=== PATIENT | male | born 1935 | race Caucasian/White ===

== ENCOUNTER 2016-11-25 16:41 | Inpatient (IN) ==
[2016-11-25] MEDS ORDERED: Furosemide 20 MG/2 ML VIAL IVP ONE (17:11)
[2016-11-25] MEDS ORDERED: Nitroglycerin 1 INCH/GM PACKET TP ONE (17:11)
[2016-11-25 17:22] LABS: Basophils # 0.1 K/mcL (0.0-0.2); Basophils % 0.6 %; Eosinophils # 0.5 K/mcL (0.0-0.6); Eosinophils % 6.3 %; Hematocrit 36.1 % (37.5-50.1); Immature Granulocytes % 0.2 % (0-4); Immature Platelets 3.3 % (1.1-6.1); Lymphocytes # 1.9 K/mcL (0.6-4.6); Lymphocytes % 23.6 %; Mean Corpuscular HGB Conc 30.5 g/dL (31.6-35.5); Mean Corpuscular Hemoglobin 28.5 pg (28.0-33.3); Mean Corpuscular Volume 93.5 fL (83.0-100.0); Mean Platelet Volume 9.9 fL (9.4-12.4); Monocytes # 0.6 K/mcL (0.0-1.3); Monocytes % 7.6 %; Platelet Count 176 K/mcL (140-400); Red Blood Count 3.86 M/mcL (4.19-5.50); Segmented Neutrophils % 61.7 %
--- NOTE | 2016-11-25 17:28 | Emergency Department Note ---
Disposition Clinical Impression: CHF (congestive heart failure) Qualifiers: Congestive heart failure type: unspecified congestive heart failure type Congestive heart failure chronicity: acute on chronic Qualified Code(s): I50.9 - Heart failure, unspecified Disposition: Admitted As Inpatient Condition: Fair Time of Disposition: 18:12 General Adult HPI - General Chief complaint: ED Shortness of Breath/Dyspnea Stated complaint: CHF Time Seen by Provider: 11/25/16 16:50 Source: EMS Mode of arrival: EMS Limitations: no limitations Nursing Notes Reviewed: Yes Vital Signs Reviewed: Yes - History of Present Illness HPI Narrative: Patient is a 81-year-old male with past medical history of CHF, CAD, COPD, triple CABG presenting from the [place] urgent care. According to EMS the patient has increasing swelling of his lower extremities and a right-sided pleural effusion that is increasing. The patient does not have any complaints at this time however he does appear to have mild dementia. He states the swelling has been going on for months and is beginning 1 pound per day he does have mild shortness of breath. His denies any fevers or chills no chest pain, nausea, diaphoresis. He states he does have a dry cough which is new. Pain Scale: 0 - Related Data Home Medications Medication Instructions Recorded Confirmed Albuterol Sulfate [Albuterol 2 puff IH BID PRN 01/18/16 01/18/16 Inhaler] Allopurinol [Zyloprim 300 MG] 300 mg PO DAILY 01/18/16 01/18/16 Aspirin 81 mg PO DAILY 01/18/16 01/18/16 Calcium Carbonate/Vitamin D3 1 each PO BID 01/18/16 01/18/16 [Calcium 500 + Vit D 200 Caplet] Carvedilol [Coreg] 6.25 mg PO BIDWM 01/18/16 01/18/16 Cholecalciferol (D-3) [Vitamin D] 1,000 unit PO TID 01/18/16 01/18/16 Clopidogrel [Plavix] 75 mg PO DAILY 01/18/16 01/18/16 Digoxin [Lanoxin] 0.125 mg PO MOWEFR 01/18/16 01/18/16 Docusate Sodium [Dok] 100 mg PO BID 01/18/16 01/18/16 Eplerenone [Inspra] 25 mg PO Q48H 01/18/16 01/18/16 Ergocalciferol (VITAMIN D2) 50,000 unit PO QWEEK 01/18/16 01/18/16 [Vitamin D2 (50,000 UNIT)] Ferrous Sulfate 325 mg PO DAILY 01/18/16 01/18/16 Fluorouracil [Fluoroplex] 1 appl TP BID 01/18/16 01/18/16 Furosemide [Lasix] 40 mg PO BID 01/18/16 01/18/16 Gabapentin [Neurontin] 200 mg PO QAM 01/18/16 01/18/16 Gabapentin [Neurontin] 300 mg PO HS 01/18/16 01/18/16 Meclizine HCl [Verticalm] 25 mg PO BID 01/18/16 01/18/16 Nitroglycerin [Nitrostat] 0.4 mg SL AD PRN 01/18/16 01/18/16 Pantoprazole Sodium [Protonix] 40 mg PO DAILY 01/18/16 01/18/16 Sennosides [Senna] 8.6 mg PO TID 01/18/16 01/18/16 glipiZIDE [Glipizide] 20 mg PO BID 01/18/16 01/18/16 Previous Rx's Medication Instructions Recorded levoFLOXacin [Levaquin] 500 mg PO DAILY #7 tablet 07/24/15 Allergies Allergy/AdvReac Type Severity Reaction Status Date / Time atorvastatin Allergy Anaphylaxis Verified 11/25/16 16:47 rosuvastatin Allergy Anaphylaxis Verified 11/25/16 16:47 spironolactone Allergy Anaphylaxis Verified 11/25/16 16:47 Past Medical History - Past Medical History Medical history: Reports: diabetes, renal disease, atrial fibrillation, hyperlipidemia, CHF, COPD Psychiatric history: Reports: other - Social History Smoking Status: Never smoker Smokeless Tobacco Status: No Alcohol use: Reports: none Drug use: Reports: none Physical Exam - General General appearance: alert, in no apparent distress - Head Head exam: atraumatic, normocephalic, normal inspection - Eye Eye exam: Present: normal appearance, PERRL, EOMI - ENT ENT exam: normal exam, normal oropharynx, mucous membranes moist - Neck Neck exam: Present: normal inspection, full ROM, trachea midline. Absent: tenderness - Chest Chest inspection: Present: normal inspection, symmetric chest wall rise. Absent : tenderness - Respiratory Respiratory exam: Absent: respiratory distress, wheezes, stridor - Expanded Respiratory Exam Location: rales: Right - Cardiovascular Cardiovascular exam: Present: regular rate, normal rhythm, normal heart sounds Course Course Narrative: This patient is a transfer from the [place] urgent care. According to the [place] medical record that came with the patient today. The patient is complaining of weight gain from August 2016 until today 179 pounds to 204 pounds. He also had a blood pressure remained 121/70 and now it is 94/59. The patient states she is also had weakness that makes it difficult for him to walk he was discharged from his group home today. He is also discharged from [facility] on October 29 and [facility] day he was originally admitted there for altered level of consciousness where he underwent an EEG and there is no sign of seizure activity and they attributed it to keep duration of pain medications in his system. His stressors here with a diagnosis of hypotension, CHF chronic, CAD, and CKD stage III. At the group home the patient had lab work and imaging performed. Chem panel showed a creatinine of 1.99 and a potassium of 5.4. CBC showed a hemoglobin of 11.3. The patient had a BNP of 2111. Coags were normal. CK was 142 which is normal. Liver enzymes and bilirubin were unremarkable. Magnesium was 2.8. Glucose is 114. The patient had a chest x-ray done at the [place] which showed cardiomegaly with interval increase in size of the right pleural effusion. 6 was considered to be small to medium underlying atelectasis/pneumonia at the right base likely. - Reevaluation(s) Reevaluation #1: Plan is to repeat the labs from the [place] here today including basic labs, BNP, troponin will perform a 2 view x-ray of the patient's chest. We will treat him with 20 mg of Lasix and nitroglycerin paste. The plan is to admit the patient for further evaluation and treatment of his symptoms. Time: 17:56 Reevaluation #2: Spoke with the hospitalists Dr. Gayla Culver, she agrees to accept the patient and requested we order DVT studies in the ED. She states that she will follow up with the results of the study inpatient. Time: 18:22 Vital Signs Temperature 97.8 F 11/25/16 16:44 Pulse Rate 74 11/25/16 16:44 Respiratory Rate 16 11/25/16 16:44 Blood Pressure 114/65 11/25/16 16:44 O2 Sat by Pulse Oximetry 97 11/25/16 16:44 Temperature 97.8 F 11/25/16 16:44 Pulse Rate 74 11/25/16 16:44 Respiratory Rate 16 11/25/16 16:44 Blood Pressure 114/65 11/25/16 16:44 O2 Sat by Pulse Oximetry 97 11/25/16 16:44 Oxygen Delivery Oxygen Delivery Room Air Medical Decision Making - Medical Records Medical records reviewed: Yes I reviewed the patient's medical records. - Lab Data Lab results reviewed: Yes I reviewed the patient's lab results. Result diagrams: 11/25/16 17:16 11/25/16 17:16 Lab Results 11/25/16 11/25/16 11/25/16 Range/Units 17:16 17:16 17:16 WBC 8.1 (4.3-11.1) K/mcL RBC 3.86 L (4.19-5.50) M/mcL Hgb 11.0 L (12.9-16.9) g/dL Hct 36.1 L (37.5-50.1) % MCV 93.5 (83.0-100.0) fL MCH 28.5 (28.0-33.3) pg MCHC 30.5 L (31.6-35.5) g/dL RDW 16.0 H (11.5-14.5) % Plt Count 176 (140-400) K/mcL MPV 9.9 (9.4-12.4) fL Immature Gran % 0.2 (0-4) % Seg Neutrophils % 61.7 % Lymphocytes % 23.6 % Monocytes % 7.6 % Eosinophils % 6.3 % Basophils % 0.6 % Neutrophils # 5.0 (1.6-8.9) K/mcL Lymphocytes # 1.9 (0.6-4.6) K/mcL Monocytes # 0.6 (0.0-1.3) K/mcL Eosinophils # 0.5 (0.0-0.6) K/mcL Basophils # 0.1 (0.0-0.2) K/mcL Immature Plt Fraction 3.3 (1.1-6.1) % Sodium 139 (136-145) mEq/L Potassium 4.3 (3.5-4.5) mEq/L Chloride 102 (98-109) mEq/L Carbon Dioxide 31 H (19-29) mEq/L BUN 40 H (8-26) mg/dL Creatinine 2.04 H (0.72-1.25) mg/dL Est GFR ( Amer) 38 L (> 60) Est GFR (Non-Af Amer) 32 L (> 60) BUN/Creatinine Ratio 20 (6-26) Glucose 104 H (70-99) mg/dL Calculated Osmolality 298 (280-300) Calcium 9.3 (8.6-10.8) mg/dL Troponin I 0.02 (0-0.03) ng/mL B-Natriuretic Peptide (0-100) pg/mL Digoxin 0.4 L (0.8-2.0) ng/mL // Range/Units 17:16 WBC (4.3-11.1) K/mcL RBC (4.19-5.50) M/mcL Hgb (12.9-16.9) g/dL Hct (37.5-50.1) % MCV (83.0-100.0) fL MCH (28.0-33.3) pg MCHC (31.6-35.5) g/dL RDW (11.5-14.5) % Plt Count (140-400) K/mcL MPV (9.4-12.4) fL Immature Gran % (0-4) % Seg Neutrophils % % Lymphocytes % % Monocytes % % Eosinophils % % Basophils % % Neutrophils # (1.6-8.9) K/mcL Lymphocytes # (0.6-4.6) K/mcL Monocytes # (0.0-1.3) K/mcL Eosinophils # (0.0-0.6) K/mcL Basophils # (0.0-0.2) K/mcL Immature Plt Fraction (1.1-6.1) % Sodium (136-145) mEq/L Potassium (3.5-4.5) mEq/L Chloride (98-109) mEq/L Carbon Dioxide (19-29) mEq/L BUN (8-26) mg/dL Creatinine (0.72-1.25) mg/dL Est GFR ( Amer) (> 60) Est GFR (Non-Af Amer) (> 60) BUN/Creatinine Ratio (6-26) Glucose (70-99) mg/dL Calculated Osmolality (280-300) Calcium (8.6-10.8) mg/dL Troponin I (0-0.03) ng/mL B-Natriuretic Peptide 559 H (0-100) pg/mL Digoxin (0.8-2.0) ng/mL - Radiology Data Radiology results reviewed: Yes I reviewed the patient's radiology results. Chest X-Ray 11/25/16 17:02 IMPRESSION: Focal airspace disease at the right lung base which is indeterminate and may represent atelectasis or pneumonia. A small right pleural effusion not excluded Prominent markings bilaterally raise the question of a background of edema D/ / Zion Hicks / Zion Hicks Interpreting Provider: Zion Hicks - EKG Data EKG #1 EKG attestation: Yes I reviewed and interpreted this EKG. EKG results narrative: Intravenous EKG. Performed at 16:50. EKG is a ventricular paced rhythm at 72 bpm. AL interval 62, QRS is 124, QTC is 431 QTc is 455 intervals within normal ranges. This is unchanged EKG when compared to the EKG done on 01/18/2016. Attestation Statement - Attestation Attestation: I personally interviewed and examined this patient and my medical decision- making was reviewed with the Resident Physician, Dr. Urbina. I agree with the documented findings, disposition and treatment plan as described except to the extent set forth below. Patient is a 81-year-old white male with a history of CHF, COPD, CAD who is sent [place] us from [place] urgent care with complaints of shortness of breath, any increasing bilateral lower extremity edema. Patient was just discharged from an extended care facility earlier today and upon arriving home was having difficulty ambulating due to the extent of his lower extremity edema and was having significant shortness of breath with ambulation. Family took him for evaluation at the urgent care and he was referred here for further evaluation. They had done labs and a portal chest x-ray at the [place] urgent care which showed some worsening of a pleural effusion that they had prior imaging of. Patient on arrival is in no acute distress, no respiratory distress is resting comfortably at bedside and has no complaints at this time. He appears mildly confused but is alert and oriented 2. I agree with patient's physical exam findings as documented. Patient's EKG is unchanged from prior with no acute ischemic change. Patient was placed on a home energy auditor continuous pulse ox and administered aspirin and 20 of Lasix at the [place] prior to arrival here. Patient will receive an additional 20 mg of Lasix and Nitropaste. Labs show an elevated BNP, acute on chronic renal insufficiency, and trace right pleural effusion with mild CHF on chest x-ray. Patient has remained stable with stable vital signs throughout his ED course. We will admit him for further evaluation and management of CHF and likely patient will need psych social worker consult for placement upon discharge.
[2016-11-25 17:34] LABS: Calcium 9.3 mg/dL (8.6-10.8); Potassium 4.3 mEq/L (3.5-4.5)
[2016-11-25 17:52] LABS: Digoxin 0.4 ng/mL (0.8-2.0)
[2016-11-25] MEDS ORDERED: Naloxone 0.4 MG/ML INJ IVP PRN (20:11)
[2016-11-25] MEDS ORDERED: Ondansetron 4 MG/2 ML VIAL IVP PRN (20:11)
[2016-11-25] MEDS ORDERED: *HR* Dextrose 50 % in Water (Syg) 50 ML SYRINGE IVP PRN (20:11)
[2016-11-25] MEDS ORDERED: Dextrose Gel 15 GM PO PRN ×2 (20:11)
[2016-11-25] MEDS ORDERED: *HR* Morphine 2 MG/ML SYRINGE IVP PRN (20:11)
[2016-11-25] MEDS ORDERED: D5% in Water 1,000 ML IVC PRN (20:11)
[2016-11-25] MEDS ORDERED: Acetaminophen 325 MG TABLET PO PRN (20:11)
[2016-11-25] MEDS ORDERED: Nitroglycerin 0.4 MG TAB.SUBL SL PRN (20:14)
--- NOTE | 2016-11-25 20:54 | Internal Med History&Physical ---
Date of Encounter: 11/25/16 Time of Encounter: 20:10 Assessment and Plan (1) CHF (congestive heart failure) Current visit: Yes Status: Acute 1. Will start patient on IV Lasix drip and monitor I/O closely. 2. Will order ECHO for the morning as I am unable to find any recent ECHO report through our and [place] records available to me. 3. Continue home meds as appropriate. 4. Will provide oxygen as necessary for symptom relief. Qualifiers: Congestive heart failure type: systolic Congestive heart failure chronicity : acute on chronic Qualified Code(s): I50.23 - Acute on chronic systolic ( congestive) heart failure (2) CKD (chronic kidney disease) stage 3, GFR 30-59 ml/min Current visit: Yes Status: Chronic 1. Monitor renal function and I/O closely. 2. No MARLO for now due to CHF exacerbation and CKD. 3. Patient does not see a tar boiler at [place] per our discussion. 4. He would benefit from outpatient nephrology follow up. 5. Consider inpatient consult if renal function declines. (3) IDDM (insulin dependent diabetes mellitus) Current visit: Yes Status: Chronic 1. Will continue home Lantus dosing and SSI. 2. No oral agents (Glipizide) while in the hospital. 3. Given his CKD, I recommend stopping his Glipizide upon discharge as it could lead to hypoglycemia. (4) DVT prophylaxis Current visit: Yes Status: Acute 1. Heparin SQ. Internal Medicine - H&P: HPI Chief complaint: SOB; LE edema Admitted From: Emergency Dept Plans for Post Hospital Care: Home History of present illness: Mr. Krishna is a 81 year old male who was sent to the ER from the [facility] today. He presented there with complaints of shortness of breath, increasing lower extremity edema, and increasing abdominal girth. Because of the symptoms and history of CHF, he was referred to our ER. In the ER, patient had workup consistent with CHF and he was treated initially with IV dose of Lasix. He started to urinate and is starting to feel better. Upon my assessment of the patient, he states he has been hospitalized 5 times now in the last 2 months for CHF. He has chronic kidney disease and chronic systolic heart failure. He states his ejection fraction is around 25%. He states he has been doing well until a few months ago when he started developing increasing lower extremity edema and abdominal girth. He states his waist has increased about 3 inches in size over the last few months. He also states he has gained about 30 pounds. He denies any change in medications and/or diet or fluid intake. He denies any fevers, productive cough, chills, body aches, nausea, or vomiting. He denies any anginal type chest pain as well. He does admit to having orthopnea and paroxysmal nocturnal dyspnea, however. Past Med Surg Social Fam HX - Past Medical History Attestation: Yes The following information was validated with the patient. Source: patient, old records reviewed Medical history: diabetes, renal disease, atrial fibrillation, hyperlipidemia, CHF, COPD Psychiatric history: no psych history - Past Surgical History Surgical History: pacemaker/AICD - Social History Smoking Status: Never smoker Smokeless Tobacco Status: No Alcohol use: none Drug use: none Occupational status: retired Current living situation: Home, With Family Activity Level: Independent ambulation - Family History Mother Living Status: Hx Family Cardiac Disorders: Yes Hx Family Respiratory Disorders: No Father History Unknown: Yes Living Status: Internal Medicine - H&P: Meds Albuterol Sulfate [Albuterol Inhaler] 2 puff IH BID PRN 01/18/16 [History] Allopurinol [Zyloprim 300 MG] 300 mg PO DAILY 01/18/16 [History] Aspirin 162 mg PO DAILY 01/18/16 [History] Calcium Carbonate/Vitamin D3 [Calcium 500 + Vit D 200 Caplet] 1 each PO BID 10/26 [History] Cholecalciferol (D-3) [Vitamin D] 4,000 unit PO DAILY 01/18/16 [History] Clopidogrel [Plavix] 75 mg PO DAILY 01/18/16 [History] Digoxin [Lanoxin] 0.125 mg PO MOWEFR 01/18/16 [History] Docusate Sodium [Dok] 100 mg PO BID 01/18/16 [History] Ferrous Sulfate 325 mg PO BID 01/18/16 [History] Furosemide [Lasix] 40 mg PO BID 01/18/16 [History] Meclizine HCl [Verticalm] 25 mg PO BID 01/18/16 [History] Nitroglycerin [Nitrostat] 0.4 mg SL Q5M PRN 01/18/16 [History] Pantoprazole Sodium [Protonix] 40 mg PO DAILY 01/18/16 [History] Sennosides [Senna] 8.6 mg PO TID 01/18/16 [History] Betamethasone Dipropionate 1 appl TP TID 11/25/16 [History] Insulin Glargine,Hum.rec.anlog [Lantus Solostar] 38 unit SQ QAM 11/25/16 [ History] Ketoconazole 2% CRM [Nizoral Cream] 1 appl TP BID 11/25/16 [History] Lidocaine Patch [Lidoderm 5% patch] 2 each TP DAILY 11/25/16 [History] Metoprolol Succinate 100 mg PO DAILY 11/25/16 [History] Spironolactone [Aldactone] 25 mg PO DAILY 11/25/16 [History] glipiZIDE [Glucotrol] 5 mg PO BIDWM 11/25/16 [History] Allergies atorvastatin Allergy (Verified 11/25/16 16:47) Anaphylaxis rosuvastatin Allergy (Verified 11/25/16 16:47) Anaphylaxis - Constitutional Constitutional: weight gain, no chills, no fever(s), no night sweats - EENT Eyes: no blurry vision, no change in vision Ears: no ear pain, no tinnitus Nose, mouth and throat: no nasal congestion, no nasal discharge, no sore throat - Cardiovascular Cardiovascular ROS IM: dyspnea, dyspnea on exertion, edema, orthopnea, paroxysmal nocturnal dyspnea, no chest pain, no irregular heart rhythm - Respiratory Respiratory: no cough, no hemoptysis, no wheezing, no chest congestion, no excessive phlegm production, no change in phlegm color - Gastrointestinal Gastrointestinal: bloating, no abdominal pain, no diarrhea, no hematemesis, no hematochezia, no melena, no nausea, no vomiting Additional comments: + increased girth - Genitourinary Genitourinary ROS male: no dysuria, no flank pain, no hematuria - Musculoskeletal Musculoskeletal ROS IM: no back pain, no joint swelling - Integumentary Integumentary IM: no rash, no jaundice - Neurological Neurological ROS: no dizziness, no focal weakness, no frequent falls - Psychiatric Psychiatric: no anxiety, no depression - Endocrine Endocrine IM: no cold intolerance, no heat intolerance, no polydipsia, no polyuria - Hematologic/Lymphatic Hematologic/Lymphatic: no lymphadenopathy - Allergic/Immunologic Allergic/Immunologic: no wheezing, no GI upset with certain foods - Constitutional Vitals: Temp Pulse Resp BP Pulse Ox 97.5 F L 70 15 120/66 99 11/25/16 20:18 11/25/16 20:18 11/25/16 20:18 11/25/16 20:18 11/25/16 20:18 General appearance: Present: cooperative, A&O X 3, pleasant, no acute distress, answers questions appropriately - Head Head exam: Present: atraumatic, normal inspection - Expanded Head Exam Head exam expanded: Absent: abrasion, contusion, general tenderness - Eye Eye exam: Present: EOMI, normal appearance, PERRL. Absent: scleral icterus Pupils: Present: normal accommodation - ENT ENT exam: Present: mucous membranes moist, normal exam - Neck Neck exam general surgery: Present: full ROM, supple. Absent: tenderness, thyromegaly - Expanded Neck Exam Neck exam: Absent: carotid bruit - Respiratory Respiratory exam: Present: rales (both bases). Absent: accessory muscle use, chest wall tenderness, respiratory distress, wheezes - Cardiovascular Cardiovascular exam: Present: distant heart sounds, +S1, +S2. Absent: diastolic murmur, JVD, systolic murmur Additional comments: palpable AICD/pacer in left upper chest wall - GI/Abdominal GI/Abdominal exam: Present: normal bowel sounds, soft. Absent: guarding, hepatomegaly, rebound, splenomegaly, tenderness Additional comments: palpable edema (anasarca) to lower abdominal wall - Extremities Exam Extremities exam: Present: pedal edema (4+), warm, radial pulses palpable and symmetrical. Absent: calf tenderness, joint swelling, tenderness - Back Exam Back exam: Present: normal inspection. Absent: CVA tenderness (L), CVA tenderness (R) - Neurological Exam Neurological exam: Present: alert, CN II-XII intact, oriented X3, no focal deficits - Psychiatric Psychiatric exam: Present: normal affect, normal mood - Skin Skin exam: Present: dry, warm. Absent: rash Internal Med - H&P Results - Labs CBC & Chem 7: 11/25/16 17:16 11/25/16 17:16 - EKG Data -: EKG Interpreted by Myself - EKG Data Prior EKG available for review: yes When compared to previous EKG: there is no significant change EKG comments: 11/25/16 21:01 Ventricular paced rhythm - Diagnostic Studies Chest x-ray Status: image reviewed by me (cardiomegaly; right sided plueral effusion; increased lung markings)
[2016-11-25 21:05] LABS: Hemoglobin A1C 7.3 %
[2016-11-25] MEDS: Sennosides 8.6 MG TABLET PO SCH (22:17)
[2016-11-25] MEDS: *HR* Heparin 5,000 UNIT/ML VIAL SQ SCH (22:17)
[2016-11-25] MEDS: Furosemide 240 MG in D5% in Water 96 ML IVC SCH (22:18)
[2016-11-25] MEDS: *HR* HYDROcodone/Acet 5/325 mg TABLET PO PRN (22:57)
[2016-11-26] MEDS: *HR* HYDROcodone/Acet 5/325 mg TABLET PO PRN ×2 (06:11→16:09)
[2016-11-26] MEDS: *HR* Heparin 5,000 UNIT/ML VIAL SQ SCH ×2 (06:11→18:14)
[2016-11-26 06:30] LABS: Basophils # 0.1 K/mcL (0.0-0.2); Basophils % 0.8 %; Eosinophils # 0.5 K/mcL (0.0-0.6); Eosinophils % 7.6 %; Hematocrit 32.1 % (37.5-50.1); Immature Granulocytes % 0.3 % (0-4); Lymphocytes # 1.6 K/mcL (0.6-4.6); Lymphocytes % 24.1 %; Mean Corpuscular HGB Conc 31.2 g/dL (31.6-35.5); Mean Corpuscular Hemoglobin 28.7 pg (28.0-33.3); Mean Platelet Volume 10.2 fL (9.4-12.4); Monocytes # 0.5 K/mcL (0.0-1.3); Monocytes % 7.7 %; Neutrophils # 3.9 K/mcL (1.6-8.9); Platelet Count 155 K/mcL (140-400); Red Blood Count 3.49 M/mcL (4.19-5.50); Red Cell Distribution Width 15.9 % (11.5-14.5); Segmented Neutrophils % 59.5 %
[2016-11-26 06:45] LABS: Albumin 2.8 g/dL (3.5-5.0); Bilirubin,Total 0.8 mg/dL (0.2-1.2); Calcium 9.3 mg/dL (8.6-10.8); Chol/HDL Ratio 4.7 (0-4.9); Globulin 2.9 g/dL (2.4-3.5); Potassium 4.4 mEq/L (3.5-4.5); Total Protein 5.7 g/dL (6.0-8.3)
[2016-11-26] MEDS: Insulin LISPRO 300 UNITS/3 ML VIAL SQ SCH ×4 (08:06→20:17)
[2016-11-26] MEDS: Insulin DETEMIR 100 UNIT/ML X5UNITS SQ SCH (08:52)
[2016-11-26] MEDS: Aspirin 81 MG TAB.CHEW PO SCH (08:53)
[2016-11-26] MEDS: Metoprolol XL (24 HR) Succ 50 MG TAB.ER.24H PO SCH (08:53)
[2016-11-26] MEDS: Cholecalciferol (D-3) 1,000 UNIT TABLET PO SCH (08:54)
[2016-11-26] MEDS: Sennosides 8.6 MG TABLET PO SCH ×3 (08:54→20:12)
[2016-11-26] MEDS: Spironolactone 25 MG TABLET PO SCH (08:54)
[2016-11-26] MEDS: *HR* Digoxin 0.125 MG TABLET PO SCH (08:56)
--- NOTE | 2016-11-26 11:28 | Venous Imaging Report ---
LE Venous Duplex Patient Name:Haider Krishna Order Number:[id number] Procedure Date:11/25/2016 Date:1935ge:81 yrs Gender:Male Location:[facility] Room #: 3B11 Nutrition Assistant:Pily Gaitan RVT Referring MD:Watson Sheppard MD senior environmental consultant:[facility] Reading MD:Zion Kimble MD Secondary Indications: Risk Factors Yes/No None Impressions: Normal bilateral lower extremity deep and superficial venous exam. Findings Venous Duplex Results: Right: Venous imaging of the lower extremity reveals full patency and normal vessel compressibility of the right distal iliac, right common femoral, right superficial femoral, right popliteal, right posterior tibial, right peroneal, right great saphenous and right lesser saphenous. Doppler signals in the evaluated veins were normal. Left: Venous imaging of the lower extremity reveals full patency and normal vessel compressibility of the left distal iliac, left common femoral, left superficial femoral, left popliteal, left posterior tibial, left peroneal, left great saphenous and left lesser saphenous. Doppler signals in the evaluated veins were normal. Prior Study: No prior study available for comparison. Updated by Zion Kimble MD on 11/26/2016 11:21:15 AM electronically signed on 11/26/2016 11:21:26 AM with status of Final
--- NOTE | 2016-11-26 15:09 | Electrocardiograph Report ---
[place] [id number] Test Date: 2016-11-25 Pat Name: Haider Krishna Department: 105 Room: 3B11 Gender: M Rn Private Duty: TANNER : 1935 Requested By: Anabel Dunlap Order Number: [id number] Reading MD: Juan Manuel Rebollar MD Measurements Intervals [place] Rate: 72 P: 173 NV: 62 QRS: -68 QRSD: 124 T: 129 QT: 431 QTc: 455 Interpretive Statements ELECTRONIC VENTRICULAR PACEMAKER BASELINE ARTIFACT, REPEAT EKG Electronically Signed On 11-26-2016 15:07:39 EDT by Juan Manuel Rebollar MD
--- NOTE | 2016-11-26 17:57 | Internal Med Progress Note ---
Date of Encounter: 11/26/16 Time of Encounter: 09:20 - Assessment and plan (1) CHF (congestive heart failure) Current Visit: Yes Status: Acute Assessment and plan: Acute exacerbation of all chronic CHF systolic dysfunction LVEF 30% - improving slowly Continue IV Lasix, strict I's and O's, daily weight, O2 via nasal cannula as needed Continue aspirin, Plavix, digoxin, metoprolol, Aldactone EKG - paced rhythm Troponin - 0.02 BN peptide - 559 Chest x-ray - focal airspace disease at right lung base, prominent bilateral markings likely edema Echocardiogram - LVEF 30%, severe global and regional LV systolic dysfunction, mild to moderately dilated LV, RV normal size with moderate reduction in function, moderate TR and MR Cardiac telemetry, labs in a.m. Qualifiers: Congestive heart failure type: systolic Congestive heart failure chronicity : acute on chronic Qualified Code(s): I50.23 - Acute on chronic systolic ( congestive) heart failure (2) CKD (chronic kidney disease) stage 3, GFR 30-59 ml/min Current Visit: Yes Status: Chronic Assessment and plan: Mild acute kidney injury on CT be stage III - due to CHF exacerbation - improving slowly Labs in a.m., avoid nephrotoxic agents Follow-up with nephrology as outpatient (3) IDDM (insulin dependent diabetes mellitus) Current Visit: Yes Status: Chronic Assessment and plan: Diabetes mellitus type 2, insulin-dependent, hyperglycemia Continue insulin sliding scale, Levemir, glucose checks (4) COPD (chronic obstructive pulmonary disease) Current Visit: Yes Status: Chronic Assessment and plan: COPD - stable, not in exacerbation Qualifiers: COPD type: emphysema Emphysema type: unspecified Qualified Code(s): J43.9 - Emphysema, unspecified (5) DVT prophylaxis Current Visit: Yes Status: Acute Assessment and plan: Continue heparin subcutaneous - Time Spent With Patient 25 - 35 minutes - Subjective Interval history: Examined this morning. Patient is awake and alert. Not in any distress. Denies chest pain or shortness of breath. No fever. Hemodynamically stable. States he feels better this morning. Tolerating oral diet well. Ambulating well. No other acute events or complaints. - Constitutional Vitals: Temp Pulse Resp BP Pulse Ox 97.9 F 70 16 108/63 98 11/26/16 15:35 11/26/16 15:35 11/26/16 15:35 11/26/16 15:35 11/26/16 15:35 General appearance: Present: cooperative, A&O X 3, pleasant, no acute distress, answers questions appropriately - Head Head exam: Present: atraumatic - Eye Eye exam: Present: EOMI - ENT ENT exam: Present: mucous membranes moist - Neck Neck exam general surgery: Present: supple - Respiratory Respiratory exam: Present: rales (Mild scattered bilateral). Absent: rhonchi, wheezes, tachypnea - Cardiovascular Cardiovascular exam: Present: RRR, +S1, +S2, systolic murmur - GI/Abdominal GI/Abdominal exam: Present: soft. Absent: distended, firm, guarding, tenderness Additional comments: ansarca to lower abdominal wall+ - Extremities Exam Extremities exam: Present: pedal edema (b/l lower leg 3+ pitting edema), radial pulses palpable and symmetrical. Absent: cyanotic - Neurological Exam Neurological exam: Present: alert, oriented X3, no focal deficits. Absent: facial droop, speech deficit Internal Medicine: Result - Labs CBC & Chem 7: 11/26/16 06:00 11/26/16 06:00 Labs: Short CBC 11/26/16 Range/Units 06:00 WBC 6.6 (4.3-11.1) K/mcL Hgb 10.0 L (12.9-16.9) g/dL Hct 32.1 L (37.5-50.1) % Plt Count 155 (140-400) K/mcL Neutrophils # 3.9 (1.6-8.9) K/mcL BMP 11/26/16 06:00 Sodium 140 Potassium 4.4 Chloride 103 Carbon Dioxide 30 H BUN 40 H Creatinine 1.99 H Glucose 144 H Calcium 9.3 Liver Function 11/26/16 Range/Units 06:00 Total Bilirubin 0.8 (0.2-1.2) mg/dL AST 24 (5-34) Units/L ALT 20 (0-55) Units/L Alkaline Phosphatase 101 (38-126) Units/L Albumin 2.8 L (3.5-5.0) g/dL Consult Discharge Plan - Plan [facility]: [facility] [Primary Care Provider] -
[2016-11-26] MEDS: Furosemide 240 MG in D5% in Water 96 ML IVC SCH (22:00)
[2016-11-27] MEDS: *HR* HYDROcodone/Acet 5/325 mg TABLET PO PRN ×4 (01:14→21:26)
[2016-11-27 05:37] LABS: Calcium 9.4 mg/dL (8.6-10.8); Potassium 4.1 mEq/L (3.5-4.5)
[2016-11-27] MEDS: *HR* Heparin 5,000 UNIT/ML VIAL SQ SCH ×2 (06:22→17:29)
[2016-11-27] MEDS: Insulin LISPRO 300 UNITS/3 ML VIAL SQ SCH ×4 (07:48→21:22)
[2016-11-27] MEDS: Insulin DETEMIR 100 UNIT/ML X5UNITS SQ SCH (09:31)
[2016-11-27] MEDS: Sennosides 8.6 MG TABLET PO SCH ×3 (09:32→21:25)
[2016-11-27] MEDS: Cholecalciferol (D-3) 1,000 UNIT TABLET PO SCH (09:32)
[2016-11-27] MEDS: Spironolactone 25 MG TABLET PO SCH (09:32)
[2016-11-27] MEDS: Aspirin 81 MG TAB.CHEW PO SCH (09:32)
[2016-11-27] MEDS: Metoprolol XL (24 HR) Succ 50 MG TAB.ER.24H PO SCH (09:32)
--- NOTE | 2016-11-27 11:21 | Discharge Summary ---
Date of Encounter: 11/27/16 Time of Encounter: 09:35 - Discharge Diagnosis (1) CHF (congestive heart failure) Priority: Primary Status: Acute Comments: Acute exacerbation of all chronic CHF systolic dysfunction LVEF 30% - improved Continue Lasix, strict I's and O's, daily weight Continue aspirin, Plavix, digoxin, metoprolol, Aldactone EKG - paced rhythm Troponin - 0.02 BN peptide - 559 Chest x-ray - focal airspace disease at right lung base, prominent bilateral markings likely edema Echocardiogram - LVEF 30%, severe global and regional LV systolic dysfunction, mild to moderately dilated LV, RV normal size with moderate reduction in function, moderate TR and MR Advised to continue her home medication, Lasix dose increased to 40 mg twice daily Follow-up regularly with PCP and spindle carver at the [facility] Qualifiers: Congestive heart failure type: systolic Congestive heart failure chronicity : acute on chronic Qualified Code(s): I50.23 - Acute on chronic systolic ( congestive) heart failure (2) CKD (chronic kidney disease) stage 3, GFR 30-59 ml/min Priority: Primary Status: Chronic Comments: Mild acute kidney injury on CKD stage III - secondary to CHF exacerbation avoid nephrotoxic agents Follow-up with nephrology as outpatient (3) IDDM (insulin dependent diabetes mellitus) Priority: Secondary Status: Chronic Comments: Diabetes mellitus type 2, insulin-dependent, hyperglycemia Continue insulin sliding scale, Levemir, glucose checks (4) COPD (chronic obstructive pulmonary disease) Priority: Secondary Status: Chronic Comments: COPD - stable, not in exacerbation Qualifiers: COPD type: emphysema Emphysema type: unspecified Qualified Code(s): J43.9 - Emphysema, unspecified - Discharge Medications Prescriptions: Furosemide [Lasix] 40 mg PO BID 30 Days Lisinopril [Zestril] 10 mg PO DAILY #30 tablet Home Medications: Albuterol Sulfate [Albuterol Inhaler] 2 puff IH BID PRN 01/18/16 [History] Allopurinol [Zyloprim 300 MG] 300 mg PO DAILY 01/18/16 [History] Aspirin 162 mg PO DAILY 01/18/16 [History] Calcium Carbonate/Vitamin D3 [Calcium 500-Vit D3 200 Caplet] 1 each PO BID 01/17 [History] Cholecalciferol (D-3) [Vitamin D] 4,000 unit PO DAILY 01/18/16 [History] Clopidogrel [Plavix] 75 mg PO DAILY 01/18/16 [History] Digoxin [Lanoxin] 0.125 mg PO MOWEFR 01/18/16 [History] Docusate Sodium [Dok] 100 mg PO BID 01/18/16 [History] Ferrous Sulfate 325 mg PO BID 01/18/16 [History] Meclizine HCl [Verticalm] 25 mg PO BID 01/18/16 [History] Nitroglycerin [Nitrostat] 0.4 mg SL Q5M PRN 01/18/16 [History] Pantoprazole Sodium [Protonix] 40 mg PO DAILY 01/18/16 [History] Sennosides [Senna] 8.6 mg PO TID 01/18/16 [History] Betamethasone Dipropionate 1 appl TP TID 11/25/16 [History] Insulin Glargine,Hum.rec.anlog [Lantus Solostar] 38 unit SQ QAM 11/25/16 [ History] Ketoconazole 2% CRM [Nizoral Cream] 1 appl TP BID 11/25/16 [History] Lidocaine Patch [Lidoderm 5% patch] 2 each TP DAILY 11/25/16 [History] Metoprolol Succinate 100 mg PO DAILY 11/25/16 [History] Spironolactone [Aldactone] 25 mg PO DAILY 11/25/16 [History] glipiZIDE [Glucotrol] 5 mg PO BIDWM 11/25/16 [History] Furosemide [Lasix] 40 mg PO BID 30 Days 11/27/16 [Rx] Lisinopril [Zestril] 10 mg PO DAILY #30 tablet 11/27/16 [Rx] Allergies/Adverse Reactions: 3 Allergy/AdvReac Type Severity Reaction Status Date / Time atorvastatin Allergy Anaphylaxis Verified 11/25/16 16:47 rosuvastatin Allergy Anaphylaxis Verified 11/25/16 16:47 Procedures/tests Complete & Pending: Procedures Performed prior 72 hours Category Date Time Status EV echocardiogram Routine Y 11/26/16 20:11 Completed Date of admission: 11/25/16 18:33 Primary care physician: PCP AVI Anticipated date of discharge: 11/28/16 - Patient Status Disposition: Home, Self-Care Condition: Good Functional capacity at discharge: independent ambulation Overall status at discharge: patient is progressing back to baseline - Discharge Instructions [facility]: [facility] Provider[facility] - Additional Instructions: - Advised 1500 mL fluid restriction daily - Advised to take Lasix 40 mg twice daily - We will need to establish care with nephrology - Advised to follow-up with PCP and cardiology at the [facility] regularly - Returns if symptoms worsen - Diet and Activity Activity: increase activity as tolerated Diet: low fat, low cholesterol, low salt diet Hospital course: Mr. Krishna is a 81 year old male with past medical history of diabetes, renal disease, atrial fibrillation, CHF, COPD, status post AICD and hyperlipidemia. Patient presented to the ED with complaints of shortness of breath and lower extremity edema. Patient stated the symptoms started a few days prior to admission and had been gradually worsening. Patient does have a history of CHF with a low ejection fraction of around 25%. Patient states that he has gained almost 30 pounds and his abdominal girth has also increased. Patient was admitted for acute CHF exacerbation. He was started on IV Lasix drip. Strict I 's and O's were maintained and daily weights were recorded. Patient had good diuresis during his stay in the hospital. Patient was continued on insulin sliding scale and glucose checks for his diabetes. He was on heparin subcutaneous for DVT prophylaxis. Patient does have chronic kidney disease stage III and his creatinine and GFR seems to be at baseline at this time. Patient was continued on all his home medications. He will need to continue Lasix 40 mg twice daily when he is discharged. Patient states he follows up regularly with his spindle carver at the [facility]. Echocardiogram revealed LVEF 30% with severe global and regional LV systolic dysfunction with mild to moderately dilated LV. Patient will be continued on aspirin and Plavix and digoxin, Aldactone and metoprolol. Patient is tolerating oral diet well and ambulating well. He had no other acute events or complications during his stay in the hospital. Patient and his family members including daughter and have been explained about his condition and plan of care in detail. They all understood and agreed. No unanswered questions. Patient is being discharged in a stable condition. - Time Spent with Patient Total time spent providing and/or coordinating discharge services: Greater than 30 minutes - Constitutional Vitals: Temp Pulse Resp BP Pulse Ox 97.6 F 70 16 118/61 100 11/27/16 11:08 11/27/16 11:08 11/27/16 11:08 11/27/16 11:08 11/27/16 11:08 General appearance: Present: cooperative, A&O X 3, pleasant, no acute distress, answers questions appropriately - Head Head exam: Present: atraumatic - Eye Eye exam: Present: EOMI - ENT ENT exam: Present: mucous membranes moist - Neck Neck exam general surgery: Present: supple - Respiratory Respiratory exam: Present: CTAB. Absent: rales, rhonchi, wheezes, tachypnea - Cardiovascular Cardiovascular exam: Present: RRR, +S1, +S2, systolic murmur - GI/Abdominal GI/Abdominal exam: Present: soft. Absent: distended, firm, guarding, tenderness Additional comments: ansarca to lower abdominal wall - improving - Extremities Exam Extremities exam: Present: pedal edema (Bilateral leg 2+ pitting edema now improving), radial pulses palpable and symmetrical. Absent: cyanotic - Neurological Exam Neurological exam: Present: alert, oriented X3, no focal deficits. Absent: facial droop, speech deficit
[2016-11-27] MEDS: Furosemide 40 MG/4 ML VIAL IVP SCH (21:26)
[2016-11-28] MEDS: *HR* Heparin 5,000 UNIT/ML VIAL SQ SCH (06:17)
[2016-11-28] MEDS: *HR* HYDROcodone/Acet 5/325 mg TABLET PO PRN (06:19)
[2016-11-28 07:22] VITALS: BP 119/71
[2016-11-28] MEDS: Insulin LISPRO 300 UNITS/3 ML VIAL SQ SCH (07:47)
[2016-11-28] MEDS: Sennosides 8.6 MG TABLET PO SCH (08:53)
[2016-11-28] MEDS: Spironolactone 25 MG TABLET PO SCH (08:53)
[2016-11-28] MEDS: Metoprolol XL (24 HR) Succ 50 MG TAB.ER.24H PO SCH (08:53)
[2016-11-28] MEDS: Cholecalciferol (D-3) 1,000 UNIT TABLET PO SCH (08:53)
[2016-11-28] MEDS: Aspirin 81 MG TAB.CHEW PO SCH (08:53)
[2016-11-28] MEDS: Insulin DETEMIR 100 UNIT/ML X5UNITS SQ SCH (08:54)
[2016-11-28] MEDS: Furosemide 40 MG/4 ML VIAL IVP SCH (08:54)
[2016-11-28] MEDS: *HR* Digoxin 0.125 MG TABLET PO SCH (08:56)
--- NOTE | 2016-11-28 11:06 | Internal Med Progress Note ---
Date of Encounter: 11/28/16 Time of Encounter: 09:00 - Assessment and plan (1) CHF (congestive heart failure) Current Visit: Yes Status: Acute Assessment and plan: Acute exacerbation of chronic CHF systolic dysfunction LVEF 30% - improved Continue Lasix, fluid restriction 1.5 L daily Continue aspirin, Plavix, digoxin, metoprolol, Aldactone EKG - paced rhythm Troponin - 0.02 BN peptide - 559 Chest x-ray - focal airspace disease at right lung base, prominent bilateral markings likely edema Echocardiogram - LVEF 30%, severe global and regional LV systolic dysfunction, mild to moderately dilated LV, RV normal size with moderate reduction in function, moderate TR and MR Stable for discharge today, advised follow-up with cloth printer helper at the [facility] next week Qualifiers: Congestive heart failure type: systolic Congestive heart failure chronicity : acute on chronic Qualified Code(s): I50.23 - Acute on chronic systolic ( congestive) heart failure (2) CKD (chronic kidney disease) stage 3, GFR 30-59 ml/min Current Visit: Yes Status: Chronic Assessment and plan: Mild acute kidney injury on CKD stage III - due to CHF exacerbation - stable avoid nephrotoxic agents Follow-up with nephrology as outpatient (3) IDDM (insulin dependent diabetes mellitus) Current Visit: Yes Status: Chronic Assessment and plan: Diabetes mellitus type 2, insulin-dependent, hyperglycemia Continue Lantus home dose Advised to stop glipizide if PCP agrees, chronic kidney disease (4) COPD (chronic obstructive pulmonary disease) Current Visit: Yes Status: Chronic Assessment and plan: COPD - stable, not in exacerbation Qualifiers: COPD type: emphysema Emphysema type: unspecified Qualified Code(s): J43.9 - Emphysema, unspecified - Time Spent With Patient 25 - 35 minutes - Subjective Interval history: Examined this morning. Patient is awake and alert. Not in any distress. Denies chest pain or shortness of breath. States he feels better. No fever. Hemodynamically stable. Tolerating oral diet well. Ambulating well. No other acute events or complaints. Stable for discharge today. Advised to continue Lasix 40 mg three times daily. Patient and family members explained about condition and plan care in detail. They understood and agreed. No unanswered questions. - Constitutional Vitals: Temp Pulse Resp BP Pulse Ox 97.5 F L 69 16 119/71 94 11/28/16 07:20 11/28/16 07:20 11/28/16 07:20 11/28/16 07:20 11/28/16 09:27 General appearance: Present: cooperative, A&O X 3, pleasant, no acute distress, answers questions appropriately - Head Head exam: Present: atraumatic - Eye Eye exam: Present: EOMI - ENT ENT exam: Present: mucous membranes moist - Respiratory Respiratory exam: Present: CTAB. Absent: rales, rhonchi, wheezes, tachypnea - Cardiovascular Cardiovascular exam: Present: RRR, +S1, +S2, systolic murmur - GI/Abdominal GI/Abdominal exam: Present: soft. Absent: distended, firm, guarding, tenderness - Extremities Exam Extremities exam: Present: pedal edema (Bilateral lower leg 3+ edema, slowly improving), radial pulses palpable and symmetrical. Absent: cyanotic - Neurological Exam Neurological exam: Present: alert, oriented X3, no focal deficits. Absent: facial droop, speech deficit Internal Medicine: Result - Labs CBC & Chem 7: 11/26/16 06:00 11/27/16 03:32 Consult Discharge Plan - Plan Instructions: Heart Failure (DC), Fluid Restriction (DC) Additional Instructions: - Advised 1500 mL fluid restriction daily - Advised to take Lasix 40 mg twice daily - We will need to establish care with nephrology - Advised to follow-up with PCP and cardiology at the [facility] regularly - Returns if symptoms worsen [facility]errals: [facility] [Primary Care Provider[facility] - Prescriptions: Furosemide [Lasix] 40 mg PO TID #30 tablet Lisinopril [Zestril] 10 mg PO DAILY #30 tablet
--- NOTE | 2016-11-28 17:12 | Electrocardiograph Report ---
[place] [id number] Test Date: 2016-11-28 Pat Name: Haider Krishna Department: 113 Room: 3B11 Gender: M Facilities Operations Technician: STAN : 1935 Requested By: Caitlyn Ng Order Number: [id number] Reading MD: Briana Smith Measurements Intervals [place] Rate: 72 P: PA: 0 QRS: -64 QRSD: 172 T: 117 QT: 494 QTc: 517 Interpretive Statements ELECTRONIC VENTRICULAR PACEMAKER ABNORMAL RHYTHM ECG Electronically Signed On 11-28-2016 17:10:31 EDT by Briana Smith
== END 2016-11-28 12:12 | disposition home or self-care (01) | DRG 292 ==
LOC: EMEROO 16:41 → 3BNU 18:33
PROVIDERS: ADMIT Registered Nurse; ATTEND Registered Nurse

== ENCOUNTER 2016-11-29 19:47 | Inpatient (IN) ==
[2016-11-29 20:36] LABS: Basophils % 0.5 %; Eosinophils # 0.4 K/mcL (0.0-0.6); Eosinophils % 5.3 %; Hematocrit 33.8 % (37.5-50.1); Hemoglobin 10.7 g/dL (12.9-16.9); Immature Granulocytes % 0.3 % (0-4); Lymphocytes # 1.7 K/mcL (0.6-4.6); Lymphocytes % 21.8 %; Mean Corpuscular HGB Conc 31.7 g/dL (31.6-35.5); Mean Corpuscular Hemoglobin 29.2 pg (28.0-33.3); Mean Corpuscular Volume 92.1 fL (83.0-100.0); Mean Platelet Volume 9.9 fL (9.4-12.4); Monocytes # 0.6 K/mcL (0.0-1.3); Monocytes % 8.4 %; Neutrophils # 4.9 K/mcL (1.6-8.9); Platelet Count 174 K/mcL (140-400); Red Blood Count 3.67 M/mcL (4.19-5.50); Red Cell Distribution Width 16.4 % (11.5-14.5); Segmented Neutrophils % 63.7 %
[2016-11-29 20:50] LABS: Calcium 9.4 mg/dL (8.6-10.8); Potassium 3.9 mEq/L (3.5-4.5)
[2016-11-29] MEDS ORDERED: Furosemide 80 MG in 0.9 % Sodium Chloride 50 ML IVPB ONE (21:07)
--- NOTE | 2016-11-29 21:23 | Emergency Department Note ---
Disposition Clinical Impression: Pleural effusion CHF (congestive heart failure) Qualifiers: Congestive heart failure type: unspecified congestive heart failure type Congestive heart failure chronicity: unspecified congestive heart failure chronicity Qualified Code(s): I50.9 - Heart failure, unspecified Disposition: Admitted As Inpatient Condition: Good [facility]errals: [facility]Primary Care Provider[facility] - Forms: ED Satisfaction Letter Time of Disposition: 21:47 SOB HPI - General Chief Complaint: ED Shortness of Breath/Dyspnea Stated Complaint: states fluid retention, sob Time Seen by Provider: 11/29/16 19:56 Source: patient Mode of arrival: ambulatory Limitations: no limitations Nursing Notes Reviewed: Yes Vital Signs Reviewed: Yes - History of Present Illness Patient presents emergency room from home with complaints of feeling fluid overload and inability to get out urine. He was just discharged from the hospital for congestive heart failure exacerbation. He continues on Lasix as advised without any relief of symptoms. Denies chest pain fevers chills nausea vomiting or diarrhea. Denies abdominal pain or discomfort at this point. No other acute issues noted at this time. Pt Subjective Complaint: shortness of breath Onset (ago): Just [employer] IN[employer] Context: recent illness Severity: mild Consistency/Duration: constant Improves with: rest, upright position Worsens with: lying flat Known history of: congestive heart failure Associated symptoms: Reports: orthopnea Treatment prior to arrival: none Cough present: No Sputum production: No - Related Data Home Medications Medication Instructions Recorded Confirmed Albuterol Sulfate [Albuterol 2 puff IH BID PRN 01/18/16 11/29/16 Inhaler] Allopurinol [Zyloprim 300 MG] 300 mg PO DAILY 01/18/16 11/29/16 Aspirin 162 mg PO DAILY 01/18/16 11/29/16 Calcium Carbonate/Vitamin D3 1 each PO BID 01/18/16 11/25/16 [Calcium 500-Vit D3 200 Caplet] Cholecalciferol (D-3) [Vitamin D] 4,000 unit PO DAILY 01/18/16 11/25/16 Clopidogrel [Plavix] 75 mg PO DAILY 01/18/16 11/25/16 Digoxin [Lanoxin] 0.125 mg PO MOWEFR 01/18/16 11/29/16 Docusate Sodium [Dok] 100 mg PO BID 01/18/16 11/29/16 Ferrous Sulfate 325 mg PO BID 01/18/16 11/29/16 Meclizine HCl [Verticalm] 25 mg PO BID 01/18/16 11/25/16 Nitroglycerin [Nitrostat] 0.4 mg SL Q5M PRN 01/18/16 11/29/16 Pantoprazole Sodium [Protonix] 40 mg PO DAILY 01/18/16 11/29/16 Sennosides [Senna] 8.6 mg PO BID 01/18/16 11/29/16 Betamethasone Dipropionate 1 appl TP TID 11/25/16 11/25/16 Insulin Glargine,Hum.rec.anlog 38 unit SQ QAM 11/25/16 11/29/16 [Lantus Solostar] Ketoconazole 2% CRM [Nizoral Cream] 1 appl TP BID 11/25/16 11/25/16 Lidocaine Patch [Lidoderm 5% patch] 2 each TP DAILY 11/25/16 11/29/16 Metoprolol Succinate 100 mg PO DAILY 11/25/16 11/29/16 Spironolactone [Aldactone] 25 mg PO DAILY 11/25/16 11/29/16 glipiZIDE [Glucotrol] 5 mg PO DAILY 11/25/16 11/29/16 Finasteride [Proscar] 5 mg PO DAILY 11/29/16 11/29/16 Furosemide [Lasix] 60 mg PO BID 11/29/16 11/29/16 HYDROcodone/Acet 5/325 mg [[place] 1 tab PO BID PRN 11/29/16 11/29/16 5-325 mg] Pregabalin [Lyrica] 25 mg PO BID 11/29/16 11/29/16 Spironolactone [Aldactone] 25 mg PO DAILY 11/29/16 11/29/16 Tamsulosin HCl [Flomax] 0.4 mg PO HS 11/29/16 11/29/16 Previous Rx's Medication Instructions Recorded Lisinopril [Zestril] 10 mg PO DAILY #30 tablet 11/27/16 Allergies Allergy/AdvReac Type Severity Reaction Status Date / Time atorvastatin Allergy Anaphylaxis Verified 11/25/16 16:47 rosuvastatin Allergy Anaphylaxis Verified 11/25/16 16:47 All systems ED: reviewed and negative except as stated. Review of Systems: As Per HPI Constitutional: Denies: fever, chills, weakness Cardiovascular: Reports: orthopnea, edema. Denies: chest pain, palpitations, dyspnea on exertion Respiratory: Denies: cough, dyspnea, wheezes, hemoptysis Gastrointestinal: Denies: abdominal pain, nausea, vomiting, diarrhea Genitourinary: Denies: urgency, dysuria, frequency Musculoskeletal: Denies: back pain, neck pain Neurological: Denies: headache Endocrine: Denies: fatigue Past Medical History - Past Medical History Attestation: Yes The following information was validated with the patient. Source: patient Medical history: Reports: diabetes, renal disease, atrial fibrillation, hyperlipidemia, CHF, COPD Surgical history: Reports: pacemaker/AICD Psychiatric history: Reports: other - Social History Smoking Status: Former smoker Smokeless Tobacco Status: No Alcohol use: Reports: none Drug use: Reports: none Physical Exam - General Limitations: no limitations General appearance: alert, in no apparent distress - Head Head exam: atraumatic, normocephalic, normal inspection - Neck Neck exam: Present: normal inspection, full ROM, trachea midline - Chest Chest inspection: Present: normal inspection, symmetric chest wall rise - Respiratory Respiratory exam: Present: normal lung sounds bilaterally - Cardiovascular Cardiovascular exam: Present: regular rate, normal rhythm, normal heart sounds - Abdominal Exam Abdominal exam: Present: soft, Non-Tender, normal bowel sounds. Absent: tenderness, distention, guarding, rebound, rigidity, Fox's sign, Rovsing's sign, tenderness at McBurney's Point - Extremities Exam Extremities exam: Present: normal inspection, full ROM, normal capillary refill , pedal edema. Absent: tenderness - Back Exam Back exam: Present: normal inspection - Neurological Exam Neurological exam: Present: alert, oriented X3, CN II-XII intact, normal gait - Skin Skin exam: Present: warm, dry, intact, normal color Course Course Narrative: Patient seen and examined the time of arrival. See history of present illness. 81-year-old male with known history of congestive heart failure presents today with fluid overload again. Vital signs in presentation are stable patient is afebrile. Patient was just discharged from the hospital the and has been taking his home doses of Lasix without any relief of the symptoms. He has not had any significant urinary output over the last 24 hours. He feels like he is holding onto fluid in his abdomen and in his lower extremities. Patient denies any chest pain fevers chills nausea vomiting or diarrhea. He does have intermittent orthopnea and exertional dyspnea secondary to fluid. Denies any other symptoms at this time. Physical exam is relatively benign at this point. Lungs are clear but there is diminished breath sounds in bilateral lower lung hayes. Heart is regular. Abdomen is soft nontender nondistended he does have normal bowel sounds no guarding no rigidity no peritoneal symptoms. Patient has no reproducible pain or symptoms of the CVA region of the flanks. Patient was brought from his purpose is no acute neurologic deficits. He does have pitting edema in the bilateral lower extremity up to the midcalf. Patient is concerning for fluid overload again at this time is refractory to his outpatient oral medications. Patient will have CT of the abdomen and chest x-ray EKG troponins and BNP kidney function testing and urinalysis ordered this time. Disposition pending treatment course. Obtain a moderator into evaluation of his kidney function is completed prior to giving Lasix or for catheter placement. Bedside ultrasound. Adjust bladder volume at this point he had approximately 170 mL retained urine in his bladder this point. Gaffney catheter to be placed for ease of treatment at this time. Disposition pending treatment course - Reevaluation(s) Reevaluation #1: Patient has elevated BNP at 844. Patient has no elevation in troponin chest x- ray is concerning for right pleural effusion and new left-sided pleural effusion. CT of the abdomen shows liver related issues with possible cirrhosis. No acute pathology noted. Patient otherwise is stable pleural effusions with new pleural effusion left side. Kidney function was evaluated and his kidney function is 2.04 which is baseline. Will dose of IV Lasix to be given down here as well as Gaffney catheter placement. Patient will be admitted for what appears to be refractory congestive heart failure and fluid overload. Hospitalist was paged at this time Time: 21:45 Reevaluation #2: Patient discussed with the hospitalist Dr. munoz. Reviewed the presentation symptoms medical history as well as intervention here in the emergency room. No other concerns or issues noted at this time. Patient is otherwise stable. We will continue to monitor his admission processes is completed. Time: 22:22 Vital Signs Temperature 97.6 F 11/29/16 19:55 Pulse Rate 69 11/29/16 19:55 Respiratory Rate 20 11/29/16 19:55 Blood Pressure 99/63 08/19/17 19:55 O2 Sat by Pulse Oximetry 97 11/29/16 19:55 Temperature 97.6 F 11/29/16 19:55 Pulse Rate 70 11/29/16 21:03 Respiratory Rate 16 11/29/16 21:03 Blood Pressure 102/52 11/29/16 21:03 O2 Sat by Pulse Oximetry 98 11/29/16 21:03 Oxygen Delivery Oxygen Delivery Room Air Shortness of Breath/Dyspnea - MDM Narrative Medical decision making narrative: Congestive heart failure, fluid overload, bilateral pleural effusions - Medical Records Medical records reviewed: Yes I reviewed the patient's medical records. - Lab Data Lab results reviewed: Yes I reviewed the patient's lab results. Result diagrams: 11/29/16 20:27 11/29/16 20:27 Lab Results 11/29/16 11/29/16 11/29/16 Range/Units 20:27 20:27 20:27 WBC 7.6 (4.3-11.1) K/mcL RBC 3.67 L (4.19-5.50) M/mcL Hgb 10.7 L (12.9-16.9) g/dL Hct 33.8 L (37.5-50.1) % MCV 92.1 (83.0-100.0) fL MCH 29.2 (28.0-33.3) pg MCHC 31.7 (31.6-35.5) g/dL RDW 16.4 H (11.5-14.5) % Plt Count 174 (140-400) K/mcL MPV 9.9 (9.4-12.4) fL Immature Gran % 0.3 (0-4) % Seg Neutrophils % 63.7 % Lymphocytes % 21.8 % Monocytes % 8.4 % Eosinophils % 5.3 % Basophils % 0.5 % Neutrophils # 4.9 (1.6-8.9) K/mcL Lymphocytes # 1.7 (0.6-4.6) K/mcL Monocytes # 0.6 (0.0-1.3) K/mcL Eosinophils # 0.4 (0.0-0.6) K/mcL Basophils # 0.0 (0.0-0.2) K/mcL Sodium 141 (136-145) mEq/L Potassium 3.9 (3.5-4.5) mEq/L Chloride 104 (98-109) mEq/L Carbon Dioxide 28 (19-29) mEq/L BUN 38 H (8-26) mg/dL Creatinine 2.04 H (0.72-1.25) mg/dL Est GFR ( Amer) 38 L (> 60) Est GFR (Non-Af Amer) 32 L (> 60) BUN/Creatinine Ratio 19 (6-26) Glucose 173 H (70-99) mg/dL Calculated Osmolality 305 H (280-300) Calcium 9.4 (8.6-10.8) mg/dL Troponin I 0.02 (0-0.03) ng/mL B-Natriuretic Peptide (0-100) pg/mL 11/29/16 Range/Units 20:27 WBC (4.3-11.1) K/mcL RBC (4.19-5.50) M/mcL Hgb (12.9-16.9) g/dL Hct (37.5-50.1) % MCV (83.0-100.0) fL MCH (28.0-33.3) pg MCHC (31.6-35.5) g/dL RDW (11.5-14.5) % Plt Count (140-400) K/mcL MPV (9.4-12.4) fL Immature Gran % (0-4) % Seg Neutrophils % % Lymphocytes % % Monocytes % % Eosinophils % % Basophils % % Neutrophils # (1.6-8.9) K/mcL Lymphocytes # (0.6-4.6) K/mcL Monocytes # (0.0-1.3) K/mcL Eosinophils # (0.0-0.6) K/mcL Basophils # (0.0-0.2) K/mcL Sodium (136-145) mEq/L Potassium (3.5-4.5) mEq/L Chloride (98-109) mEq/L Carbon Dioxide (19-29) mEq/L BUN (8-26) mg/dL Creatinine (0.72-1.25) mg/dL Est GFR ( Amer) (> 60) Est GFR (Non-Af Amer) (> 60) BUN/Creatinine Ratio (6-26) Glucose (70-99) mg/dL Calculated Osmolality (280-300) Calcium (8.6-10.8) mg/dL Troponin I (0-0.03) ng/mL B-Natriuretic Peptide 844 H (0-100) pg/mL - Radiology Data Radiology results reviewed: Yes I reviewed the patient's radiology results. CT of the abdomen does not show any acute pathology C documented radiology report. Chest x-ray shows resolving right-sided pleural effusion with new left- sided pleural effusion - EKG Data EKG attestation: Yes I reviewed and interpreted this EKG. EKG shows normal: Reports: sinus rhythm (Ventricularly paced rhythm and no acute changes in comparison to EKG performed on 11/28/16)
[2016-11-30 02:51] LABS: Bilirubin,Urine Negative (Negative); Blood,Urine Large (Negative); Clarity,Urine Cloudy (Clear); Color,Urine Red (Yellow); Glucose,Urine (UA) Normal (Normal); Ketones,Urine Trace mg/dL (Negative); Leukocyte Esterase,Urine Small (Negative); Nitrite,Urine Negative (Negative); PH,Urine 6.5 pH Units (5.0-8.0); Protein,Urine 30 mg/dL (Neg-Trace); Specific Gravity,Urine 1.014 (1.010-1.025); Urobilinogen,Urine Normal (Normal)
[2016-11-30 02:53] LABS: Bacteria,Urine None Seen per hpf (None-Few); RBC,Urine TNTC per hpf (0-3); Squamous Epithelial Cell,Urine Many per lpf (None-Few)
[2016-11-30 03:02] LABS: Hyaline Casts,Urine None Seen per lpf (None-Few)
[2016-11-30] MEDS ORDERED: Acetaminophen 325 MG TABLET PO PRN (03:09)
[2016-11-30] MEDS ORDERED: Ondansetron 4 MG/2 ML VIAL IVP PRN (03:09)
[2016-11-30] MEDS ORDERED: Naloxone 0.4 MG/ML INJ IVP PRN (03:09)
[2016-11-30] MEDS ORDERED: Nitroglycerin 0.4 MG TAB.SUBL SL PRN (03:13)
--- NOTE | 2016-11-30 03:28 | Internal Med History&Physical ---
Date of Encounter: 11/30/16 Time of Encounter: 02:45 Assessment and Plan (1) CHF (congestive heart failure) Current visit: Yes Status: Acute 1. Will start on Lasix drip and monitor I/O closely. 2. Fluid restriction. 3. ECHO last admission confirmed LVEF 30%. 4. Continue home meds as appropriate. Qualifiers: Congestive heart failure type: systolic Congestive heart failure chronicity : acute on chronic Qualified Code(s): I50.23 - Acute on chronic systolic ( congestive) heart failure (2) Obstructive uropathy Current visit: Yes Status: Acute 1. Likely due to BPH. 2. Obstruction relieved by Gaffney. 3. Consult urology and monitor I/O. 4. Monitor renal function. May need IVF and cessation of Lasix drip if he develops aggressive post-obstructive diuresis. However, he did not have massive urine output with Gaffney placement. (3) CKD (chronic kidney disease) stage 3, GFR 30-59 ml/min Current visit: No Status: Chronic 1. Creatinine appears to be at baseline. 2. Monitor renal function and consult nephrology is any significant change. 3. Avoid nephrotoxins and MARLO at this time. (4) IDDM (insulin dependent diabetes mellitus) Current visit: No Status: Chronic 1. Continue home Lantus and SSI. 2. Monitor and adjust dosing as needed. (5) DVT prophylaxis Current visit: No Status: Acute 1. Heparin SQ. Internal Medicine - H&P: HPI Chief complaint: SOB, CHF, unable to urinate Admitted From: Emergency Dept Plans for Post Hospital Care: Home History of present illness: Mr. Krishna is a 81 year old male who was just hospitalized several days ago for congestive heart failure. He was treated with diuretic therapy and fluid restriction and improved significantly. He was discharged 3 days ago and was doing well at home. However, over the last 24 hours, he had difficulty urinating and then stopped urinating yesterday. Subsequently, he developed increasing low extremity edema, increasing shortness of breath, and an inability to void. He therefore came to the ER and was treated for and diagnosed with CHF. He did undergo CT of the abdomen and pelvis which showed some cirrhotic findings of his liver. A Gaffney catheter was placed due to inability to void. Bladder scan was performed prior to that and showed he had about 170 mL of urine in the bladder with inability to void. Upon my assessment of the patient, he denies any chest pain, but he is a little short of breath. He has been much more edematous than the other day when I admitted him several days ago. He denies any history of prostate problems. However, he is on 2 different medications for BPH. I suspect his inability to void is likely due to obstructive uropathy from prostate issues. As such, we will keep the Gaffney catheter in place and consult urology in the morning. He denies any dysuria, fever, chills, or night sweats. Past Med Surg Social Fam HX - Past Medical History Attestation: Yes The following information was validated with the patient. Source: patient, old records reviewed Medical history: atrial fibrillation, CHF (LVEF 30% on ECHO 11/26/16), COPD, diabetes, hyperlipidemia, renal disease Psychiatric history: no psych history - Past Surgical History Surgical History: pacemaker/AICD - Social History Smoking Status: Former smoker Smokeless Tobacco Status: No Alcohol use: none Drug use: none - Family History Mother Living Status: Hx Family Cardiac Disorders: Yes (CVA) Hx Family Respiratory Disorders: No Hx Family Cancer: No Hx Family GI Disorders: No Hx Family Endocrine Disorder: No Hx Family Neuromuscular Disorders: No Hx Family Neurologic Disorders: No Hx Family HEENT Disorders: No Hx Family Autoimmune Disorders: No Father Living Status: Hx Family Cardiac Disorders: Yes Brother Hx Family Cardiac Disorders: No Hx Family Respiratory Disorders: No Hx Family Cancer: Yes (Pancreatic) Hx Family GI Disorders: No Hx Family Endocrine Disorder: No Hx Family Neuromuscular Disorders: No Hx Family Neurologic Disorders: No Hx Family HEENT Disorders: No Hx Family Autoimmune Disorders: No Internal Medicine - H&P: Meds Albuterol Sulfate [Albuterol Inhaler] 2 puff IH BID PRN 01/18/16 [History] Allopurinol [Zyloprim 300 MG] 300 mg PO DAILY 01/18/16 [History] Aspirin 162 mg PO DAILY 01/18/16 [History] Calcium Carbonate/Vitamin D3 [Calcium 500-Vit D3 200 Caplet] 1 each PO BID 01/17 [History] Cholecalciferol (D-3) [Vitamin D] 4,000 unit PO DAILY 01/18/16 [History] Clopidogrel [Plavix] 75 mg PO DAILY 01/18/16 [History] Digoxin [Lanoxin] 0.125 mg PO MOWEFR 01/18/16 [History] Docusate Sodium [Dok] 100 mg PO BID 01/18/16 [History] Ferrous Sulfate 325 mg PO BID 01/18/16 [History] Meclizine HCl [Verticalm] 25 mg PO BID 01/18/16 [History] Nitroglycerin [Nitrostat] 0.4 mg SL Q5M PRN 01/18/16 [History] Pantoprazole Sodium [Protonix] 40 mg PO DAILY 01/18/16 [History] Sennosides [Senna] 8.6 mg PO BID 01/18/16 [History] Betamethasone Dipropionate 1 appl TP TID 11/25/16 [History] Insulin Glargine,Hum.rec.anlog [Lantus Solostar] 38 unit SQ QAM 11/25/16 [ History] Ketoconazole 2% CRM [Nizoral Cream] 1 appl TP BID 11/25/16 [History] Lidocaine Patch [Lidoderm 5% patch] 2 each TP DAILY 11/25/16 [History] Metoprolol Succinate 100 mg PO DAILY 11/25/16 [History] Spironolactone [Aldactone] 25 mg PO DAILY 11/25/16 [History] glipiZIDE [Glucotrol] 5 mg PO DAILY 11/25/16 [History] Lisinopril [Zestril] 10 mg PO DAILY #30 tablet 11/27/16 [Rx] Finasteride [Proscar] 5 mg PO DAILY 11/29/16 [History] Furosemide [Lasix] 60 mg PO BID 11/29/16 [History] HYDROcodone/Acet 5/325 mg [[place] 5-325 mg] 1 tab PO BID PRN 11/29/16 [History] Pregabalin [Lyrica] 25 mg PO BID 11/29/16 [History] Spironolactone [Aldactone] 25 mg PO DAILY 11/29/16 [History] Tamsulosin HCl [Flomax] 0.4 mg PO HS 11/29/16 [History] 3 Allergy/AdvReac Type Severity Reaction Status Date / Time atorvastatin Allergy Anaphylaxis Verified 11/25/16 16:47 rosuvastatin Allergy Anaphylaxis Verified 11/25/16 16:47 - Constitutional Constitutional: weight gain, no chills, no fever(s), no night sweats - EENT Eyes: no blurry vision, no change in vision Ears: no ear pain, no tinnitus Nose, mouth and throat: no nasal congestion, no nasal discharge, no sore throat - Cardiovascular Cardiovascular ROS IM: dyspnea, dyspnea on exertion, edema, paroxysmal nocturnal dyspnea, no chest pain - Respiratory Respiratory: dyspnea, dyspnea on exertion, no cough, no hemoptysis, no wheezing , no chest congestion, no change in phlegm color - Gastrointestinal Gastrointestinal: no abdominal pain, no diarrhea, no hematemesis, no hematochezia, no melena, no nausea, no vomiting - Genitourinary Genitourinary ROS male: difficulty urinating, no dysuria, no flank pain, no hematuria - Musculoskeletal Musculoskeletal ROS IM: no arthralgias, no back pain - Integumentary Integumentary IM: no erythema, no rash - Neurological Neurological ROS: no dizziness, no focal weakness, no frequent falls, no headache(s) - Psychiatric Psychiatric: no anxiety, no depression - Endocrine Endocrine IM: no polydipsia, no polyuria - Allergic/Immunologic Allergic/Immunologic: no GI upset with certain foods - Constitutional Vitals: Temp Pulse Resp BP Pulse Ox 97.8 F 69 16 95/51 99 11/30/16 00:01 11/30/16 00:01 11/30/16 00:01 11/30/16 00:01 11/30/16 00:01 General appearance: Present: cooperative, mild distress, A&O X 3, pleasant, answers questions appropriately - Head Head exam: Present: atraumatic, normal inspection - Eye Eye exam: Present: EOMI, normal appearance, PERRL. Absent: scleral icterus Pupils: Present: normal accommodation - ENT ENT exam: Present: mucous membranes dry, normal exam - Neck Neck exam general surgery: Present: full ROM, supple. Absent: lymphadenopathy, tenderness - Expanded Neck Exam Neck exam: Absent: carotid bruit - Respiratory Respiratory exam: Present: rales (bibasilar ), respiratory distress, rhonchi. Absent: wheezes - Cardiovascular Cardiovascular exam: Present: distant heart sounds, RRR, +S1, +S2. Absent: diastolic murmur, systolic murmur Additional comments: palpable pacer left upper chest - GI/Abdominal GI/Abdominal exam: Present: distended, normal bowel sounds, soft. Absent: hepatomegaly, mass, splenomegaly, tenderness Additional comments: fluid wave on palpation and percussion of abdomen - Extremities Exam Extremities exam: Present: full ROM, normal capillary refill, pedal edema (3-4+) , radial pulses palpable and symmetrical. Absent: calf tenderness, joint swelling - Back Exam Back exam: Present: normal inspection. Absent: CVA tenderness (L), CVA tenderness (R) - Neurological Exam Neurological exam: Present: alert, CN II-XII intact, oriented X3, no focal deficits - Psychiatric Psychiatric exam: Present: normal affect, normal mood - Skin Skin exam: Present: dry, warm. Absent: rash Internal Med - H&P Results - Labs CBC & Chem 7: 11/29/16 20:27 11/29/16 20:27 Labs: Urine 11/30/16 Range/Units 02:40 Urine Color Red A (Yellow) Urine Clarity Cloudy A (Clear) Urine pH 6.5 (5.0-8.0) pH Units Ur Specific [place] 1.014 (1.010-1.025) Urine Protein 30 H (Neg-Trace) mg/dL Urine Glucose (UA) Normal (Normal) mg/dL - EKG Data -: EKG Interpreted by Myself - EKG Data Prior EKG available for review: yes When compared to previous EKG: there is no significant change EKG comments: 11/30/16 03:37 Ventricular paced rhythm - Diagnostic Studies Chest x-ray Status: image reviewed by me (CHF findings and right pleural effusion)
[2016-11-30 04:07] LABS: Basophils % 0.5 %; Eosinophils # 0.5 K/mcL (0.0-0.6); Eosinophils % 5.5 %; Hematocrit 33.5 % (37.5-50.1); Hemoglobin 10.6 g/dL (12.9-16.9); Immature Granulocytes % 0.1 % (0-4); Lymphocytes # 2.6 K/mcL (0.6-4.6); Lymphocytes % 31.2 %; Mean Corpuscular HGB Conc 31.6 g/dL (31.6-35.5); Mean Corpuscular Hemoglobin 29.1 pg (28.0-33.3); Mean Platelet Volume 10.1 fL (9.4-12.4); Monocytes # 0.8 K/mcL (0.0-1.3); Monocytes % 9.6 %; Neutrophils # 4.5 K/mcL (1.6-8.9); Platelet Count 169 K/mcL (140-400); Red Blood Count 3.64 M/mcL (4.19-5.50); Red Cell Distribution Width 16.6 % (11.5-14.5); Segmented Neutrophils % 53.1 %
[2016-11-30] MEDS: Furosemide 240 MG in D5% in Water 96 ML IVC SCH (04:09)
[2016-11-30 04:14] LABS: INR 1.1; Prothrombin Time 12.2 Seconds (9.4-12.1)
[2016-11-30 04:16] LABS: Activated Partial Thrombo Time 29.3 Seconds (26.0-36.0)
[2016-11-30 04:25] LABS: Albumin 2.8 g/dL (3.5-5.0); Albumin/Globulin Ratio 0.9 (1.1-2.2); Bilirubin,Total 0.5 mg/dL (0.2-1.2); Calcium 9.1 mg/dL (8.6-10.8); Chol/HDL Ratio 4.9 (0-4.9); Globulin 3.1 g/dL (2.4-3.5); Magnesium 2.3 mg/dL (1.6-2.6); Potassium 3.5 mEq/L (3.5-4.5); Total Protein 5.9 g/dL (6.0-8.3)
[2016-11-30] MEDS: *HR* Heparin 5,000 UNIT/ML VIAL SQ SCH ×2 (05:39→16:59)
[2016-11-30] MEDS: Spironolactone 25 MG TABLET PO SCH (09:40)
[2016-11-30] MEDS: Aspirin 81 MG TAB.CHEW PO SCH (09:40)
[2016-11-30] MEDS: Sennosides 8.6 MG TABLET PO SCH ×2 (09:41→19:44)
[2016-11-30] MEDS: Pregabalin 25 MG CAPSULE PO SCH ×2 (09:41→19:44)
[2016-11-30] MEDS: Metoprolol XL (24 HR) Succ 50 MG TAB.ER.24H PO SCH (09:41)
[2016-11-30] MEDS: Finasteride 5 MG TABLET PO SCH (09:41)
[2016-11-30] MEDS: Insulin DETEMIR 100 UNIT/ML X5UNITS SQ SCH (09:44)
--- NOTE | 2016-11-30 09:46 | Urology - Consult Note ---
Date of Encounter: 11/30/16 Time of Encounter: 09:44 - Assessment and Plan (1) BPH NOS w ur obs/LUTS Current Visit: Yes Status: Acute Assessment and plan: 81-year-old gentleman with a history of BPH. He had some difficulty urinating before admission. A catheter has been placed. Urine is somewhat bloody. There is no bladder distention on his CT there is no hydronephrosis. I think it is more likely that he wasn't producing a lot of urine rather than being in complete retention. Nevertheless, I would continue the catheter as he has some hematuria to allow the bleeding to resolve. we'll continue to follow along. He is currently taking tamsulosin 0.4 mg daily for his BPH. If his urine clears , we can consider catheter removal and see if he can void. Alternatively, he can follow up in urology clinic in 1 week for voiding trial (2) Hematuria Current Visit: Yes Status: Acute Assessment and plan: The nurses can hand irrigate as needed. The hematuria should resolve. If it doesn't improve, we can consider changing his catheter for a three-way catheter and starting him on bladder irrigation. Qualifiers: Qualified Code(s): R31.0 - Gross hematuria Urology CN:HPI Consult date: 11/30/16 Reason for consult Urology: Difficult Gaffney Requesting physician: Watson Sheppard History of present illness: A 81-year-old gentleman with a history of congestive heart failure returns with a repeat congestive heart failure exacerbation. He reported some difficulty urinating. A CT scan was performed which showed bilateral pleural effusions. He had no evidence of hydronephrosis. The bladder was not particularly distended. Prostate is enlarged. A catheter was placed. Urine has been somewhat bloody. He says he has trouble getting his stream started and emptying his bladder. Past Med Surg Social Fam HX - Past Medical History Medical history: atrial fibrillation, CHF (LVEF 30% on ECHO 11/26/16), COPD, diabetes, hyperlipidemia, renal disease Psychiatric history: no psych history - Past Surgical History Surgical History: pacemaker/AICD - Social History Smoking Status: Former smoker Smokeless Tobacco Status: No Alcohol use: none Drug use: none - Family History Mother Living Status: Hx Family Cardiac Disorders: Yes (CVA) Hx Family Respiratory Disorders: No Hx Family Cancer: No Hx Family GI Disorders: No Hx Family Endocrine Disorder: No Hx Family Neuromuscular Disorders: No Hx Family Neurologic Disorders: No Hx Family HEENT Disorders: No Hx Family Autoimmune Disorders: No Father Living Status: Hx Family Cardiac Disorders: Yes Brother Hx Family Cardiac Disorders: No Hx Family Respiratory Disorders: No Hx Family Cancer: Yes (Pancreatic) Hx Family GI Disorders: No Hx Family Endocrine Disorder: No Hx Family Neuromuscular Disorders: No Hx Family Neurologic Disorders: No Hx Family HEENT Disorders: No Hx Family Autoimmune Disorders: No Medications and Allergies Albuterol Sulfate [Albuterol Inhaler] 2 puff IH BID PRN 01/18/16 [History] Allopurinol [Zyloprim 300 MG] 300 mg PO DAILY 01/18/16 [History] Aspirin 162 mg PO DAILY 01/18/16 [History] Calcium Carbonate/Vitamin D3 [Calcium 500-Vit D3 200 Caplet] 1 each PO BID 01/17 [History] Cholecalciferol (D-3) [Vitamin D] 4,000 unit PO DAILY 01/18/16 [History] Clopidogrel [Plavix] 75 mg PO DAILY 01/18/16 [History] Digoxin [Lanoxin] 0.125 mg PO MOWEFR 01/18/16 [History] Docusate Sodium [Dok] 100 mg PO BID 01/18/16 [History] Ferrous Sulfate 325 mg PO BID 01/18/16 [History] Meclizine HCl [Verticalm] 25 mg PO BID 01/18/16 [History] Nitroglycerin [Nitrostat] 0.4 mg SL Q5M PRN 01/18/16 [History] Pantoprazole Sodium [Protonix] 40 mg PO DAILY 01/18/16 [History] Sennosides [Senna] 8.6 mg PO BID 01/18/16 [History] Betamethasone Dipropionate 1 appl TP TID 11/25/16 [History] Insulin Glargine,Hum.rec.anlog [Lantus Solostar] 38 unit SQ QAM 11/25/16 [ History] Ketoconazole 2% CRM [Nizoral Cream] 1 appl TP BID 11/25/16 [History] Lidocaine Patch [Lidoderm 5% patch] 2 each TP DAILY 11/25/16 [History] Metoprolol Succinate 100 mg PO DAILY 11/25/16 [History] Spironolactone [Aldactone] 25 mg PO DAILY 11/25/16 [History] glipiZIDE [Glucotrol] 5 mg PO DAILY 11/25/16 [History] Lisinopril [Zestril] 10 mg PO DAILY #30 tablet 11/27/16 [Rx] Finasteride [Proscar] 5 mg PO DAILY 11/29/16 [History] Furosemide [Lasix] 60 mg PO BID 11/29/16 [History] HYDROcodone/Acet 5/325 mg [[place] 5-325 mg] 1 tab PO BID PRN 11/29/16 [History] Pregabalin [Lyrica] 25 mg PO BID 11/29/16 [History] Spironolactone [Aldactone] 25 mg PO DAILY 11/29/16 [History] Tamsulosin HCl [Flomax] 0.4 mg PO HS 11/29/16 [History] 3 Allergy/AdvReac Type Severity Reaction Status Date / Time atorvastatin Allergy Anaphylaxis Verified 11/25/16 16:47 rosuvastatin Allergy Anaphylaxis Verified 11/25/16 16:47 Review of Systems - Constitutional no chills, no fever(s) - EENT Nose, mouth and throat: no dizziness - Cardiovascular no chest pain - Respiratory no dyspnea - Gastrointestinal no nausea, no vomiting - Genitourinary difficulty urinating, hematuria, no flank pain - Musculoskeletal no back pain - Integumentary no erythema, no rash - Neurological no weakness - Psychiatric no suicidal ideation - Hematologic/Lymphatic no easy bleeding - Allergic/Immunologic no wheezing Exam Initial Vital Signs Temp Pulse Resp BP Pulse Ox 97.6 F 69 20 99/63 97 11/29/16 19:55 11/29/16 19:55 11/29/16 19:55 11/29/16 19:55 11/29/16 19:55 - General physical appearance Present: well developed, well nourished, no distress - Eyes Absent: icteric - ENT Present: normal nares - Neck Present: trachea midline - Respiratory Present: normal respiratory effort - Cardiovascular Cardiovascular exam IM: RRR - Abdomen Abdomen: Present: soft - Integumentary Present: no rash Urology Results - Labs 11/30/16 03:52 11/30/16 03:52 Abnormal lab results RBC 3.64 M/mcL (4.19-5.50) L 11/30/16 03:52 Hgb 10.6 g/dL (12.9-16.9) L 11/30/16 03:52 Hct 33.5 % (37.5-50.1) L 11/30/16 03:52 RDW 16.6 % (11.5-14.5) H 11/30/16 03:52 PT 12.2 Seconds (9.4-12.1) H 11/30/16 03:52 BUN 38 mg/dL (8-26) H 11/30/16 03:52 Creatinine 1.95 mg/dL (0.72-1.25) H 11/30/16 03:52 Est GFR ( Amer) 40 (> 60) L 11/30/16 03:52 Est GFR (Non-Af Amer) 33 (> 60) L 11/30/16 03:52 Glucose 51 mg/dL (70-99) L 11/30/16 03:52 Calculated Osmolality 302 (280-300) H 11/30/16 03:52 B-Natriuretic Peptide 844 pg/mL (0-100) H 11/29/16 20:27 Serum Total Protein 5.9 g/dL (6.0-8.3) L 11/30/16 03:52 Albumin 2.8 g/dL (3.5-5.0) L 11/30/16 03:52 Albumin/Globulin Ratio 0.9 (1.1-2.2) L 11/30/16 03:52 LDL Cholesterol, Calc 112 mg/dL (0-99) H 11/30/16 03:52 HDL Cholesterol 32 mg/dL (40-59) L 11/30/16 03:52 Urine Color Red (Yellow) A 11/30/16 02:40 Urine Clarity Cloudy (Clear) A 11/30/16 02:40 Urine Protein 30 mg/dL (Neg-Trace) H 11/30/16 02:40 Urine Ketones Trace mg/dL (Negative) H 11/30/16 02:40 Urine Blood Large (Negative) H 11/30/16 02:40 Ur Leukocyte Esterase Small (Negative) H 11/30/16 02:40 Urine Microscopic RBC TNTC per hpf (0-3) H 11/30/16 02:40 Urine Microscopic WBC 5-15 per hpf (0-3) H 11/30/16 02:40 Ur Squamous Epith Cells Many per lpf (None-Few) H 11/30/16 02:40 Ur Culture Indicated? YES (NO) A 11/30/16 02:40 Diabetes panel 11/30/16 Range/Units 03:52 Sodium 143 (136-145) mEq/L Potassium 3.5 (3.5-4.5) mEq/L Chloride 106 (98-109) mEq/L Carbon Dioxide 29 (19-29) mEq/L BUN 38 H (8-26) mg/dL Creatinine 1.95 H (0.72-1.25) mg/dL Glucose 51 L (70-99) mg/dL Calcium 9.1 (8.6-10.8) mg/dL AST 27 (5-34) Units/L ALT 18 (0-55) Units/L Alkaline Phosphatase 91 (38-126) Units/L Albumin 2.8 L (3.5-5.0) g/dL Triglycerides 67 (< 150) mg/dL HDL Cholesterol 32 L (40-59) mg/dL Calcium panel 11/30/16 Range/Units 03:52 Calcium 9.1 (8.6-10.8) mg/dL Albumin 2.8 L (3.5-5.0) g/dL Pituitary panel 11/30/16 Range/Units 03:52 Sodium 143 (136-145) mEq/L Potassium 3.5 (3.5-4.5) mEq/L Chloride 106 (98-109) mEq/L Carbon Dioxide 29 (19-29) mEq/L BUN 38 H (8-26) mg/dL Creatinine 1.95 H (0.72-1.25) mg/dL Glucose 51 L (70-99) mg/dL Calcium 9.1 (8.6-10.8) mg/dL Adrenal panel 11/30/16 Range/Units 03:52 Sodium 143 (136-145) mEq/L Potassium 3.5 (3.5-4.5) mEq/L Chloride 106 (98-109) mEq/L Carbon Dioxide 29 (19-29) mEq/L BUN 38 H (8-26) mg/dL Creatinine 1.95 H (0.72-1.25) mg/dL Glucose 51 L (70-99) mg/dL Calcium 9.1 (8.6-10.8) mg/dL Total Bilirubin 0.5 (0.2-1.2) mg/dL AST 27 (5-34) Units/L ALT 18 (0-55) Units/L Alkaline Phosphatase 91 (38-126) Units/L Albumin 2.8 L (3.5-5.0) g/dL All other labs normal. - Imaging CT scan - abdomen: report reviewed, image reviewed CT scan - pelvis: report reviewed, image reviewed Consult Discharge Plan - Plan [facility]errals: [facility] [Primary Care Provider] -
--- NOTE | 2016-11-30 13:09 | Internal Med Progress Note ---
Date of Encounter: 11/30/16 Time of Encounter: 09:10 - Assessment and plan (1) CHF (congestive heart failure) Current Visit: Yes Status: Acute Assessment and plan: Acute exacerbation of chronic CHF systolic dysfunction LVEF 30% Continue Lasix drip, fluid restriction, strict I's and O's, daily weight, cardiac telemetry Continue aspirin, digoxin, metoprolol, Aldactone EKG - paced rhythm Troponin - 0.02 BN peptide - 844 Chest x-ray - persistent findings suggestive of edema with small right-sided effusion and mild bibasilar airspace disease CT abdomen and pelvis - moderate right and small left pleural effusion, cirrhotic-appearing liver, small amount of ascites, enlarged prostate, gallbladder wall appears thickened Echocardiogram - LVEF 30%, severe global and regional LV systolic dysfunction, mild to moderately dilated LV, RV normal size with moderate reduction in function, moderate TR and MR Continue to monitor closely, labs in a.m., patient will need follow-up with his presentation manager as outpatient Qualifiers: Congestive heart failure type: systolic Congestive heart failure chronicity : acute on chronic Qualified Code(s): I50.23 - Acute on chronic systolic ( congestive) heart failure (2) Obstructive uropathy Current Visit: Yes Status: Acute Assessment and plan: BPH - causing obstructive uropathy and urinary retention - symptoms improving Gaffney catheter in place, with mild hematuria CT abdomen and pelvis - reviewed Urology consult - recommendations reviewed, patient improved Continue Flomax 0.4 mg (3) CKD (chronic kidney disease) stage 3, GFR 30-59 ml/min Current Visit: No Status: Chronic Assessment and plan: Chronic kidney disease stage III - GFR and creatinine appear to be at baseline Monitor renal function closely, consult nephrology if patient develops acute kidney injury Avoid nephrotoxins (4) IDDM (insulin dependent diabetes mellitus) Current Visit: No Status: Chronic Assessment and plan: Diabetes mellitus type 2, insulin-dependent, hyperglycemia Continue Levemir, sliding scale insulin and glucose checks (5) COPD (chronic obstructive pulmonary disease) Current Visit: No Status: Chronic Assessment and plan: Stable, not in exacerbation Qualifiers: COPD type: emphysema Emphysema type: unspecified Qualified Code(s): J43.9 - Emphysema, unspecified (6) DVT prophylaxis Current Visit: No Status: Acute Assessment and plan: Continue heparin subcutaneous - Time Spent With Patient 25 - 35 minutes - Subjective Interval history: Examined this morning. Patient is awake and alert. Not in any distress. Denies chest pain or shortness of breath. Feels better now. No fever. Hemodynamically stable. No other acute events or complaints. Admitted for CHF exacerbation and obstructive uropathy likely due to BPH. IV Lasix drip continued. Gaffney catheter in place. Urology has evaluated the patient. - Constitutional Vitals: Temp Pulse Resp BP Pulse Ox 98.0 F 94 16 105/61 99 11/30/16 12:16 11/30/16 12:16 11/30/16 12:16 11/30/16 12:16 11/30/16 12:16 General appearance: Present: cooperative, mild distress, A&O X 3, pleasant, answers questions appropriately - Head Head exam: Present: atraumatic - Eye Eye exam: Present: EOMI - ENT ENT exam: Present: mucous membranes moist - Respiratory Respiratory exam: Present: decreased breath sounds (Slightly decreased in both bases), rales (Mild bilateral). Absent: accessory muscle use, rhonchi, wheezes , tachypnea - Cardiovascular Cardiovascular exam: Present: RRR, +S1, +S2, systolic murmur - GI/Abdominal GI/Abdominal exam: Present: distended, soft, no peritoneal signs. Absent: firm , guarding, tenderness Additional comments: Probable mild ascites present - Extremities Exam Extremities exam: Present: pedal edema (Bilateral lower leg 3+ pitting edema), radial pulses palpable and symmetrical. Absent: cyanotic - Neurological Exam Neurological exam: Present: alert, oriented X3, no focal deficits. Absent: facial droop, speech deficit Internal Medicine: Result - Labs CBC & Chem 7: 11/30/16 03:52 11/30/16 03:52 Labs: Short CBC 11/30/16 Range/Units 03:52 WBC 8.4 (4.3-11.1) K/mcL Hgb 10.6 L (12.9-16.9) g/dL Hct 33.5 L (37.5-50.1) % Plt Count 169 (140-400) K/mcL Neutrophils # 4.5 (1.6-8.9) K/mcL BMP 11/30/16 03:52 Sodium 143 Potassium 3.5 Chloride 106 Carbon Dioxide 29 BUN 38 H Creatinine 1.95 H Glucose 51 L Calcium 9.1 Liver Function 11/30/16 Range/Units 03:52 Total Bilirubin 0.5 (0.2-1.2) mg/dL AST 27 (5-34) Units/L ALT 18 (0-55) Units/L Alkaline Phosphatase 91 (38-126) Units/L Albumin 2.8 L (3.5-5.0) g/dL Urine 11/30/16 Range/Units 02:40 Urine Color Red A (Yellow) Urine Clarity Cloudy A (Clear) Urine pH 6.5 (5.0-8.0) pH Units Ur Specific [place] 1.014 (1.010-1.025) Urine Protein 30 H (Neg-Trace) mg/dL Urine Glucose (UA) Normal (Normal) mg/dL - ABG Interpretation ABG results: PT/INR, D-dimer PT 12.2 Seconds (9.4-12.1) H 11/30/16 03:52 Consult Discharge Plan - Plan Referrals: [facility] [Primary Care Provider] -
[2016-11-30] MEDS: *HR* HYDROcodone/Acet 5/325 mg TABLET PO PRN ×2 (14:16→22:17)
--- NOTE | 2016-11-30 18:10 | Electrocardiograph Report ---
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
--- NOTE | 2016-11-30 18:21 | Electrocardiograph Report ---
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
[2016-12-01] MEDS: Furosemide 240 MG in D5% in Water 96 ML IVC SCH (02:50)
[2016-12-01] MEDS ORDERED: Lidocaine Jelly 11 ml Syringe MM ONE (04:24)
[2016-12-01] MEDS: *HR* Morphine 2 MG/ML SYRINGE IVP PRN ×2 (04:35→14:14)
[2016-12-01 04:52] LABS: Basophils % 0.5 %; Calcium 9.3 mg/dL (8.6-10.8); Eosinophils # 0.5 K/mcL (0.0-0.6); Eosinophils % 5.3 %; Hematocrit 33.7 % (37.5-50.1); Hemoglobin 10.6 g/dL (12.9-16.9); Immature Granulocytes % 0.4 % (0-4); Lymphocytes # 1.9 K/mcL (0.6-4.6); Lymphocytes % 22.7 %; Mean Corpuscular HGB Conc 31.5 g/dL (31.6-35.5); Mean Corpuscular Hemoglobin 29.3 pg (28.0-33.3); Mean Corpuscular Volume 93.1 fL (83.0-100.0); Mean Platelet Volume 10.5 fL (9.4-12.4); Monocytes # 0.8 K/mcL (0.0-1.3); Monocytes % 8.9 %; Neutrophils # 5.3 K/mcL (1.6-8.9); Platelet Count 168 K/mcL (140-400); Potassium 3.9 mEq/L (3.5-4.5); Red Blood Count 3.62 M/mcL (4.19-5.50); Red Cell Distribution Width 16.8 % (11.5-14.5); Segmented Neutrophils % 62.2 %
[2016-12-01] MEDS: *HR* Heparin 5,000 UNIT/ML VIAL SQ SCH ×2 (05:32→18:26)
--- NOTE | 2016-12-01 07:52 | Urology Progress Note ---
Date of Encounter: 12/01/16 Time of Encounter: 07:50 - Assessment and Plan (1) BPH NOS w ur obs/LUTS Current Visit: Yes Status: Acute Assessment and plan: 81-year-old man with a history of BPH. He has an indwelling 18 [place] catheter. I would recommend continue this for another few days in order to allow the bleeding to completely resolved. She will continue to follow along. (2) Hematuria Current Visit: Yes Status: Acute Assessment and plan: Hematuria is improving with replacement of his catheter. We will monitor for now. Qualifiers: Qualified Code(s): R31.0 - Gross hematuria Progress Note Narrative: 81-year-old man with a history of CHF. Overnight his catheter came out and he had some bleeding. The nurses were eventually able to place an 18 [place] coude tipped catheter. He says he is doing well. His urine is clear today. Objective Initial Vital Signs Temp Pulse Resp BP Pulse Ox 97.6 F 69 20 99/63 97 11/29/16 19:55 11/29/16 19:55 11/29/16 19:55 11/29/16 19:55 11/29/16 19:55 - General physical appearance Present: well developed, well nourished, no distress - Respiratory Present: normal respiratory effort - Abdomen Present: soft - Genitourinary Present: other (Some blood around catheter at penis.) Urine Appearance: Present: Clear - Labs 12/01/16 04:16 12/01/16 04:16 Diabetes panel 12/01/16 Range/Units 04:16 Sodium 141 (136-145) mEq/L Potassium 3.9 (3.5-4.5) mEq/L Chloride 104 (98-109) mEq/L Carbon Dioxide 28 (19-29) mEq/L BUN 39 H (8-26) mg/dL Creatinine 2.03 H (0.72-1.25) mg/dL Glucose 204 H (70-99) mg/dL Calcium 9.3 (8.6-10.8) mg/dL Calcium panel 12/01/16 Range/Units 04:16 Calcium 9.3 (8.6-10.8) mg/dL Pituitary panel 12/01/16 Range/Units 04:16 Sodium 141 (136-145) mEq/L Potassium 3.9 (3.5-4.5) mEq/L Chloride 104 (98-109) mEq/L Carbon Dioxide 28 (19-29) mEq/L BUN 39 H (8-26) mg/dL Creatinine 2.03 H (0.72-1.25) mg/dL Glucose 204 H (70-99) mg/dL Calcium 9.3 (8.6-10.8) mg/dL Adrenal panel 12/01/16 Range/Units 04:16 Sodium 141 (136-145) mEq/L Potassium 3.9 (3.5-4.5) mEq/L Chloride 104 (98-109) mEq/L Carbon Dioxide 28 (19-29) mEq/L BUN 39 H (8-26) mg/dL Creatinine 2.03 H (0.72-1.25) mg/dL Glucose 204 H (70-99) mg/dL Calcium 9.3 (8.6-10.8) mg/dL Consult Discharge Plan - Plan [facility]errals: [facility] [Primary Care Provider] -
[2016-12-01] MEDS: Aspirin 81 MG TAB.CHEW PO SCH (10:12)
[2016-12-01] MEDS: Pregabalin 25 MG CAPSULE PO SCH ×2 (10:12→20:22)
[2016-12-01] MEDS: Spironolactone 25 MG TABLET PO SCH (10:12)
[2016-12-01] MEDS: Insulin DETEMIR 100 UNIT/ML X5UNITS SQ SCH (10:12)
[2016-12-01] MEDS: Metoprolol XL (24 HR) Succ 50 MG TAB.ER.24H PO SCH (10:12)
[2016-12-01] MEDS: Finasteride 5 MG TABLET PO SCH (10:12)
[2016-12-01] MEDS: Sennosides 8.6 MG TABLET PO SCH ×2 (10:12→20:22)
[2016-12-01] MEDS: *HR* HYDROcodone/Acet 5/325 mg TABLET PO PRN (10:40)
[2016-12-01] MEDS: *HR* Digoxin 0.125 MG TABLET PO SCH (14:11)
--- NOTE | 2016-12-01 17:38 | Internal Med Progress Note ---
Date of Encounter: 12/01/16 Time of Encounter: 07:50 - Assessment and plan (1) CHF (congestive heart failure) Current Visit: Yes Status: Acute Assessment and plan: Acute exacerbation of chronic CHF systolic dysfunction LVEF 30% - slowly improving Continue Lasix drip, fluid restriction, strict I's and O's, daily weight, cardiac telemetry Continue aspirin, digoxin, metoprolol, Aldactone EKG - paced rhythm Troponin - 0.02 BN peptide - 844 Chest x-ray - persistent findings suggestive of edema with small right-sided effusion and mild bibasilar airspace disease CT abdomen and pelvis - moderate right and small left pleural effusion, cirrhotic-appearing liver, small amount of ascites, enlarged prostate, gallbladder wall appears thickened Echocardiogram - LVEF 30%, severe global and regional LV systolic dysfunction, mild to moderately dilated LV, RV normal size with moderate reduction in function, moderate TR and MR Continue to monitor closely, labs in a.m., patient will need 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-up 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 as outpatient Qualifiers: Congestive heart failure type: systolic Congestive heart failure chronicity : acute on chronic Qualified Code(s): I50.23 - Acute on chronic systolic ( congestive) heart failure (2) Obstructive uropathy Current Visit: Yes Status: Acute Assessment and plan: BPH - causing obstructive uropathy and urinary retention - resolved Gaffney catheter in place - immature resolved CT abdomen and pelvis - reviewed Urology consult - recommendations reviewed, appreciate input Continue Flomax 0.4 mg (3) CKD (chronic kidney disease) stage 3, GFR 30-59 ml/min Current Visit: No Status: Chronic Assessment and plan: Chronic kidney disease stage III - GFR and creatinine slightly worse, probably at baseline Monitor renal function closely, consult nephrology if patient develops acute kidney injury Avoid nephrotoxins (4) IDDM (insulin dependent diabetes mellitus) Current Visit: No Status: Chronic Assessment and plan: Diabetes mellitus type 2, insulin-dependent, hyperglycemia Continue Levemir, sliding scale insulin and glucose checks (5) COPD (chronic obstructive pulmonary disease) Current Visit: No Status: Chronic Assessment and plan: Stable, not in exacerbation Qualifiers: COPD type: emphysema Emphysema type: unspecified Qualified Code(s): J43.9 - Emphysema, unspecified (6) DVT prophylaxis Current Visit: No Status: Acute Assessment and plan: Continue heparin subcutaneous - Time Spent With Patient 25 - 35 minutes - Subjective Interval history: Examined this morning. Patient is awake and alert. Not in any distress. Denies chest pain or shortness of breath. Feels better now. No fever. Hemodynamically stable. Good urine output. No other acute events or complaints. Admitted for CHF exacerbation and obstructive uropathy likely due to BPH. IV Lasix drip continued. Slowly improving. Gaffney catheter in place. Urology has evaluated the patient. - Constitutional Vitals: Temp Pulse Resp BP Pulse Ox 98.0 F 70 15 93/58 98 12/01/16 15:48 12/01/16 15:48 12/01/16 15:48 12/01/16 15:48 12/01/16 15:48 General appearance: Present: cooperative, mild distress, A&O X 3, pleasant, answers questions appropriately - Head Head exam: Present: atraumatic - Eye Eye exam: Present: EOMI - ENT ENT exam: Present: mucous membranes moist - Respiratory Respiratory exam: Present: decreased breath sounds (Slightly decreased in both bases), rales (Mild scattered, improved). Absent: rhonchi, wheezes, tachypnea - Cardiovascular Cardiovascular exam: Present: RRR, +S1, +S2, systolic murmur - GI/Abdominal GI/Abdominal exam: Present: soft. Absent: distended, firm, guarding, tenderness - Extremities Exam Extremities exam: Present: pedal edema (Bilateral lower leg 3+ pitting edema), radial pulses palpable and symmetrical. Absent: cyanotic - Neurological Exam Neurological exam: Present: alert, oriented X3, no focal deficits. Absent: facial droop, speech deficit Internal Medicine: Result - Labs CBC & Chem 7: 12/01/16 04:16 12/01/16 04:16 Labs: Short CBC 12/01/16 Range/Units 04:16 WBC 8.5 (4.3-11.1) K/mcL Hgb 10.6 L (12.9-16.9) g/dL Hct 33.7 L (37.5-50.1) % Plt Count 168 (140-400) K/mcL Neutrophils # 5.3 (1.6-8.9) K/mcL BMP 12/01/16 04:16 Sodium 141 Potassium 3.9 Chloride 104 Carbon Dioxide 28 BUN 39 H Creatinine 2.03 H Glucose 204 H Calcium 9.3 - ABG Interpretation ABG results: PT/INR, D-dimer PT 12.2 Seconds (9.4-12.1) H 11/30/16 03:52 Consult Discharge Plan - Plan [facility]errals: [facility] [Primary Care Provider] -
[2016-12-01] MEDS ORDERED: *HR* Dextrose 50 % in Water (Syg) 50 ML SYRINGE IVP PRN (17:39)
[2016-12-01] MEDS ORDERED: Dextrose Gel 15 GM PO PRN ×2 (17:39)
[2016-12-01] MEDS ORDERED: D5% in Water 1,000 ML IVC PRN (17:39)
[2016-12-01] MEDS: Insulin LISPRO 300 UNITS/3 ML VIAL SQ SCH (21:00)
[2016-12-02] MEDS: Furosemide 240 MG in D5% in Water 96 ML IVC SCH (03:24)
[2016-12-02 08:46] LABS: Calcium 9.3 mg/dL (8.6-10.8)
[2016-12-02] MEDS: Insulin LISPRO 300 UNITS/3 ML VIAL SQ SCH ×4 (09:00→21:12)
[2016-12-02] MEDS: *HR* Heparin 5,000 UNIT/ML VIAL SQ SCH ×2 (09:00→18:28)
[2016-12-02] MEDS: *HR* HYDROcodone/Acet 5/325 mg TABLET PO PRN ×2 (09:02→18:49)
[2016-12-02] MEDS: Pregabalin 25 MG CAPSULE PO SCH ×2 (09:02→21:11)
[2016-12-02] MEDS: Finasteride 5 MG TABLET PO SCH (09:02)
[2016-12-02] MEDS: Sennosides 8.6 MG TABLET PO SCH ×2 (09:02→21:11)
[2016-12-02] MEDS: Spironolactone 25 MG TABLET PO SCH (09:02)
[2016-12-02] MEDS: Aspirin 81 MG TAB.CHEW PO SCH (09:02)
[2016-12-02] MEDS: Metoprolol XL (24 HR) Succ 50 MG TAB.ER.24H PO SCH (09:02)
[2016-12-02] MEDS: Insulin DETEMIR 100 UNIT/ML X5UNITS SQ SCH (09:12)
--- NOTE | 2016-12-02 15:31 | Internal Med Progress Note ---
Date of Encounter: 12/02/16 Time of Encounter: 15:30 - Assessment and plan (1) Obstructive uropathy Status: Acute Assessment and plan: Urology consult and follow-up appreciated. Recommend to discharge with indwelling Gaffney catheter and monitor for hematuria, currently resolved. Outpatient urology follow-up for voiding trial. (2) Hematuria Status: Resolved Qualifiers: Hematuria type: unspecified type Qualified Code(s): R31.9 - Hematuria, unspecified (3) CHF (congestive heart failure) Status: Acute Assessment and plan: Patient was recently discharged from hospital after being treated for acute systolic CHF. Plan of care discussed with patient's daughter at bedside. He does have a chronic history of systolic CHF but only takes Lasix as needed. He was discharged on twice daily Lasix after his previous hospitalization, however noted to have oliguria and urinary retention. Patient is currently on IV Lasix drip with very good urine output and net negative fluid balance. We will add metolazone and continue to monitor. Anticipate discharge in a.m. Qualifiers: Congestive heart failure type: systolic Congestive heart failure chronicity : acute on chronic Qualified Code(s): I50.23 - Acute on chronic systolic ( congestive) heart failure (4) CKD (chronic kidney disease) stage 3, GFR 30-59 ml/min Status: Chronic (5) IDDM (insulin dependent diabetes mellitus) Status: Chronic Assessment and plan: Continue Accu-Chek blood glucose monitoring with basal bolus insulin regimen. Diabetic diet. (6) COPD (chronic obstructive pulmonary disease) Status: Chronic Qualifiers: COPD type: emphysema Emphysema type: unspecified Qualified Code(s): J43.9 - Emphysema, unspecified - Subjective Interval history: Feels better; improving leg swelling; urine output improved with Gaffney catheter , hematuria resolved; - Constitutional Vitals: Temp Pulse Resp BP Pulse Ox 97.4 F L 73 17 103/57 97 12/02/16 15:10 12/02/16 15:10 12/02/16 15:10 12/02/16 15:10 12/02/16 15:10 General appearance: Present: A&O X 3, answers questions appropriately - Respiratory Respiratory exam: Present: CTAB. Absent: accessory muscle use, rales, rhonchi, wheezes - Cardiovascular Cardiovascular exam: Present: irregular rhythm, +S1, +S2. Absent: diastolic murmur, gallop, rubs, systolic murmur - GI/Abdominal GI/Abdominal exam: Present: normal bowel sounds, soft, no peritoneal signs. Absent: distended, tenderness - Extremities Exam Extremities exam: Present: full ROM, pedal edema, warm, radial pulses palpable and symmetrical. Absent: calf tenderness, cyanotic Internal Medicine: Result - Labs CBC & Chem 7: 12/01/16 04:16 12/02/16 07:29 Labs: BMP 12/02/16 07:29 Sodium 139 Potassium 4.0 Chloride 103 Carbon Dioxide 29 BUN 41 H Creatinine 1.89 H Glucose 132 H Calcium 9.3 - ABG Interpretation ABG results: PT/INR, D-dimer PT 12.2 Seconds (9.4-12.1) H 11/30/16 03:52 Consult Discharge Plan - Plan Instructions: Metolazone (By mouth), Gaffney Catheter Placement and Care (DC), Low Sodium Diet (DC), Urinary Leg Bag (GEN) Additional Instructions: F/up with PCP at [facility] in 1-2 weeks F/up with [facility] in 1-2 weeks for voiding trial; F/up with Cardiology- in [place], [place] today as scheduled Referrals: Adal Pleitez MD [Partnered Physician] - 12/16/16 10:15 am [place],PCP [Primary Care Provider] - Prescriptions: metOLazone [Zaroxolyn] 5 mg PO DAILY #30 tab
[2016-12-02] MEDS: metOLazone 5 MG TABLET PO SCH (18:49)
[2016-12-03] MEDS: *HR* Heparin 5,000 UNIT/ML VIAL SQ SCH (05:48)
[2016-12-03] MEDS: Furosemide 240 MG in D5% in Water 96 ML IVC SCH (05:48)
[2016-12-03] MEDS: Insulin LISPRO 300 UNITS/3 ML VIAL SQ SCH ×2 (07:23→12:07)
[2016-12-03] MEDS: Finasteride 5 MG TABLET PO SCH (09:53)
[2016-12-03] MEDS: metOLazone 5 MG TABLET PO SCH (09:53)
[2016-12-03] MEDS: Pregabalin 25 MG CAPSULE PO SCH (09:54)
[2016-12-03] MEDS: Aspirin 81 MG TAB.CHEW PO SCH (09:54)
[2016-12-03] MEDS: Metoprolol XL (24 HR) Succ 50 MG TAB.ER.24H PO SCH (09:54)
[2016-12-03] MEDS: Sennosides 8.6 MG TABLET PO SCH (09:55)
[2016-12-03] MEDS: Insulin DETEMIR 100 UNIT/ML X5UNITS SQ SCH (10:01)
[2016-12-03 10:47] VITALS: BP 120/57
--- NOTE | 2016-12-03 12:33 | Discharge Summary ---
Date of Encounter: 12/03/16 Time of Encounter: 12:29 - Discharge Diagnosis (1) CHF (congestive heart failure) Priority: Primary Status: Acute Qualifiers: Congestive heart failure type: systolic Congestive heart failure chronicity : acute on chronic Qualified Code(s): I50.23 - Acute on chronic systolic ( congestive) heart failure (2) CKD (chronic kidney disease) stage 3, GFR 30-59 ml/min Priority: Secondary Status: Chronic (3) IDDM (insulin dependent diabetes mellitus) Priority: Secondary Status: Chronic (4) COPD (chronic obstructive pulmonary disease) Priority: Secondary Status: Chronic Qualifiers: COPD type: emphysema Emphysema type: unspecified Qualified Code(s): J43.9 - Emphysema, unspecified (5) Obstructive uropathy Priority: Primary Status: Acute (6) Hematuria Priority: Primary Status: Resolved Qualifiers: Hematuria type: unspecified type Qualified Code(s): R31.9 - Hematuria, unspecified - Discharge Medications Prescriptions: metOLazone [Zaroxolyn] 5 mg PO DAILY #30 tab Home Medications: Albuterol Sulfate [Albuterol Inhaler] 2 puff IH BID PRN 01/18/16 [History] Allopurinol [Zyloprim 300 MG] 300 mg PO DAILY 01/18/16 [History] Aspirin 162 mg PO DAILY 01/18/16 [History] Calcium Carbonate/Vitamin D3 [Calcium 500-Vit D3 200 Caplet] 1 each PO BID 01/17 [History] Cholecalciferol (D-3) [Vitamin D] 4,000 unit PO DAILY 01/18/16 [History] Clopidogrel [Plavix] 75 mg PO DAILY 01/18/16 [History] Digoxin [Lanoxin] 0.125 mg PO MOWEFR 01/18/16 [History] Docusate Sodium [Dok] 100 mg PO BID 01/18/16 [History] Ferrous Sulfate 325 mg PO BID 01/18/16 [History] Meclizine HCl [Verticalm] 25 mg PO BID 01/18/16 [History] Nitroglycerin [Nitrostat] 0.4 mg SL Q5M PRN 01/18/16 [History] Pantoprazole Sodium [Protonix] 40 mg PO DAILY 01/18/16 [History] Sennosides [Senna] 8.6 mg PO BID 01/18/16 [History] Betamethasone Dipropionate 1 appl TP TID 11/25/16 [History] Insulin Glargine,Hum.rec.anlog [Lantus Solostar] 38 unit SQ QAM 11/25/16 [ History] Ketoconazole 2% CRM [Nizoral Cream] 1 appl TP BID 11/25/16 [History] Lidocaine Patch [Lidoderm 5% patch] 2 each TP DAILY 11/25/16 [History] Metoprolol Succinate 100 mg PO DAILY 11/25/16 [History] glipiZIDE [Glucotrol] 5 mg PO DAILY 11/25/16 [History] Lisinopril [Zestril] 10 mg PO DAILY #30 tablet 11/27/16 [Rx] Finasteride [Proscar] 5 mg PO DAILY 11/29/16 [History] Furosemide [Lasix] 40 mg PO BID 11/29/16 [History] Pregabalin [Lyrica] 25 mg PO BID 11/29/16 [History] Tamsulosin HCl [Flomax] 0.4 mg PO HS 11/29/16 [History] metOLazone [Zaroxolyn] 5 mg PO DAILY #30 tab 12/03/16 [Rx] Allergies/Adverse Reactions: 3 Allergy/AdvReac Type Severity Reaction Status Date / Time atorvastatin Allergy See Verified 11/30/16 10:50 Comments rosuvastatin Allergy See Verified 11/30/16 10:50 Comments Date of admission: 12/01/16 17:40 Primary care physician: PCP [place] Consults: 12/02/16 11:34 Consult to Stiff Leg Derrick Operator [CONS] Routine Reason for Consult: D/C planning. [place] home health Discharging clinician: Savanah Wooten Anticipated date of discharge: 12/03/16 - Patient Status Disposition: Home Health Service Condition: Good Functional capacity at discharge: independent ambulation Overall status at discharge: patient is progressing back to baseline - Discharge Instructions Instructions: Metolazone (By mouth), Gaffney Catheter Placement and Care (DC), Low Sodium Diet (DC), Urinary Leg Bag (GEN) Follow Up With: Adal Pleitez MD [Partnered Physician] - 12/16/16 10:15 am [place],PCP [Primary Care Provider] - Additional Instructions: F/up with PCP at [facility] in 1-2 weeks F/up with [facility] in 1-2 weeks for voiding trial; F/up with Cardiology- in [place], [place] today as scheduled - Diet and Activity Activity: as per physical therapy Diet: diabetic diet, low fat, low cholesterol, low salt diet (fluid restriction to 1.2L/day) Hospital course: Mr. Krishna is a 81 year old male with the above medical problems was recently discharged from our hospital after being treated for acute CHF, was initially admitted with difficulty urination. He was also noted to have symptoms of acute CHF due to impaired urine output despite taking oral Lasix at home. Patient received Gaffney catheter at admission and his urine output gradually improved during this hospitalization. He also had mild hematuria after catheterization. Urology was consulted and agreed with Gaffney catheter, recommended to be discharged on Gaffney catheter with outpatient urology follow- up for voiding trial. He was started on IV Lasix drip due to underlying chronic kidney disease, metolazone was added later. He was noted to have significant urine output with that negative fluid balance and symptomatic improvement. He is no longer requiring supplemental oxygen, remains hemodynamically stable. He has an outpatient cardiology appointment today and is medically stable for discharge, recommended to keep this appointment. Plan of care discussed with patient's daughter and at bedside, they are in agreement. - Time Spent with Patient Total time spent providing and/or coordinating discharge services: Greater than 30 minutes (40 min) - Constitutional Vitals: Temp Pulse Resp BP Pulse Ox 97.5 F L 68 17 120/57 98 12/03/16 10:46 12/03/16 10:46 12/03/16 10:46 12/03/16 10:46 12/03/16 10:46 General appearance: Present: A&O X 3, answers questions appropriately - Respiratory Respiratory exam: Present: CTAB. Absent: accessory muscle use, rales, rhonchi, wheezes - Cardiovascular Cardiovascular exam: Present: RRR, +S1, +S2. Absent: diastolic murmur, gallop, rubs, systolic murmur
--- NOTE | 2016-12-03 12:35 | Physician Discharge Referral ---
Home Health/Hosp Referral Info Transfer to: Home Health Attending Provider: Savanah Wooten Provider in Charge Post Discharge: PCP - Diagnosis (1) CHF (congestive heart failure) Priority: Primary Status: Acute (2) CKD (chronic kidney disease) stage 3, GFR 30-59 ml/min Priority: Secondary Status: Chronic (3) IDDM (insulin dependent diabetes mellitus) Priority: Secondary Status: Chronic (4) COPD (chronic obstructive pulmonary disease) Priority: Secondary Status: Chronic (5) Obstructive uropathy Priority: Primary Status: Acute (6) Hematuria Priority: Primary Status: Resolved - Respiratory Orders Smoking Cessation: Smoking cessation has been advised. For more information, call the [place] Tobacco Quit Line at 4-497-YNAS-NOW. - Diet/Nutrition Diet/Nutrition Orders: No Added Salt (NAVEED), Renal, Cardiac, No Concentrated Sweets (diabetic) - Activity Activity Orders: Ambulate - Services Needed Following services are medically necessary services: Nursing, Physical Therapy, Occupational Therapy Home Care Orders: Patient is being discharged on indwelling Gaffney catheter for now due to urinary retention and some hematuria; needs to f/up with Urology; - Transfer Medications Prescriptions: metOLazone [Zaroxolyn] 5 mg PO DAILY #30 tab Home Medications: Albuterol Sulfate [Albuterol Inhaler] 2 puff IH BID PRN 01/18/16 [History] Allopurinol [Zyloprim 300 MG] 300 mg PO DAILY 01/18/16 [History] Aspirin 162 mg PO DAILY 01/18/16 [History] Calcium Carbonate/Vitamin D3 [Calcium 500-Vit D3 200 Caplet] 1 each PO BID 01/17 [History] Cholecalciferol (D-3) [Vitamin D] 4,000 unit PO DAILY 01/18/16 [History] Clopidogrel [Plavix] 75 mg PO DAILY 01/18/16 [History] Digoxin [Lanoxin] 0.125 mg PO MOWEFR 01/18/16 [History] Docusate Sodium [Dok] 100 mg PO BID 01/18/16 [History] Ferrous Sulfate 325 mg PO BID 01/18/16 [History] Meclizine HCl [Verticalm] 25 mg PO BID 01/18/16 [History] Nitroglycerin [Nitrostat] 0.4 mg SL Q5M PRN 01/18/16 [History] Pantoprazole Sodium [Protonix] 40 mg PO DAILY 01/18/16 [History] Sennosides [Senna] 8.6 mg PO BID 01/18/16 [History] Betamethasone Dipropionate 1 appl TP TID 11/25/16 [History] Insulin Glargine,Hum.rec.anlog [Lantus Solostar] 38 unit SQ QAM 11/25/16 [ History] Ketoconazole 2% CRM [Nizoral Cream] 1 appl TP BID 11/25/16 [History] Lidocaine Patch [Lidoderm 5% patch] 2 each TP DAILY 11/25/16 [History] Metoprolol Succinate 100 mg PO DAILY 11/25/16 [History] glipiZIDE [Glucotrol] 5 mg PO DAILY 11/25/16 [History] Lisinopril [Zestril] 10 mg PO DAILY #30 tablet 11/27/16 [Rx] Finasteride [Proscar] 5 mg PO DAILY 11/29/16 [History] Furosemide [Lasix] 40 mg PO BID 11/29/16 [History] Pregabalin [Lyrica] 25 mg PO BID 11/29/16 [History] Tamsulosin HCl [Flomax] 0.4 mg PO HS 11/29/16 [History] metOLazone [Zaroxolyn] 5 mg PO DAILY #30 tab 12/03/16 [Rx] Allergies/Adverse Reactions: 3 Allergy/AdvReac Type Severity Reaction Status Date / Time atorvastatin Allergy See Verified 11/30/16 10:50 Comments rosuvastatin Allergy See Verified 11/30/16 10:50 Comments Certification: Further, I certify that my clinical findings support that this patient is homebound (i.e. absences from home require considerable and taxing effort and are for medical reasons or temple services or infrequently or short duration when for other reasons) because: Homebound Reason: Patient requires assistance of a person or device to safely leave home, Leaving home requires considerable and taxing effort due to condition, Severity of cardiac or pulmonary status limits activity tolerance Attestation: My signature below is to certify that this patient is under my care and that I, or nurse practitioner, or a physician's clinical project assistant working with me, has a face-to -face encounter with this patient.
[2016-12-03] MEDS: *HR* HYDROcodone/Acet 5/325 mg TABLET PO PRN (13:02)
[2016-12-03] MEDS: *HR* Digoxin 0.125 MG TABLET PO SCH (13:41)
== END 2016-12-03 13:30 | disposition home health service (06) | DRG 292 ==
LOC: 3BNU 19:47 → EMEROO 19:47 → 3BNU 23:16 → SUATTDRO 12-01 17:40
PROVIDERS: ADMIT Internal Medicine; ATTEND Internal Medicine

== ENCOUNTER 2017-02-07 15:25 | Inpatient (IN) ==
--- NOTE | 2017-02-07 15:55 | Emergency Department Note ---
Disposition Clinical Impression: CHF exacerbation Qualifiers: Congestive heart failure type: unspecified congestive heart failure type Qualified Code(s): I50.9 - Heart failure, unspecified Disposition: Admitted As Inpatient Condition: Good Time of Disposition: 18:52 General Adult HPI - General Chief complaint: ED Shortness of Breath/Dyspnea Stated complaint: edema, KYLER Time Seen by Provider: 02/07/17 15:32 Source: patient, family Limitations: no limitations Nursing Notes Reviewed: Yes Vital Signs Reviewed: Yes - History of Present Illness HPI Narrative: 81-year-old male with significant past medical history of having a pacemaker defibrillator and CHF presented to the emergency Department chief complaint of urinary retention and shortness of breath and cough. Patient was recently discharged for CHF exacerbation. When he was discharged to increase his Lasix to 40 mg 3 times a day. Patient states he has only urinated one to 2 times per day since his discharge. He states he is overall "not feeling well". Denies fever but does state he has a cough but no sputum production. No burning or pain with urination. Patient does have past medical history of BPH which is currently being treated as an outpatient with urology. Patient also states he is having difficulty in breathing. He denies chest pain at this time. Pain Scale: 6 - Related Data Home Medications Medication Instructions Recorded Confirmed Albuterol Sulfate [Albuterol 2 puff IH BID PRN 01/18/16 01/31/17 Inhaler] Allopurinol [Zyloprim 300 MG] 300 mg PO DAILY 01/18/16 01/31/17 Aspirin 162 mg PO DAILY 01/18/16 01/31/17 Calcium Carbonate/Vitamin D3 1 tab PO BID 01/18/16 01/31/17 [Calcium 500-Vit D3 200 Caplet] Cholecalciferol (D-3) [Vitamin D] 4,000 unit PO DAILY 01/18/16 01/31/17 Clopidogrel [Plavix] 75 mg PO DAILY 01/18/16 01/31/17 Digoxin [Lanoxin] 0.125 mg PO MOWEFR 01/18/16 01/31/17 Docusate Sodium [Dok] 100 mg PO BID 01/18/16 01/31/17 Ferrous Sulfate 325 mg PO BID 01/18/16 01/31/17 Nitroglycerin [Nitrostat] 0.4 mg SL Q5M PRN 01/18/16 01/31/17 Sennosides [Senna] 8.6 mg PO BID 01/18/16 01/31/17 Betamethasone Dipropionate 1 appl TP TID 11/25/16 01/31/17 Insulin Glargine,Hum.rec.anlog 30 unit SQ QAM 11/25/16 01/31/17 [Lantus Solostar] Ketoconazole 2% CRM [Nizoral Cream] 1 appl TP BID 11/25/16 01/31/17 Lidocaine Patch [Lidoderm 5% patch] 2 patch TP DAILY 11/25/16 01/31/17 Finasteride [Proscar] 5 mg PO DAILY 11/29/16 01/31/17 Furosemide [Lasix] 40 mg PO BID 11/29/16 01/31/17 Pregabalin [Lyrica] 25 mg PO BID 11/29/16 01/31/17 Tamsulosin HCl [Flomax] 0.4 mg PO HS 11/29/16 01/31/17 Melatonin/Pyridoxine HCl (B6) 9 mg PO QPM PRN 01/31/17 01/31/17 [Melatonin 3 mg Tablet] Metoprolol Succinate 25 mg PO DAILY 01/31/17 01/31/17 Nut.tx.gluc.intoler,Lac-Fr,Soy 237 ml PO DAILY 01/31/17 01/31/17 [Glucerna] Oxycodone HCl [Oxaydo] 2.5 mg PO TID PRN 01/31/17 01/31/17 Previous Rx's Medication Instructions Recorded metOLazone [Zaroxolyn] 5 mg PO DAILY #30 tab 12/03/16 Allergies Allergy/AdvReac Type Severity Reaction Status Date / Time atorvastatin Allergy See Verified 02/07/17 15:30 Comments rosuvastatin Allergy See Verified 02/07/17 15:30 Comments All systems ED: reviewed and negative except as stated. Constitutional: Denies: fever, chills, weakness Eyes: Reports: as per HPI ENT ED: Reports: as per HPI Cardiovascular: Denies: chest pain, palpitations Respiratory: Reports: cough, dyspnea. Denies: wheezes, hemoptysis Gastrointestinal: Reports: as per HPI Genitourinary: Reports: as per HPI Musculoskeletal: Reports: as per HPI Integumentary: Reports: other (Multiple ecchymosis noted in the lower abdomen) Neurological: Reports: as per HPI Psychiatric: Reports: as per HPI Endocrine: Reports: as per HPI Hematological/Lymphatic: Reports: as per HPI Allergic/Immunologic: Reports: as per HPI Past Medical History - Past Medical History Attestation: Yes The following information was validated with the patient. Medical history: Reports: atrial fibrillation, CHF, COPD, diabetes, hyperlipidemia, renal disease Surgical history: Reports: pacemaker/AICD Psychiatric history: Reports: no psych history - Social History Smoking Status: Former smoker Smokeless Tobacco Status: No Alcohol use: Reports: none Drug use: Reports: none Physical Exam - General Limitations: no limitations General appearance: alert, in no apparent distress - Head Head exam: atraumatic, normocephalic, normal inspection - Chest Chest inspection: Present: normal inspection, symmetric chest wall rise. Absent : tenderness, rash - Respiratory Respiratory exam: Present: other (Decreased breath sounds in the inferior posterior lung hayes) - Cardiovascular Cardiovascular exam: Present: regular rate, normal rhythm, normal heart sounds - Abdominal Exam Abdominal exam: Present: soft, Non-Tender, other (Ecchymosis noted on the lower abdomen). Absent: distention, guarding, rebound - Extremities Exam Extremities exam: Present: normal inspection, full ROM - Neurological Exam Neurological exam: Present: alert, oriented X3 - Psychiatric Psychiatric exam: Present: normal affect, normal mood - Skin Skin exam: Present: warm, intact Course Course Narrative: 81-year-old male presenting to the emergency department with complaint of urinary retention and shortness of breath. Patient has significant history of CHF. Patient is not overtly fluid and loaded on physical exam. Lungs do not sound wet and he has no edema in the lower extremities. Concern for her prerenal origin due to the increase of Lasix and decreased urinary output. Bedside ultrasound was completed which showed approximately 200 mL of fluid in the bladder. We will obtain basic lab work including BNP and EKG. Disposition pending results. - Reevaluation(s) Reevaluation #1: Chest x-ray showed possible pneumonia along with pleural effusion. We ordered a CT of the chest to confirm or deny the possible pneumonia diagnosis. CT of the chest showed pleural effusion but no sign of pneumonia. We will admit the patient at this time to hospitalist service for CHF exacerbation. [facility] accepts the patient at this time. Time: 18:51 Vital Signs Temperature 98.2 F 02/07/17 15:26 Pulse Rate 78 02/07/17 15:26 Respiratory Rate 20 02/07/17 15:26 Blood Pressure 96/56 02/07/17 15:26 O2 Sat by Pulse Oximetry 99 02/07/17 15:26 Temperature 98.2 F 02/07/17 15:26 Pulse Rate 72 02/07/17 18:58 Respiratory Rate 18 02/07/17 18:58 Blood Pressure 101/57 02/07/17 17:46 O2 Sat by Pulse Oximetry 97 02/07/17 18:58 Oxygen Delivery Oxygen Delivery Room Air Medical Decision Making - Lab Data Result diagrams: 02/07/17 16:06 02/07/17 16:06 Lab Results 02/07/17 02/07/17 02/07/17 Range/Units 16:06 16:06 16:06 WBC 9.0 (4.3-11.1) K/mcL RBC 3.33 L (4.19-5.50) M/mcL Hgb 9.8 L (12.9-16.9) g/dL Hct 31.5 L (37.5-50.1) % MCV 94.6 (83.0-100.0) fL MCH 29.4 (28.0-33.3) pg MCHC 31.1 L (31.6-35.5) g/dL RDW 16.8 H (11.5-14.5) % Plt Count 187 (140-400) K/mcL MPV 10.0 (9.4-12.4) fL Immature Gran % 0.3 (0-4) % Seg Neutrophils % 66.1 % Lymphocytes % 20.3 % Monocytes % 7.9 % Eosinophils % 4.8 % Basophils % 0.6 % Neutrophils # 6.0 (1.6-8.9) K/mcL Lymphocytes # 1.8 (0.6-4.6) K/mcL Monocytes # 0.7 (0.0-1.3) K/mcL Eosinophils # 0.4 (0.0-0.6) K/mcL Basophils # 0.1 (0.0-0.2) K/mcL Sodium 139 (136-145) mEq/L Potassium 3.8 (3.5-4.5) mEq/L Chloride 102 (98-109) mEq/L Carbon Dioxide 30 H (19-29) mEq/L BUN 30 H (8-26) mg/dL Creatinine 1.44 H (0.72-1.25) mg/dL Est GFR ( Amer) 57 L (> 60) Est GFR (Non-Af Amer) 47 L (> 60) BUN/Creatinine Ratio 21 (6-26) Glucose 113 H (70-99) mg/dL Calculated Osmolality 295 (280-300) Calcium 9.6 (8.6-10.8) mg/dL Troponin I 0.01 (0-0.03) ng/mL B-Natriuretic Peptide (0-100) pg/mL 02/07/17 Range/Units 16:06 WBC (4.3-11.1) K/mcL RBC (4.19-5.50) M/mcL Hgb (12.9-16.9) g/dL Hct (37.5-50.1) % MCV (83.0-100.0) fL MCH (28.0-33.3) pg MCHC (31.6-35.5) g/dL RDW (11.5-14.5) % Plt Count (140-400) K/mcL MPV (9.4-12.4) fL Immature Gran % (0-4) % Seg Neutrophils % % Lymphocytes % % Monocytes % % Eosinophils % % Basophils % % Neutrophils # (1.6-8.9) K/mcL Lymphocytes # (0.6-4.6) K/mcL Monocytes # (0.0-1.3) K/mcL Eosinophils # (0.0-0.6) K/mcL Basophils # (0.0-0.2) K/mcL Sodium (136-145) mEq/L Potassium (3.5-4.5) mEq/L Chloride (98-109) mEq/L Carbon Dioxide (19-29) mEq/L BUN (8-26) mg/dL Creatinine (0.72-1.25) mg/dL Est GFR ( Amer) (> 60) Est GFR (Non-Af Amer) (> 60) BUN/Creatinine Ratio (6-26) Glucose (70-99) mg/dL Calculated Osmolality (280-300) Calcium (8.6-10.8) mg/dL Troponin I (0-0.03) ng/mL B-Natriuretic Peptide 744 H (0-100) pg/mL - EKG Data EKG #1 EKG attestation: Yes I reviewed and interpreted this EKG. EKG results narrative: Ventricularly paced EKG. 78 bpm. NV interval 222, QRS 172, QTC 540. No signs of acute ST segment elevation. When compared to previous EKG completed on 01/31 no significant changes when compared to another previous EKG completed on 11/30/2016 no significant changes. Attestation Statement - Attestation Attestation: I examined this patient and my medical decision-making was reviewed with the Resident Physician. I agree with the documented findings, disposition and treatment plan as described except to the extent set forth below. 81-year-old male presents with weight gain. He is on aggressive diuresis regimen however now has worsening weight gain. He was concerned about possible urinary retention. No evidence of urinary retention on bedside ultrasound. Plan to obtain admission for diuresis, monitoring of weight, possible worsening of heart failure.
[2017-02-07 16:24] LABS: Basophils # 0.1 K/mcL (0.0-0.2); Basophils % 0.6 %; Eosinophils # 0.4 K/mcL (0.0-0.6); Eosinophils % 4.8 %; Hematocrit 31.5 % (37.5-50.1); Hemoglobin 9.8 g/dL (12.9-16.9); Immature Granulocytes % 0.3 % (0-4); Lymphocytes # 1.8 K/mcL (0.6-4.6); Lymphocytes % 20.3 %; Mean Corpuscular HGB Conc 31.1 g/dL (31.6-35.5); Mean Corpuscular Hemoglobin 29.4 pg (28.0-33.3); Mean Corpuscular Volume 94.6 fL (83.0-100.0); Monocytes # 0.7 K/mcL (0.0-1.3); Monocytes % 7.9 %; Platelet Count 187 K/mcL (140-400); Red Blood Count 3.33 M/mcL (4.19-5.50); Red Cell Distribution Width 16.8 % (11.5-14.5); Segmented Neutrophils % 66.1 %
[2017-02-07 16:42] LABS: Calcium 9.6 mg/dL (8.6-10.8); Potassium 3.8 mEq/L (3.5-4.5)
--- NOTE | 2017-02-07 22:27 | Event Note ---
Date of Encounter: 02/07/17 Time of Encounter: 22:26 Patient seen and examined with medical representative. Acute congestive heart failure due to systolic dysfunction. X-ray showing re-accumulation of pleural effusion. He had one prior thoracentesis recently as our facility with retrieval of 1.8 L. Will start aggressively diuresis 1st. Patient had a CT scan of the chest twice this month however both were not contrasted and there was no evidence of long mass or lymphadenopathy. Patient denies any weight loss. Appetite is fair. Full code
[2017-02-07] MEDS ORDERED: Ondansetron 4 MG/2 ML VIAL IVP PRN (22:54)
[2017-02-07] MEDS ORDERED: Acetaminophen 325 MG TABLET PO PRN (22:54)
[2017-02-07] MEDS ORDERED: Naloxone 0.4 MG/ML INJ IVP PRN (22:54)
[2017-02-07] MEDS ORDERED: *HR* Dextrose 50 % in Water (Syg) 50 ML SYRINGE IVP PRN (23:00)
[2017-02-07] MEDS ORDERED: D5% in Water 1,000 ML IVC PRN (23:00)
[2017-02-07] MEDS ORDERED: Dextrose Gel 15 GM PO PRN ×2 (23:00)
--- NOTE | 2017-02-07 23:22 | Internal Med History&Physical ---
Date of Encounter: 02/07/17 Time of Encounter: 23:12 Assessment and Plan (1) Acute on chronic systolic CHF (congestive heart failure) Current visit: Yes Status: Acute - Acute exacerbation of chronic HFrEF - BNP 744, increased right pleural effusion on CXR/CT in ED - Echo on last visit shows EF 30%, global dyskinesis, severe dilation of multiple chambers. - Recent admission last week for same. - Increase home lasix dose to 40 IV BID. Fluid restrict to 1.5L, continue home metolazone. - Daily weights, strict I/Os. (2) BPH (benign prostatic hyperplasia) Current visit: Yes Status: Chronic Pt states that he is not experiencing difficulty urinating. - BUN/Cr at baseline levels. - Bladder US ordered, pending results. - Continue home meds. Qualifiers: Lower urinary tract symptom presence: symptoms present Lower urinary tract symptom detail: straining on urination Qualified Code(s): N40.1 - Benign prostatic hyperplasia with lower urinary tract symptoms; R39.16 - Straining to void; R39.16 - Straining to void (3) CKD (chronic kidney disease) stage 3, GFR 30-59 ml/min Current visit: Yes Status: Chronic - Stable, at baseline BUN/Cr - Avoid nephrotoxic medications - Monitor for too rapid diuresis (4) IDDM (insulin dependent diabetes mellitus) Current visit: Yes Status: Chronic BS well controlled at 113. - A1c at last visit, last week of 6.1% - Low dose SSI (5) COPD (chronic obstructive pulmonary disease) Current visit: No Status: Chronic Dyspnea more likely CHF exacerbation given BNP, CXR, orthopnea - Continue home albuterol PRN Qualifiers: COPD type: emphysema Emphysema type: unspecified Qualified Code(s): J43.9 - Emphysema, unspecified (6) Coronary artery disease Current visit: No Status: Chronic - No complaints of chest pain - EKG unremarkable. Troponin wnl. - Continue home ASA, plavix. Qualifiers: Coronary Disease-Associated Artery/Lesion type: [place] artery [place] vs. transplanted heart: [place] heart Associated angina: without angina Qualified Code(s): I25.10 - Atherosclerotic heart disease of [place] coronary artery without angina pectoris (7) DVT prophylaxis Current visit: Yes Status: Acute Heparin 5000 units Internal Medicine - H&P: HPI Chief complaint: SOB Admitted From: Emergency Dept Plans for Post Hospital Care: Home History of present illness: Mr. Krishna is a 81 year old male who presents to ED with a complaint of SOB. He was recently discharged from [facility] last week for CHF exacerbation and he was discharged home with lasix and metolazone. He reports that he has had continued SOB which has been consistent since his discharge. He has been complaint with fluid restriction but states that he does not take care of his medications so he is unsure on those. He reports a weight gain of 2 lbs in that time. He states his SOB is worse on exertion but present at rest and admits to orthopnea. He also states that he has not been urinating as much. He states that he does not have hesitancy, but rather does not feel the urge to go. He states he was able to go a small amount while in the ED. He denies any symptoms of CP, fevers, chills, nausea, vomiting, dysuria. In ED, VSS. Labs significant for mild anemia, elevated BNP. CXR showed increased pleural effusion on right which thoracentesis was done last week removing 1.8L. Past Med Surg Social Fam HX - Past Medical History Medical history: atrial fibrillation, CHF, COPD, diabetes, hyperlipidemia, renal disease Psychiatric history: no psych history - Past Surgical History Surgical History: pacemaker/AICD - Social History Smoking Status: Former smoker Smokeless Tobacco Status: No Alcohol use: none Drug use: none - Family History Mother History Unknown: Yes Living Status: Hx Family Cardiac Disorders: Yes (CVA) Hx Family Respiratory Disorders: No Hx Family Cancer: No Hx Family GI Disorders: No Hx Family Endocrine Disorder: No Hx Family Neuromuscular Disorders: No Hx Family Neurologic Disorders: No Hx Family HEENT Disorders: No Hx Family Autoimmune Disorders: No Father History Unknown: Yes Living Status: Hx Family Cardiac Disorders: Yes Brother History Unknown: Yes Hx Family Cardiac Disorders: No Hx Family Respiratory Disorders: No Hx Family Cancer: Yes (Pancreatic) Hx Family GI Disorders: No Hx Family Endocrine Disorder: No Hx Family Neuromuscular Disorders: No Hx Family Neurologic Disorders: No Hx Family HEENT Disorders: No Hx Family Autoimmune Disorders: No Internal Medicine - H&P: Meds Albuterol Sulfate [Albuterol Inhaler] 2 puff IH BID PRN 01/18/16 [History] Allopurinol [Zyloprim 300 MG] 300 mg PO DAILY 01/18/16 [History] Aspirin 162 mg PO DAILY 01/18/16 [History] Calcium Carbonate/Vitamin D3 [Calcium 500-Vit D3 200 Caplet] 1 tab PO BID [History] Cholecalciferol (D-3) [Vitamin D] 4,000 unit PO DAILY 01/18/16 [History] Clopidogrel [Plavix] 75 mg PO DAILY 01/18/16 [History] Digoxin [Lanoxin] 0.125 mg PO MOWEFR 01/18/16 [History] Docusate Sodium [Dok] 100 mg PO BID 01/18/16 [History] Ferrous Sulfate 325 mg PO BID 01/18/16 [History] Nitroglycerin [Nitrostat] 0.4 mg SL Q5M PRN 01/18/16 [History] Sennosides [Senna] 8.6 mg PO BID 01/18/16 [History] Betamethasone Dipropionate 1 appl TP TID 11/25/16 [History] Insulin Glargine,Hum.rec.anlog [Lantus Solostar] 30 unit SQ QAM 11/25/16 [ History] Ketoconazole 2% CRM [Nizoral Cream] 1 appl TP BID 11/25/16 [History] Lidocaine Patch [Lidoderm 5% patch] 2 patch TP DAILY 11/25/16 [History] Finasteride [Proscar] 5 mg PO DAILY 11/29/16 [History] Furosemide [Lasix] 40 mg PO BID 11/29/16 [History] Pregabalin [Lyrica] 25 mg PO BID 11/29/16 [History] Tamsulosin HCl [Flomax] 0.4 mg PO HS 11/29/16 [History] metOLazone [Zaroxolyn] 5 mg PO DAILY #30 tab 12/03/16 [Rx] Melatonin/Pyridoxine HCl (B6) [Melatonin 3 mg Tablet] 9 mg PO QPM PRN 01/31/17 [ History] Metoprolol Succinate 25 mg PO DAILY 01/31/17 [History] Nut.tx.gluc.intoler,Lac-Fr,Soy [Glucerna] 237 ml PO DAILY 01/31/17 [History] Oxycodone HCl [Oxaydo] 2.5 mg PO TID PRN 01/31/17 [History] 3 Allergy/AdvReac Type Severity Reaction Status Date / Time atorvastatin Allergy See Verified 02/07/17 15:30 Comments rosuvastatin Allergy See Verified 02/07/17 15:30 Comments All Systems PM: A 10-system review of systems was performed and is negative for pertinent findings except as documented above in the HPI. - Constitutional Constitutional: no chills, no excessive sweating, no fatigue, no fever(s), no weakness - Cardiovascular Cardiovascular ROS IM: dyspnea, dyspnea on exertion, orthopnea, no chest pain, no diaphoresis, no edema, no lightheadedness - Respiratory Respiratory: cough, dyspnea on exertion, no dyspnea, no excessive phlegm production - Gastrointestinal Gastrointestinal: no abdominal pain, no constipation, no diarrhea, no nausea, no vomiting - Genitourinary Genitourinary ROS male: difficulty urinating, no dysuria, no urinary frequency, no urinary hesitancy, no urinary incontinence, no urinary urgency - Neurological Neurological ROS: no numbness, no tingling - Constitutional Vitals: Temp Pulse Resp BP Pulse Ox 97.6 F 73 16 115/61 95 02/07/17 20:39 02/07/17 20:39 02/07/17 20:39 02/07/17 20:39 02/07/17 20:39 Exam: Gen.: Vitals noted. No acute distress. AAOx3 HEENT: oropharynx clear, Normocephalic, atraumatic, MMM Neck: Mild JVD Cardiac: RRR, holosystolic murmur, +S1/S2 Pulmonary: Decreased breath sounds in right base, rales on right. no wheezes, or rhonchi, equal chest expansion Abdomen: soft, mild tenderness on surpapubic palpation, BS noted, no guarding Extremities: no BLE edema, nontender calf, no cyanosis or clubbing Neuro: A&Ox3, moves all extremities, no focal deficits Psych: Appropriate mood and behavior Internal Med - H&P Results - Labs CBC & Chem 7: 02/07/17 16:06 02/07/17 16:06
[2017-02-08] MEDS: *HR* HYDROcodone/Acet 5/325 mg TABLET PO PRN ×4 (00:42→21:35)
[2017-02-08 04:33] LABS: BUN/Creatinine Ratio 22 (6-26); Blood Urea Nitrogen 30 mg/dL (8-26); Calcium 9.2 mg/dL (8.6-10.8); Carbon Dioxide 27 mEq/L (19-29); Chloride 104 mEq/L (98-109); Glucose 121 mg/dL (70-99); Osmolality,Calculated 295 (280-300); Potassium 3.8 mEq/L (3.5-4.5); Sodium 139 mEq/L (136-145); eGFR For African Americans > 60 (> 60); eGFR For Non-African Americans 51 (> 60)
[2017-02-08 04:36] LABS: Basophils # 0.1 K/mcL (0.0-0.2); Basophils % 0.8 %; Eosinophils # 0.5 K/mcL (0.0-0.6); Eosinophils % 5.5 %; Hemoglobin 9.6 g/dL (12.9-16.9); Immature Granulocytes % 0.4 % (0-4); Lymphocytes # 1.6 K/mcL (0.6-4.6); Lymphocytes % 19.9 %; Mean Corpuscular Hemoglobin 28.7 pg (28.0-33.3); Mean Corpuscular Volume 92.8 fL (83.0-100.0); Mean Platelet Volume 10.5 fL (9.4-12.4); Monocytes # 0.7 K/mcL (0.0-1.3); Neutrophils # 5.4 K/mcL (1.6-8.9); Platelet Count 175 K/mcL (140-400); Red Blood Count 3.34 M/mcL (4.19-5.50); Red Cell Distribution Width 16.9 % (11.5-14.5); Segmented Neutrophils % 65.4 %
[2017-02-08] MEDS: *HR* Heparin 5,000 UNIT/ML VIAL SQ SCH ×2 (06:31→19:26)
[2017-02-08] MEDS: Insulin LISPRO 300 UNITS/3 ML VIAL SQ SCH ×3 (07:58→16:41)
[2017-02-08] MEDS ORDERED: Furosemide 40 MG/4 ML VIAL IVP SCH (09:00)
[2017-02-08] MEDS: Finasteride 5 MG TABLET PO SCH (10:15)
[2017-02-08] MEDS: Aspirin 81 MG TAB.CHEW PO SCH (10:15)
[2017-02-08] MEDS: Metoprolol XL (24 HR) Succ 25 MG TAB.ER.24H PO SCH (10:15)
[2017-02-08] MEDS: metOLazone 5 MG TABLET PO SCH (10:15)
[2017-02-08] MEDS: Pregabalin 25 MG CAPSULE PO SCH ×2 (10:16→21:35)
--- NOTE | 2017-02-08 14:25 | Internal Med Progress Note ---
Date of Encounter: 02/08/17 Time of Encounter: 12:15 - Assessment and plan (1) Acute on chronic systolic CHF (congestive heart failure) Current Visit: Yes Status: Acute Assessment and plan: Pt just recently discharged with same issue. States he has been following his fluid restriction but unsure of his meds. Will try Bumex tonight. Reassess in AM. Had thoracentesis last admission but currently not in respiratory distress. Has CKD - he is unsure of his kidney doctor. Considering need for cardiology and renal involvement. (2) CKD (chronic kidney disease) stage 3, GFR 30-59 ml/min Current Visit: Yes Status: Chronic Assessment and plan: Currently appears at baseline. Will need further renal involvement regarding future plans for fluid management. (3) Coronary artery disease Current Visit: Yes Status: Chronic Assessment and plan: Chronic issue. Continue current management and home meds. Qualifiers: Coronary Disease-Associated Artery/Lesion type: [place] artery [place] vs. transplanted heart: [place] heart Associated angina: without angina Qualified Code(s): I25.10 - Atherosclerotic heart disease of [place] coronary artery without angina pectoris (4) COPD (chronic obstructive pulmonary disease) Current Visit: Yes Status: Chronic Assessment and plan: Chronic issue. Continue home treatment. Qualifiers: COPD type: emphysema Emphysema type: unspecified Qualified Code(s): J43.9 - Emphysema, unspecified (5) Diabetes Current Visit: Yes Status: Chronic Assessment and plan: Continue home meds. Accuchecks and coverage. Qualifiers: Diabetes mellitus type: type 2 Diabetes mellitus complication status: with neurologic complications Diabetes mellitus complication detail: with polyneuropathy Diabetes mellitus chcf insulin use: with chcf use Qualified Code(s): E11.42 - Type 2 diabetes mellitus with diabetic polyneuropathy; Z79.4 - FDC (current) use of insulin; Z79.4 - terminal computer operator ( current) use of insulin; Z79.4 - terminal computer operator (current) use of insulin; Z79.4 - terminal computer operator (current) use of insulin (6) BPH (benign prostatic hyperplasia) Current Visit: Yes Status: Chronic Assessment and plan: Continue home Flomax. Qualifiers: Lower urinary tract symptom presence: symptoms present Lower urinary tract symptom detail: straining on urination Qualified Code(s): N40.1 - Benign prostatic hyperplasia with lower urinary tract symptoms; R39.16 - Straining to void; R39.16 - Straining to void - Subjective Interval history: Mr. Krishna is currently admitted for acute exac chronic systolic CHF. He remains moderate to high risk due to potential for worsening cardiac and respiratory status. Mr Krishna feels OK but thinks his weight has increased. He thinks there is to be a meeting this week with cardiology and renal to discuss his condition. He denies pain other than chronic back pain. No fever or chills. Still edematous. Breathing about the same. Does not feel he has put out much urine. - Constitutional Vitals: Temp Pulse Resp BP Pulse Ox 97.9 F 71 16 121/72 95 02/08/17 10:41 02/08/17 10:41 02/08/17 10:41 02/08/17 10:41 02/08/17 10:41 General appearance: Present: A&O X 3, pleasant, answers questions appropriately - Head Head exam: Present: normocephalic - Eye Eye exam: Present: EOMI, conjuntiva pink - ENT ENT exam: Present: mucous membranes dry - Respiratory Respiratory exam: Absent: rhonchi, wheezes Additional comments: Decreased breath sounds on R. Scattered rales on L. - Cardiovascular Cardiovascular exam: Present: distant heart sounds, RRR - GI/Abdominal GI/Abdominal exam: Present: normal bowel sounds, soft. Absent: tenderness - Extremities Exam Extremities exam: Present: pedal edema, warm. Absent: tenderness - Neurological Exam Neurological exam: Present: alert, oriented X3, no focal deficits - Skin Skin exam: Present: warm. Absent: rash Internal Medicine: Result - Labs CBC & Chem 7: 02/08/17 03:55 02/08/17 03:55 Consult Discharge Plan - Plan [facility]: [facility] [Primary Care Provider[facility] -
[2017-02-08] MEDS: Bumetanide 1 MG/4 ML VIAL IVP SCH (16:40)
[2017-02-09] MEDS: *HR* HYDROcodone/Acet 5/325 mg TABLET PO PRN ×2 (04:02→09:02)
[2017-02-09] MEDS: *HR* Heparin 5,000 UNIT/ML VIAL SQ SCH ×2 (04:03→18:01)
[2017-02-09 04:28] LABS: Hematocrit 31.6 % (37.5-50.1); Hemoglobin 9.5 g/dL (12.9-16.9); Mean Corpuscular HGB Conc 30.1 g/dL (31.6-35.5); Mean Corpuscular Hemoglobin 28.4 pg (28.0-33.3); Mean Corpuscular Volume 94.3 fL (83.0-100.0); Mean Platelet Volume 10.1 fL (9.4-12.4); Platelet Count 167 K/mcL (140-400); Red Blood Count 3.35 M/mcL (4.19-5.50); Red Cell Distribution Width 16.8 % (11.5-14.5)
[2017-02-09 04:47] LABS: Calcium 9.3 mg/dL (8.6-10.8); Magnesium 2.2 mg/dL (1.6-2.6); Potassium 4.2 mEq/L (3.5-4.5)
[2017-02-09] MEDS: Insulin LISPRO 300 UNITS/3 ML VIAL SQ SCH ×3 (08:39→17:59)
[2017-02-09] MEDS: Aspirin 81 MG TAB.CHEW PO SCH (08:41)
[2017-02-09] MEDS: Bumetanide 1 MG/4 ML VIAL IVP SCH ×2 (08:41→16:35)
[2017-02-09] MEDS: Pregabalin 25 MG CAPSULE PO SCH ×2 (08:41→20:34)
[2017-02-09] MEDS: Metoprolol XL (24 HR) Succ 25 MG TAB.ER.24H PO SCH (08:42)
[2017-02-09] MEDS: metOLazone 5 MG TABLET PO SCH (08:42)
[2017-02-09] MEDS: Finasteride 5 MG TABLET PO SCH (08:42)
--- NOTE | 2017-02-09 11:23 | Cardiology Consult Note ---
Date of Encounter: 02/09/17 Time of Encounter: 11:21 Assessment and Plan (1) Acute on chronic systolic CHF (congestive heart failure) Current Visit: Yes Status: Acute acute exacerbation of CHF most likely multifactorial contributing factors include HFrEF, COPD, CKD3, and BPH. Last echo 01/31/17 LVEF 30%. EKG no ischemic changes. trops neg 3x. BNP 744 on admission. self reported 12-14 lb weight gain in the last week, with a decrease in urine frequency. NYHA class 3 to 4. - continue fluid restriction <2 L/day, and NaCl restriction <2g/day. closely follow I/O + weight - Continue Metoprolol 25 mg BID, Lasix 40 TID, Dig 0.125, ASA81 - BPH, COPD and CKD3 managed per medical team (2) BPH (benign prostatic hyperplasia) Current Visit: Yes Status: Chronic per management of medicine team Qualifiers: Lower urinary tract symptom presence: symptoms present Lower urinary tract symptom detail: straining on urination Qualified Code(s): N40.1 - Benign prostatic hyperplasia with lower urinary tract symptoms; R39.16 - Straining to void; R39.16 - Straining to void (3) CKD (chronic kidney disease) stage 3, GFR 30-59 ml/min Current Visit: Yes Status: Chronic per management of medicine team (4) COPD (chronic obstructive pulmonary disease) Current Visit: Yes Status: Chronic per management of medicine team Qualifiers: COPD type: emphysema Emphysema type: unspecified Qualified Code(s): J43.9 - Emphysema, unspecified Discussion w patient/family: The assessment and plan as outlined above was discussed with the patient and/or family members who expressed understanding and agreement. All questions were answered. Thank you for involving us in the care of your patient. Please call with any questions. History of Present Illness Consult date: 02/09/17 Requesting physician: David Ferguson Consult reason: acute exacerbation of CHF Chief complaint: shortness of breath History of present illness: Mr. Krishna is a 81 year old male day 3 of admission here for Shortness of breath, and 12 lb weight gain in the last week w/ hx of HFrEF w/ ventricular pacemaker, BPH, CKD3, COPD, T2DM, CAD, afib, and a recent discharge for similar symptoms in which his lasix was increased to 40 TID and thoracentesis removed 1.8 L. Patient reports these symptoms started about a week ago in which he was hospitalized at [place]. Upon discharge on 02/04/17, patient reports improvement for 1 day, before his symptoms worsened again. He has had 1-2 urinations a day since discharge. On admission patient was Short of breath, increased swelling, and patient was very concerned about 12-14 lb weight gain in the last week. Patient has increased shortness of breath on exertion, and has woken up multiple times in the middle of the night trying to catch his breath. He was put on oxygen on admission, and has stated that it has improved his SOB. He does not use O2 at home. Patient reports being diagnosed with CHF in 1974, Bypass in 1986, and Pacemaker in 1999. PAtient denies trouble laying flat, fluttering in his chest, sweating, light headness. Past Med Surg Social Fam HX - Past Medical History Medical history: atrial fibrillation, CHF, COPD, diabetes, hyperlipidemia, renal disease Psychiatric history: no psych history - Past Surgical History Surgical History: pacemaker/AICD - Social History Smoking Status: Former smoker Smokeless Tobacco Status: No Alcohol use: none Drug use: none - Family History Mother History Unknown: Yes Living Status: Hx Family Cardiac Disorders: Yes (CVA) Hx Family Respiratory Disorders: No Hx Family Cancer: No Hx Family GI Disorders: No Hx Family Endocrine Disorder: No Hx Family Neuromuscular Disorders: No Hx Family Neurologic Disorders: No Hx Family HEENT Disorders: No Hx Family Autoimmune Disorders: No Father History Unknown: Yes Living Status: Hx Family Cardiac Disorders: Yes Brother History Unknown: Yes Hx Family Cardiac Disorders: No Hx Family Respiratory Disorders: No Hx Family Cancer: Yes (Pancreatic) Hx Family GI Disorders: No Hx Family Endocrine Disorder: No Hx Family Neuromuscular Disorders: No Hx Family Neurologic Disorders: No Hx Family HEENT Disorders: No Hx Family Autoimmune Disorders: No Medications and Allergies Albuterol Sulfate [Albuterol Inhaler] 2 puff IH BID PRN 01/18/16 [History] Allopurinol [Zyloprim 300 MG] 300 mg PO DAILY 01/18/16 [History] Aspirin 162 mg PO DAILY 01/18/16 [History] Calcium Carbonate/Vitamin D3 [Calcium 500-Vit D3 200 Caplet] 1 tab PO BID [History] Cholecalciferol (D-3) [Vitamin D] 4,000 unit PO DAILY 01/18/16 [History] Digoxin [Lanoxin] 0.125 mg PO MOWEFR 01/18/16 [History] Docusate Sodium [Dok] 100 mg PO BID 01/18/16 [History] Ferrous Sulfate 325 mg PO BID 01/18/16 [History] Nitroglycerin [Nitrostat] 0.4 mg SL Q5M PRN 01/18/16 [History] Sennosides [Senna] 8.6 mg PO TID 01/18/16 [History] Betamethasone Dipropionate 1 appl TP TID 11/25/16 [History] Insulin Glargine,Hum.rec.anlog [Lantus Solostar] 30 unit SQ QAM 11/25/16 [ History] Ketoconazole 2% CRM [Nizoral Cream] 1 appl TP BID 11/25/16 [History] Lidocaine Patch [Lidoderm 5% patch] 2 patch TP DAILY 11/25/16 [History] Finasteride [Proscar] 5 mg PO DAILY 11/29/16 [History] Furosemide [Lasix] 40 mg PO BID 11/29/16 [History] Pregabalin [Lyrica] 25 mg PO BID 11/29/16 [History] Tamsulosin HCl [Flomax] 0.4 mg PO HS 11/29/16 [History] metOLazone [Zaroxolyn] 5 mg PO DAILY #30 tab 12/03/16 [Rx] Melatonin/Pyridoxine HCl (B6) [Melatonin 3 mg Tablet] 9 mg PO HS PRN 01/31/17 [ History] Metoprolol Succinate 25 mg PO DAILY 01/31/17 [History] Nut.tx.gluc.intoler,Lac-Fr,Soy [Glucerna] 237 ml PO DAILY 01/31/17 [History] Oxycodone HCl [Oxaydo] 2.5 mg PO TID PRN 01/31/17 [History] Pantoprazole Sodium [Protonix] 40 mg PO DAILY 02/08/17 [History] 3 Allergy/AdvReac Type Severity Reaction Status Date / Time atorvastatin Allergy See Verified 02/07/17 15:30 Comments rosuvastatin Allergy See Verified 02/07/17 15:30 Comments All Systems Review: A 10-system review of systems was performed and is negative for pertinent findings except as documented above in the HPI. - Constitutional Constitutional: weight gain, no anorexia, no chills, no daytime sleepiness, no fatigue, no fever(s), no headache(s), no night sweats, no snoring, no stops breathing during sleep, no weight loss - EENT Eyes: no blurred vision, no loss of vision - Cardiovascular Cardiovascular: as per HPI - Respiratory Respiratory: cough, dyspnea, no wheezing - Gastrointestinal Gastrointestinal: no abdominal pain, no diarrhea, no hematemesis, no hematochezia, no melena, no nausea - Integumentary Integumentary: no erythema, no rash, no unusual bruising - Neurological Neurological: no abnormal speech, no dizziness, no focal weakness, no loss of vision, no memory loss - Psychiatric Psychiatric: no anxiety, no depression, no hallucinations, no panic attacks Physical Examination Vital Signs, Last 4 Hours Temp Pulse Resp BP Pulse Ox 02/09/17 10:22 97.3 F L 79 16 110/65 98 General: Conversant, No Apparent Distress HEENT: Atraumatic, Normocephaly, Mucus Membranes Moist Neck: Normal carotid pulses, Other (JVD present.) Cardiac: Reg Rate and Rhythm, Normal S1 and S2, No Murmur Lungs: No Wheeze, Rales, Rhonchi, Other (decreased breath sounds on right lower lung) Neuro: Alert and responsive, No focal deficits noted Abdomen: Soft, Non-Tender, Other (no hepatosplenomegaly) Skin: No rashes noted on visualized skin Musculoskeletal: No Chest Wall Tenderness Extremities: No Clubbing, No Cyanosis, Normal Pulses, Other (Bilateral Lower Extremity 1/4) Results 02/09/17 04:08 02/09/17 04:08 Lab Results 02/09/17 02/09/17 04:08 04:08 WBC 7.4 Hgb 9.5 L Hct 31.6 L Plt Count 167 Sodium 141 Potassium 4.2 Chloride 102 Carbon Dioxide 29 BUN 32 H Creatinine 1.62 H Glucose 133 H Calcium 9.3 Magnesium 2.2 Consult Discharge Plan - Plan [facility]: [facility] [Primary Care Provider] -
[2017-02-09] MEDS: *HR* OxyCODONE Immed Rel 5 MG TABLET PO PRN ×2 (16:36→23:03)
--- NOTE | 2017-02-09 17:04 | Electrocardiograph Report ---
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
--- NOTE | 2017-02-09 17:29 | Internal Med Progress Note ---
Date of Encounter: 02/09/17 Time of Encounter: 16:45 - Assessment and plan (1) Acute on chronic systolic CHF (congestive heart failure) Current Visit: Yes Status: Acute Assessment and plan: Has had some diuresis overnight. Fluid restriction. Will continue current diuresis and diet management. Hopefully will be improved enough for discharge in next 1-2 days. (2) CKD (chronic kidney disease) stage 3, GFR 30-59 ml/min Current Visit: Yes Status: Chronic Assessment and plan: Slight increase in creatinine today. Will recheck tomorrow in light of diuresis. (3) Coronary artery disease Current Visit: Yes Status: Chronic Assessment and plan: Chronic issue. Continue current management and home meds. Qualifiers: Coronary Disease-Associated Artery/Lesion type: [place] artery [place] vs. transplanted heart: [place] heart Associated angina: without angina Qualified Code(s): I25.10 - Atherosclerotic heart disease of [place] coronary artery without angina pectoris (4) COPD (chronic obstructive pulmonary disease) Current Visit: Yes Status: Chronic Assessment and plan: Chronic issue. Continue home treatment. Qualifiers: COPD type: emphysema Emphysema type: unspecified Qualified Code(s): J43.9 - Emphysema, unspecified (5) Diabetes Current Visit: Yes Status: Chronic Assessment and plan: Continue home meds. Accuchecks and coverage. Qualifiers: Diabetes mellitus type: type 2 Diabetes mellitus complication status: with neurologic complications Diabetes mellitus complication detail: with polyneuropathy Diabetes mellitus moth exterminator insulin use: with custodial use Qualified Code(s): E11.42 - Type 2 diabetes mellitus with diabetic polyneuropathy; Z79.4 - snf (current) use of insulin; Z79.4 - terminal operator ( current) use of insulin; Z79.4 - terminal operator (current) use of insulin; Z79.4 - terminal operator (current) use of insulin (6) BPH (benign prostatic hyperplasia) Current Visit: Yes Status: Chronic Assessment and plan: Continue home Flomax. Qualifiers: Lower urinary tract symptom presence: symptoms present Lower urinary tract symptom detail: straining on urination Qualified Code(s): N40.1 - Benign prostatic hyperplasia with lower urinary tract symptoms; R39.16 - Straining to void; R39.16 - Straining to void - Subjective Interval history: Mr. Krishna is currently admitted for acute exac chronic systolic CHF. He remains moderate to high risk due to potential for worsening cardiac and respiratory status. Mr Krishna says he is doing better overall. He has been diuresing some. No CP. No fever or chills. Slept OK last night. No GI issues. Appreciate cardiology input and treatment. - Constitutional Vitals: Temp Pulse Resp BP Pulse Ox 97.5 F L 71 14 101/54 95 02/09/17 15:00 02/09/17 15:00 02/09/17 15:00 02/09/17 15:00 02/09/17 15:00 General appearance: Present: A&O X 3, pleasant, answers questions appropriately - Head Head exam: Present: normocephalic - Eye Eye exam: Present: conjuntiva pink - ENT ENT exam: Present: mucous membranes dry - Respiratory Respiratory exam: Present: rales. Absent: rhonchi, wheezes - Cardiovascular Cardiovascular exam: Present: distant heart sounds, RRR - GI/Abdominal GI/Abdominal exam: Present: soft. Absent: tenderness - Extremities Exam Extremities exam: Present: pedal edema, warm. Absent: tenderness - Neurological Exam Neurological exam: Present: alert, oriented X3, no focal deficits Internal Medicine: Result - Labs CBC & Chem 7: 02/09/17 04:08 02/09/17 04:08 Labs: Short CBC 02/09/17 Range/Units 04:08 WBC 7.4 (4.3-11.1) K/mcL Hgb 9.5 L (12.9-16.9) g/dL Hct 31.6 L (37.5-50.1) % Plt Count 167 (140-400) K/mcL [facility] 02/09/17 04:08 Sodium 141 Potassium 4.2 Chloride 102 Carbon Dioxide 29 BUN 32 H Creatinine 1.62 H Glucose 133 H Calcium 9.3 Consult Discharge Plan - Plan [facility]errals: [facility] [Primary Care Provider] -
[2017-02-09] MEDS ORDERED: *HR* Digoxin 0.125 MG TABLET PO SCH (22:58)
[2017-02-10 04:18] LABS: Hematocrit 30.6 % (37.5-50.1); Hemoglobin 9.4 g/dL (12.9-16.9); Mean Corpuscular HGB Conc 30.7 g/dL (31.6-35.5); Mean Corpuscular Hemoglobin 28.5 pg (28.0-33.3); Mean Corpuscular Volume 92.7 fL (83.0-100.0); Mean Platelet Volume 10.6 fL (9.4-12.4); Platelet Count 169 K/mcL (140-400); Red Cell Distribution Width 16.5 % (11.5-14.5)
[2017-02-10 04:33] LABS: Calcium 9.2 mg/dL (8.6-10.8); Magnesium 2.1 mg/dL (1.6-2.6)
[2017-02-10] MEDS: *HR* OxyCODONE Immed Rel 5 MG TABLET PO PRN (06:16)
[2017-02-10] MEDS: *HR* Heparin 5,000 UNIT/ML VIAL SQ SCH (06:17)
[2017-02-10] MEDS: Insulin LISPRO 300 UNITS/3 ML VIAL SQ SCH ×2 (08:39→12:27)
[2017-02-10] MEDS: Metoprolol XL (24 HR) Succ 25 MG TAB.ER.24H PO SCH (08:49)
[2017-02-10] MEDS: Bumetanide 1 MG/4 ML VIAL IVP SCH (08:49)
[2017-02-10] MEDS: Finasteride 5 MG TABLET PO SCH (08:49)
[2017-02-10] MEDS: metOLazone 5 MG TABLET PO SCH (08:49)
[2017-02-10] MEDS: Pregabalin 25 MG CAPSULE PO SCH (08:50)
[2017-02-10] MEDS: Aspirin 81 MG TAB.CHEW PO SCH (08:50)
--- NOTE | 2017-02-10 09:51 | Cardiology Progress Note ---
Date of Encounter: 02/10/17 Time of Encounter: 09:35 Assessment and Plan (1) Acute on chronic systolic CHF (congestive heart failure) Current Visit: Yes Status: Acute acute exacerbation of systolic CHF (HFrEF) most likely multifactorial contributing factors include COPD, CKD3, and BPH. Last echo 01/31/17 LVEF 30%. EKG no ischemic changes. trops neg 3x. BNP 744 on admission. self reported 12-14 lb weight gain in the last week, with a decrease in urine frequency. NYHA class 3 to 4. - Recommend starting patient on Lisinopril - Cardiology will sign off - continue fluid restriction <2 L/day, and NaCl restriction <2g/day. closely follow I/O + weight. - educated patient on remaining strict on Fluid restriction and NaCl - Continue Metoprolol 25 mg BID, Lasix 40 TID, Dig 0.125, ASA81 - BPH, COPD and CKD3 managed per medical team (2) BPH (benign prostatic hyperplasia) Current Visit: Yes Status: Chronic per management of medicine team Qualifiers: Lower urinary tract symptom presence: symptoms present Lower urinary tract symptom detail: straining on urination Qualified Code(s): N40.1 - Benign prostatic hyperplasia with lower urinary tract symptoms; R39.16 - Straining to void; R39.16 - Straining to void (3) CKD (chronic kidney disease) stage 3, GFR 30-59 ml/min Current Visit: Yes Status: Chronic per management of medicine team (4) COPD (chronic obstructive pulmonary disease) Current Visit: Yes Status: Chronic per management of medicine team Qualifiers: COPD type: emphysema Emphysema type: unspecified Qualified Code(s): J43.9 - Emphysema, unspecified Discussion w patient/family: The assessment and plan as outlined above was discussed with the patient and/or family members who expressed understanding and agreement. All questions were answered. Thank you for involving us in the care of your patient. Please call with any questions. Subjective Principal diagnosis: Acute on chronic systolic CHF (HFrEF) Interval history: Mr Krishna is a 81 yo male who presented with increasing SOB on exertion, Orthopnea, and PND with a Hx of CAD, ischemic cardiomyopathy, biventricular defibrillator. Patient reports feeling much better today, and feeling less swollen. He states that he continues to do well on [place] O2. He was started on IV diuresis yesterday , and he states that he "pee'd quite a bit" but hasn't pee'd today yet. Patient had multiple empty drink containers on his food tray including cranberry juice, milk, 2 cups of coffee. Objective Vital Signs, Last 4 Hours Temp Pulse Resp BP Pulse Ox 02/10/17 08:05 97.6 F 69 18 107/54 99 General: Conversant, No Apparent Distress HEENT: Atraumatic, Normocephaly, Mucus Membranes Moist Neck: Normal carotid pulses, Other (JVD present, decreased from yesterday) Cardiac: Reg Rate and Rhythm, Normal S1 and S2, No Murmur Lungs: No Wheeze, Rales, Rhonchi, Other (decreased breath sounds in right lower lung) Neuro: Alert and responsive, No focal deficits noted Abdomen: Soft, Non-Tender Skin: No rashes noted on visualized skin Musculoskeletal: No Chest Wall Tenderness Extremities: No Clubbing, No Cyanosis, No Edema, Normal Pulses Results 02/10/17 03:23 02/10/17 03:23 Lab Results 02/10/17 02/10/17 03:23 03:23 WBC 7.6 Hgb 9.4 L Hct 30.6 L Plt Count 169 Sodium 141 Potassium 4.0 Chloride 102 Carbon Dioxide 28 BUN 37 H Creatinine 1.43 H Glucose 121 H Calcium 9.2 Magnesium 2.1 Consult Discharge Plan - Plan [facility]errals: [facility] [Primary Care Provider] -
[2017-02-10 11:05] VITALS: BP 105/53
[2017-02-10] MEDS ORDERED: *HR* OxyCODONE Immed Rel 5 MG TABLET PO PRN (12:03)
--- NOTE | 2017-02-10 12:54 | Discharge Summary ---
Date of Encounter: 02/10/17 Time of Encounter: 09:00 - Discharge Diagnosis (1) Acute on chronic systolic CHF (congestive heart failure) Priority: Primary Status: Acute (2) BPH (benign prostatic hyperplasia) Priority: Secondary Status: Chronic Qualifiers: Lower urinary tract symptom presence: symptoms present Lower urinary tract symptom detail: straining on urination Qualified Code(s): N40.1 - Benign prostatic hyperplasia with lower urinary tract symptoms; R39.16 - Straining to void; R39.16 - Straining to void (3) CKD (chronic kidney disease) stage 3, GFR 30-59 ml/min Priority: Secondary Status: Chronic (4) COPD (chronic obstructive pulmonary disease) Priority: Secondary Status: Chronic Qualifiers: COPD type: emphysema Emphysema type: unspecified Qualified Code(s): J43.9 - Emphysema, unspecified (5) Coronary artery disease Priority: Secondary Status: Chronic Qualifiers: Coronary Disease-Associated Artery/Lesion type: [place] artery [place] vs. transplanted heart: [place] heart Associated angina: without angina Qualified Code(s): I25.10 - Atherosclerotic heart disease of [place] coronary artery without angina pectoris (6) Diabetes Priority: Secondary Status: Chronic Qualifiers: Diabetes mellitus type: type 2 Diabetes mellitus complication status: with neurologic complications Diabetes mellitus complication detail: with polyneuropathy Diabetes mellitus intermediate teacher insulin use: with senior care use Qualified Code(s): E11.42 - Type 2 diabetes mellitus with diabetic polyneuropathy; Z79.4 - termite treater helper (current) use of insulin; Z79.4 - skilled nursing ( current) use of insulin; Z79.4 - termite treater helper (current) use of insulin; Z79.4 - skilled nursing (current) use of insulin - Discharge Medications Prescriptions: Furosemide [Lasix] 40 mg PO TID #30 tablet Lisinopril [Zestril] 5 mg PO DAILY #30 tablet Home Medications: Albuterol Sulfate [Albuterol Inhaler] 2 puff IH BID PRN 01/18/16 [History] Allopurinol [Zyloprim 300 MG] 300 mg PO DAILY 01/18/16 [History] Aspirin 162 mg PO DAILY 01/18/16 [History] Calcium Carbonate/Vitamin D3 [Calcium 500-Vit D3 200 Caplet] 1 tab PO BID [History] Cholecalciferol (D-3) [Vitamin D] 4,000 unit PO DAILY 01/18/16 [History] Digoxin [Lanoxin] 0.125 mg PO MOWEFR 01/18/16 [History] Docusate Sodium [Dok] 100 mg PO BID 01/18/16 [History] Ferrous Sulfate 325 mg PO BID 01/18/16 [History] Nitroglycerin [Nitrostat] 0.4 mg SL Q5M PRN 01/18/16 [History] Sennosides [Senna] 8.6 mg PO TID 01/18/16 [History] Betamethasone Dipropionate 1 appl TP TID 11/25/16 [History] Insulin Glargine,Hum.rec.anlog [Lantus Solostar] 30 unit SQ QAM 11/25/16 [ History] Ketoconazole 2% CRM [Nizoral Cream] 1 appl TP BID 11/25/16 [History] Lidocaine Patch [Lidoderm 5% patch] 2 patch TP DAILY 11/25/16 [History] Finasteride [Proscar] 5 mg PO DAILY 11/29/16 [History] Pregabalin [Lyrica] 25 mg PO BID 11/29/16 [History] Tamsulosin HCl [Flomax] 0.4 mg PO HS 11/29/16 [History] metOLazone [Zaroxolyn] 5 mg PO DAILY #30 tab 12/03/16 [Rx] Melatonin/Pyridoxine HCl (B6) [Melatonin 3 mg Tablet] 9 mg PO HS PRN 01/31/17 [ History] Metoprolol Succinate 25 mg PO DAILY 01/31/17 [History] Nut.tx.gluc.intoler,Lac-Fr,Soy [Glucerna] 237 ml PO DAILY 01/31/17 [History] Oxycodone HCl [Oxaydo] 2.5 mg PO TID PRN 01/31/17 [History] Pantoprazole Sodium [Protonix] 40 mg PO DAILY 02/08/17 [History] Furosemide [Lasix] 40 mg PO TID #30 tablet 02/10/17 [Rx] Lisinopril [Zestril] 5 mg PO DAILY #30 tablet 02/10/17 [Rx] Allergies/Adverse Reactions: 3 Allergy/AdvReac Type Severity Reaction Status Date / Time atorvastatin Allergy See Verified 02/07/17 15:30 Comments rosuvastatin Allergy See Verified 02/07/17 15:30 Comments Date of admission: 02/08/17 05:34 [facility] physician[facility] Consults: 02/09/17 09:58 Consult to Cardiology [CONS] Routine Comment: Consulting Provider: Franchesca Mirza Reason for Consult: Readmit CHF Time Notified: 10:00 Call Completed: Yes Discharging clinician: Onur Cuellar Anticipated date of discharge: 02/10/17 - Patient Status Disposition: Home Health Service Condition: Good Functional capacity at discharge: independent ambulation Overall status at discharge: patient is progressing back to baseline - Discharge Instructions Instructions: Heart Failure (DC), Diabetes Mellitus Type 2 in Adults (DC), Chronic Obstructive Pulmonary Disease (DC) [facility] With: [facility] [Primary Care Provider[facility] - (Home based care out of [place]. They will call with the patient appt., and I will direct them to call the patient at home. Thank you) - Diet and Activity Activity: increase activity as tolerated Diet: diabetic diet, low fat, low cholesterol, low salt diet, other (Fluid restriction to 1.5 L per day) Hospital course: Mr. Krishna is a 81 year old male patient with history of congestive heart failure, diabetes mellitus type 2, chronic kidney disease, COPD, coronary artery disease who presented to the ER with complaints He was diagnosed with acute on chronic congestive heart failure and was started on treatment for this with intravenous Lasix. His urine output was also closely monitored along with his renal function. Cardiology was also consulted for their recommendations. Patient has had recurrent hospitalizations within the past 2 weeks likely due to noncompliance with salt and fluid restriction. He was placed on Zaroxolyn along with fluid restriction and Lasix per cardiology recommendations. His symptoms have since improved and now is doing much better. He is no longer requiring O2 supplementation and is stable for discharge back home. He will follow up with cardiology after discharge for further management of his heart failure. He will be discharged on Lasix 40 mg by mouth 3 times a day along with Zaroxolyn. He is also being started on lisinopril per cardiology recommendations. He will also be provided with home health through the [place]. - Time Spent with Patient Total time spent providing and/or coordinating discharge services: Greater than 30 minutes (35 min) - Constitutional Vitals: Temp Pulse Resp BP Pulse Ox 97.4 F L 69 18 105/53 94 10/31/17 10:55 02/10/17 10:55 02/10/17 10:55 02/10/17 10:55 02/10/17 10:55 General appearance: Present: A&O X 3, pleasant, answers questions appropriately - Neck Neck exam general surgery: Present: supple, trachea midline. Absent: lymphadenopathy - Respiratory Respiratory exam: Present: CTAB. Absent: accessory muscle use, rales, rhonchi, wheezes - Cardiovascular Cardiovascular exam: Present: RRR, +S1, +S2. Absent: diastolic murmur, gallop, rubs, systolic murmur - GI/Abdominal GI/Abdominal exam: Present: normal bowel sounds, soft, no peritoneal signs. Absent: distended, tenderness - Extremities Exam Extremities exam: Present: pedal edema, warm, radial pulses palpable and symmetrical. Absent: calf tenderness, cyanotic - Neurological Exam Neurological exam: Present: alert, oriented X3, no focal deficits. Absent: facial droop, speech deficit
--- NOTE | 2017-02-10 12:59 | Physician Discharge Referral ---
Home Health/Hosp Referral Info Transfer to: Home Health Provider in Charge Post Discharge: PCP - Diagnosis (1) Acute on chronic systolic CHF (congestive heart failure) Priority: Primary Status: Acute (2) BPH (benign prostatic hyperplasia) Priority: Secondary Status: Chronic (3) CKD (chronic kidney disease) stage 3, GFR 30-59 ml/min Priority: Secondary Status: Chronic (4) COPD (chronic obstructive pulmonary disease) Priority: Secondary Status: Chronic (5) Coronary artery disease Priority: Secondary Status: Chronic (6) Diabetes Priority: Secondary Status: Chronic - Respiratory Orders Smoking Cessation: Smoking cessation has been advised. For more information, call the [place] Tobacco Quit Line at 9-747-AVTT-NOW. - Diet/Nutrition Diet/Nutrition Orders: No Added Salt (NAVEED), Cardiac, No Concentrated Sweets ( daibetic) Diet/Nutrition: List: Fluid restriction to 1.5 L per day. Sodium restriction to less than 2 g per day - Activity Activity Orders: Up ad adelso - Services Needed Following services are medically necessary services: Nursing, Physical Therapy, Occupational Therapy Home Care Orders: Please check basic panel on 02/13/2017 - Transfer Medications Prescriptions: Furosemide [Lasix] 40 mg PO TID #30 tablet Lisinopril [Zestril] 5 mg PO DAILY #30 tablet Home Medications: Albuterol Sulfate [Albuterol Inhaler] 2 puff IH BID PRN 01/18/16 [History] Allopurinol [Zyloprim 300 MG] 300 mg PO DAILY 01/18/16 [History] Aspirin 162 mg PO DAILY 01/18/16 [History] Calcium Carbonate/Vitamin D3 [Calcium 500-Vit D3 200 Caplet] 1 tab PO BID [History] Cholecalciferol (D-3) [Vitamin D] 4,000 unit PO DAILY 01/18/16 [History] Digoxin [Lanoxin] 0.125 mg PO MOWEFR 01/18/16 [History] Docusate Sodium [Dok] 100 mg PO BID 01/18/16 [History] Ferrous Sulfate 325 mg PO BID 01/18/16 [History] Nitroglycerin [Nitrostat] 0.4 mg SL Q5M PRN 01/18/16 [History] Sennosides [Senna] 8.6 mg PO TID 01/18/16 [History] Betamethasone Dipropionate 1 appl TP TID 11/25/16 [History] Insulin Glargine,Hum.rec.anlog [Lantus Solostar] 30 unit SQ QAM 11/25/16 [ History] Ketoconazole 2% CRM [Nizoral Cream] 1 appl TP BID 11/25/16 [History] Lidocaine Patch [Lidoderm 5% patch] 2 patch TP DAILY 11/25/16 [History] Finasteride [Proscar] 5 mg PO DAILY 11/29/16 [History] Pregabalin [Lyrica] 25 mg PO BID 11/29/16 [History] Tamsulosin HCl [Flomax] 0.4 mg PO HS 11/29/16 [History] metOLazone [Zaroxolyn] 5 mg PO DAILY #30 tab 12/03/16 [Rx] Melatonin/Pyridoxine HCl (B6) [Melatonin 3 mg Tablet] 9 mg PO HS PRN 01/31/17 [ History] Metoprolol Succinate 25 mg PO DAILY 01/31/17 [History] Nut.tx.gluc.intoler,Lac-Fr,Soy [Glucerna] 237 ml PO DAILY 01/31/17 [History] Oxycodone HCl [Oxaydo] 2.5 mg PO TID PRN 01/31/17 [History] Pantoprazole Sodium [Protonix] 40 mg PO DAILY 02/08/17 [History] Furosemide [Lasix] 40 mg PO TID #30 tablet 02/10/17 [Rx] Lisinopril [Zestril] 5 mg PO DAILY #30 tablet 02/10/17 [Rx] Allergies/Adverse Reactions: 3 Allergy/AdvReac Type Severity Reaction Status Date / Time atorvastatin Allergy See Verified 02/07/17 15:30 Comments rosuvastatin Allergy See Verified 02/07/17 15:30 Comments Certification: Further, I certify that my clinical findings support that this patient is homebound (i.e. absences from home require considerable and taxing effort and are for medical reasons or jew services or infrequently or short duration when for other reasons) because: Homebound Reason: Severity of cardiac or pulmonary status limits activity tolerance Attestation: My signature below is to certify that this patient is under my care and that I, or nurse practitioner, or a physician's pastoral assistant working with me, has a face-to -face encounter with this patient.
[2017-02-10] MEDS ORDERED: Insulin LISPRO 300 UNITS/3 ML VIAL SQ SCH (21:00)
== END 2017-02-10 15:58 | disposition home health service (06) | DRG 293 ==
LOC: 3ANU 15:25 → EMEROO 15:25 → 3ANU 19:21 → SUATTDRO 02-08 05:34
PROVIDERS: ADMIT Nurse Practitioner Family; ATTEND Internal Medicine

== ENCOUNTER 2017-02-24 04:15 | Inpatient (IN) ==
[2017-02-24] MEDS ORDERED: Aspirin 81 MG TAB.CHEW PO ONE (04:29)
--- NOTE | 2017-02-24 04:47 | Emergency Department Note ---
START Narrative - START START: I examined this patient and my medical decision-making was reviewed with the Resident Physician. I agree with the documented findings, disposition and treatment plan as described except to the extent set forth below. 81 year old shawn presnte to the eD via POV and family at bedside and state that he woke up this morning and tried to uriante and then started to experience chest pain and shortness of breath. PAtient has a pacemaker and statse that his chest pain has improved. He typically has low blood pressure and was on lisinopril which caused him to be hypotensive. Atinet is currently 102/90s. We will do a cardiopulmonary workup and likely admit to medicine.
[2017-02-24 04:52] LABS: Basophils # 0.1 K/mcL (0.0-0.2); Basophils % 0.6 %; Eosinophils # 0.4 K/mcL (0.0-0.6); Eosinophils % 3.6 %; Hematocrit 33.8 % (37.5-50.1); Hemoglobin 10.5 g/dL (12.9-16.9); Immature Granulocytes % 0.4 % (0-4); Lymphocytes # 2.2 K/mcL (0.6-4.6); Lymphocytes % 22.2 %; Mean Corpuscular HGB Conc 31.1 g/dL (31.6-35.5); Mean Corpuscular Hemoglobin 28.6 pg (28.0-33.3); Mean Corpuscular Volume 92.1 fL (83.0-100.0); Monocytes # 0.7 K/mcL (0.0-1.3); Neutrophils # 6.7 K/mcL (1.6-8.9); Platelet Count 186 K/mcL (140-400); Red Blood Count 3.67 M/mcL (4.19-5.50); Red Cell Distribution Width 16.2 % (11.5-14.5); Segmented Neutrophils % 66.2 %
[2017-02-24 04:58] LABS: INR 1.1; Prothrombin Time 12.3 Seconds (9.4-12.1)
[2017-02-24 05:04] LABS: Calcium 9.1 mg/dL (8.6-10.8); Potassium 4.3 mEq/L (3.5-4.5)
--- NOTE | 2017-02-24 06:01 | Emergency Department Note ---
Disposition Clinical Impression: Chest pain Qualifiers: Chest pain type: unspecified Qualified Code(s): R07.9 - Chest pain, unspecified Disposition: Admitted As Inpatient Condition: Good [facility]errals: [facility] [Primary Care Provider[facility] - Forms: ED Satisfaction Letter Chest Pain HPI - General Chief Complaint: ED Chest Pain Stated Complaint: CP/SOB/Constipation Time Seen by Provider: 02/24/17 04:16 Source: family Limitations: no limitations Vital Signs Reviewed: Yes Nursing Notes Reviewed: Yes - History of Present Illness HPI Narrative: Patient here for evaluation of chest pain that woke him from his sleep. Patient describes his pain as "angina". Similar to previous episodes of chest pain. Radiates to left shoulder. Better upon arrival to the emergency department. EKG does not show any significant ST elevations or depressions. Ventricularly paced. 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 Patient has not had any recent prodrome symptoms. Patient is comfortable resting in the cot at this point. Initial labs and x- ray will be obtained. Patient will likely need admission for further monitoring. Severity scale (1-10): 0 - Related Data Home Medications Medication Instructions Recorded Confirmed Albuterol Sulfate [Albuterol 2 puff IH BID PRN 01/18/16 02/08/17 Inhaler] Allopurinol [Zyloprim 300 MG] 300 mg PO DAILY 01/18/16 02/08/17 Aspirin 162 mg PO DAILY 01/18/16 02/08/17 Calcium Carbonate/Vitamin D3 1 tab PO BID 01/18/16 02/08/17 [Calcium 500-Vit D3 200 Caplet] Cholecalciferol (D-3) [Vitamin D] 4,000 unit PO DAILY 01/18/16 02/08/17 Digoxin [Lanoxin] 0.125 mg PO MOWEFR 01/18/16 02/08/17 Docusate Sodium [Dok] 100 mg PO BID 01/18/16 02/08/17 Ferrous Sulfate 325 mg PO BID 01/18/16 02/08/17 Nitroglycerin [Nitrostat] 0.4 mg SL Q5M PRN 01/18/16 02/08/17 Sennosides [Senna] 8.6 mg PO TID 01/18/16 02/08/17 Betamethasone Dipropionate 1 appl TP TID 11/25/16 02/08/17 Insulin Glargine,Hum.rec.anlog 30 unit SQ QAM 11/25/16 02/08/17 [Lantus Solostar] Ketoconazole 2% CRM [Nizoral Cream] 1 appl TP BID 11/25/16 02/08/17 Lidocaine Patch [Lidoderm 5% patch] 2 patch TP DAILY 11/25/16 02/08/17 Finasteride [Proscar] 5 mg PO DAILY 11/29/16 02/08/17 Pregabalin [Lyrica] 25 mg PO BID 11/29/16 02/08/17 Tamsulosin HCl [Flomax] 0.4 mg PO HS 11/29/16 02/08/17 Melatonin/Pyridoxine HCl (B6) 9 mg PO HS PRN 01/31/17 02/08/17 [Melatonin 3 mg Tablet] Metoprolol Succinate 25 mg PO DAILY 01/31/17 02/08/17 Nut.tx.gluc.intoler,Lac-Fr,Soy 237 ml PO DAILY 01/31/17 02/08/17 [Glucerna] Oxycodone HCl [Oxaydo] 2.5 mg PO TID PRN 01/31/17 02/08/17 Pantoprazole Sodium [Protonix] 40 mg PO DAILY 02/08/17 02/08/17 Previous Rx's Medication Instructions Recorded metOLazone [Zaroxolyn] 5 mg PO DAILY #30 tab 12/03/16 Clopidogrel [Plavix] 75 mg PO DAILY #30 tablet 02/10/17 Furosemide [Lasix] 40 mg PO TID #30 tablet 02/10/17 Lisinopril [Zestril] 5 mg PO DAILY #30 tablet 02/10/17 Allergies Allergy/AdvReac Type Severity Reaction Status Date / Time atorvastatin Allergy See Verified 02/07/17 15:30 Comments rosuvastatin Allergy See Verified 02/07/17 15:30 Comments Review of Systems: CONSTITUTIONAL: No weight loss, fever, chills, weakness or fatigue. HEENT: Eyes: No visual changes. Ears, Nose, Throat: No hearing loss, difficulty talking or unable to swallow. SKIN: No rash or itching. CARDIOVASCULAR: Chest pain RESPIRATORY: No shortness of breath, cough or sputum. GASTROINTESTINAL: No anorexia, nausea, vomiting or diarrhea. No abdominal pain or blood. GENITOURINARY: No burning on urination or hematuria. NEUROLOGICAL: No headache, dizziness, syncope, paralysis, ataxia, numbness or tingling in the extremities. No change in bowel or bladder control. MUSCULOSKELETAL: No muscle pain, back pain, joint pain or stiffness. Chest Pain PMH - Past Medical History Medical history: Reports: atrial fibrillation, CHF, COPD, diabetes, hyperlipidemia, renal disease Surgical history: Reports: pacemaker/AICD Psychiatric history: Reports: no psych history - Social History Smoking Status: Former smoker Alcohol use: Reports: none Drug use: Reports: none Physical Exam General appearance: NAD, conversant Eyes: anicteric sclerae, moist conjunctivae; PERRL HENT: Atraumatic; oropharynx clear with moist mucous membranes and no mucosal ulcerations Neck: Normal inspection; Trachea midline; FROM, supple Lungs: CTA, with normal respiratory effort and no intercostal retractions CV: RRR, no MRGs ; midline scar from previous bypass. Pacemaker to the left chest. Abdomen: Soft, non-tender; no rebound or gaurding Extremities: No peripheral edema or extremity lymphadenopathy Skin: Normal temperature; no rash, ulcers or lesions Psych: Appropriate mood and affect Neuro: alert and oriented to person, place and time - General Limitations: no limitations General appearance: alert, in no apparent distress Course - Reevaluation(s) Reevaluation #1: Patient continues to be chest pain-free. Chest x-ray shows 1. Progressive right-sided pleuroparenchymal disease. 2. Minimal left basilar atelectasis versus pneumonia. Patient received aspirin. Troponin negative. Will bring in for further observation and management. - Consultations Consultation #1: Discussed with Dr. Galloway. Pt accepted for admission. Vital Signs Temperature 97.5 F L 02/24/17 04:18 Pulse Rate 85 02/24/17 04:18 Respiratory Rate 18 02/24/17 04:18 Blood Pressure 102/51 02/24/17 04:18 O2 Sat by Pulse Oximetry 100 02/24/17 04:18 Temperature 97.5 F L 02/24/17 04:18 Pulse Rate 72 02/24/17 05:45 Respiratory Rate 18 02/24/17 04:18 Blood Pressure 102/54 02/24/17 05:45 O2 Sat by Pulse Oximetry 97 02/24/17 05:45 Oxygen Delivery Oxygen Delivery Room Air Chest Pain - Medical Records Medical records reviewed: Yes I reviewed the patient's medical records. - Lab Data Lab results reviewed: Yes I reviewed the patient's lab results. Result diagrams: 02/24/17 04:30 02/24/17 04:30 Lab Results 02/24/17 02/24/17 02/24/17 Range/Units 04:30 04:30 04:30 WBC 10.1 (4.3-11.1) K/mcL RBC 3.67 L (4.19-5.50) M/mcL Hgb 10.5 L (12.9-16.9) g/dL Hct 33.8 L (37.5-50.1) % MCV 92.1 (83.0-100.0) fL MCH 28.6 (28.0-33.3) pg MCHC 31.1 L (31.6-35.5) g/dL RDW 16.2 H (11.5-14.5) % Plt Count 186 (140-400) K/mcL MPV 11.0 (9.4-12.4) fL Immature Gran % 0.4 (0-4) % Seg Neutrophils % 66.2 % Lymphocytes % 22.2 % Monocytes % 7.0 % Eosinophils % 3.6 % Basophils % 0.6 % Neutrophils # 6.7 (1.6-8.9) K/mcL Lymphocytes # 2.2 (0.6-4.6) K/mcL Monocytes # 0.7 (0.0-1.3) K/mcL Eosinophils # 0.4 (0.0-0.6) K/mcL Basophils # 0.1 (0.0-0.2) K/mcL PT 12.3 H (9.4-12.1) Seconds INR 1.1 APTT 32.0 (26.0-36.0) Seconds Sodium (136-145) mEq/L Potassium (3.5-4.5) mEq/L Chloride (98-109) mEq/L Carbon Dioxide (19-29) mEq/L BUN (8-26) mg/dL Creatinine (0.72-1.25) mg/dL Est GFR ( Amer) (> 60) Est GFR (Non-Af Amer) (> 60) BUN/Creatinine Ratio (6-26) Glucose (70-99) mg/dL Calculated Osmolality (280-300) Calcium (8.6-10.8) mg/dL Troponin I (0-0.03) ng/mL B-Natriuretic Peptide 338 H (0-100) pg/mL 02/24/17 02/24/17 Range/Units 04:30 04:30 WBC (4.3-11.1) K/mcL RBC (4.19-5.50) M/mcL Hgb (12.9-16.9) g/dL Hct (37.5-50.1) % MCV (83.0-100.0) fL MCH (28.0-33.3) pg MCHC (31.6-35.5) g/dL RDW (11.5-14.5) % Plt Count (140-400) K/mcL MPV (9.4-12.4) fL Immature Gran % (0-4) % Seg Neutrophils % % Lymphocytes % % Monocytes % % Eosinophils % % Basophils % % Neutrophils # (1.6-8.9) K/mcL Lymphocytes # (0.6-4.6) K/mcL Monocytes # (0.0-1.3) K/mcL Eosinophils # (0.0-0.6) K/mcL Basophils # (0.0-0.2) K/mcL PT (9.4-12.1) Seconds INR APTT (26.0-36.0) Seconds Sodium 137 (136-145) mEq/L Potassium 4.3 (3.5-4.5) mEq/L Chloride 102 (98-109) mEq/L Carbon Dioxide 25 (19-29) mEq/L BUN 53 H (8-26) mg/dL Creatinine 2.07 H (0.72-1.25) mg/dL Est GFR ( Amer) 38 L (> 60) Est GFR (Non-Af Amer) 31 L (> 60) BUN/Creatinine Ratio 26 (6-26) Glucose 93 (70-99) mg/dL Calculated Osmolality 298 (280-300) Calcium 9.1 (8.6-10.8) mg/dL Troponin I 0.01 (0-0.03) ng/mL B-Natriuretic Peptide (0-100) pg/mL - Radiology Data Radiology results reviewed: Yes I reviewed the patient's radiology results. - EKG Data EKG attestation: Yes I reviewed and interpreted this EKG. EKG results narrative: EKG shows ventricularly paced rhythm at a ventricular rate of 70 bpm. QRS 146. QTC 461. No significant ST elevation or depression. No significant change from 02/07/17.
[2017-02-24] MEDS ORDERED: Naloxone 0.4 MG/ML INJ IVP PRN (08:37)
[2017-02-24] MEDS ORDERED: Ondansetron 4 MG/2 ML VIAL IVP PRN (08:37)
[2017-02-24] MEDS ORDERED: Mag Hydrox/Al Hydrox/Simeth 30 ML UDC PO PRN (08:37)
[2017-02-24] MEDS ORDERED: Acetaminophen 325 MG TABLET PO PRN (08:37)
[2017-02-24] MEDS ORDERED: MOM Conc 10 ML UD.LIQ PO PRN (08:37)
[2017-02-24] MEDS ORDERED: (Melatonin/Pyridoxine Hcl (B6) [Melatonin 3 Mg Tablet PO PRN (08:39)
[2017-02-24] MEDS ORDERED: Nitroglycerin 0.4 MG TAB.SUBL SL PRN (08:39)
[2017-02-24] MEDS ORDERED: D5% in Water 1,000 ML IVC PRN (08:43)
[2017-02-24] MEDS ORDERED: *HR* Dextrose 50 % in Water (Syg) 50 ML SYRINGE IVP PRN (08:43)
[2017-02-24] MEDS ORDERED: Dextrose Gel 15 GM PO PRN ×2 (08:43)
[2017-02-24] MEDS ORDERED: FluocinoNIDE 0.05% CRM 15 GM TUBE TP SCH (09:00)
[2017-02-24] MEDS ORDERED: Metoprolol XL (24 HR) Succ 25 MG TAB.ER.24H PO SCH (09:00)
[2017-02-24] MEDS ORDERED: Ketoconazole 2% CRM 15 GM TUBE TP SCH (09:00)
[2017-02-24] MEDS ORDERED: NUT TX GLUC INTOLER LAC FR SOY PO SCH (09:00)
[2017-02-24] MEDS: Finasteride 5 MG TABLET PO SCH (09:52)
[2017-02-24] MEDS: Pregabalin 25 MG CAPSULE PO SCH ×2 (09:52→22:03)
[2017-02-24] MEDS: Aspirin 81 MG TAB.CHEW PO SCH (09:52)
[2017-02-24] MEDS: Sennosides 8.6 MG TABLET PO SCH ×3 (09:53→22:03)
[2017-02-24] MEDS: Cholecalciferol (D-3) 1,000 UNIT TABLET PO SCH (09:53)
[2017-02-24] MEDS: Insulin DETEMIR 100 UNIT/ML X5UNITS SQ SCH (09:54)
--- NOTE | 2017-02-24 11:38 | Internal Med History&Physical ---
Date of Encounter: 02/24/17 Time of Encounter: 08:30 Assessment and Plan (1) Chest pain Current visit: Yes Status: Acute Pt with hx of angina. Most likely this was episode that has resolved. Will get troponins. Pain may have resulted from exertion to have bowel movement. Continue home meds for now. 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 Will check KUB. Added miralax. May need further treatment. (3) CHF (congestive heart failure) Current visit: No Status: Chronic At this point he appears to be euvolemic. Creatinine slightly elevated so will decrease diuresis but continue fluid restriction. Will need resume higher diuresis tomorrow. Qualifiers: Congestive heart failure type: systolic Congestive heart failure chronicity : chronic Qualified Code(s): I50.22 - Chronic systolic (congestive) heart failure (4) CKD (chronic kidney disease) stage 3, GFR 30-59 ml/min Current visit: Yes Status: Chronic Slightly worse than baseline. Recheck labs tomorrow. (5) Pleural effusion Current visit: No Status: Chronic Monitor. (6) Coronary artery disease Current visit: No Status: Chronic Chronic issue. Continue meds. Qualifiers: Coronary Disease-Associated Artery/Lesion type: [place] artery [place] vs. transplanted heart: kiana heart Associated angina: with stable angina Qualified Code(s): I25.118 - Atherosclerotic heart disease of [place] coronary artery with other forms of angina pectoris (7) Diabetes Current visit: No Status: Chronic Accuchecks and coverage ordered. Qualifiers: Diabetes mellitus type: type 2 Diabetes mellitus complication status: with neurologic complications Diabetes mellitus complication detail: with polyneuropathy Diabetes mellitus long term care phlebotomist insulin use: with long term care phlebotomist use Qualified Code(s): E11.42 - Type 2 diabetes mellitus with diabetic polyneuropathy; Z79.4 - terminal system operator (current) use of insulin; Z79.4 - senior care ( current) use of insulin; Z79.4 - senior care (current) use of insulin; Z79.4 - terminal system operator (current) use of insulin (8) BPH (benign prostatic hyperplasia) Current visit: No Status: Chronic Continue home meds. Qualifiers: Lower urinary tract symptom presence: symptoms present Lower urinary tract symptom detail: straining on urination Qualified Code(s): N40.1 - Benign prostatic hyperplasia with lower urinary tract symptoms; R39.16 - Straining to void; R39.16 - Straining to void Internal Medicine - H&P: HPI Admitted From: Emergency Dept Plans for Post Hospital Care: Home History of present illness: Mr. Krishna is a 81 year old male with hx of chronic CHF presented to ED with complaints of "angina." Pt has hx of chronic angina and has nitro tablets at home. He has been significantly constipated in last few days and during the evening he noted some L side chest discomfort. He felt he should come in for evaluation - mostly for the constipation. Denies worsening dyspnea. No abd pain. Urinating OK. Has tried multiple different laxatives at home with no relief. Currently he is sitting comfortably in bed and denies chest pain at this time. Denies dyspnea or other symptoms. Past Med Surg Social Fam HX - Past Medical History Source: patient, old records reviewed Medical history: atrial fibrillation, CHF, COPD, diabetes, hyperlipidemia, renal disease Psychiatric history: no psych history - Past Surgical History Surgical History: pacemaker/AICD - Social History Smoking Status: Former smoker Smokeless Tobacco Status: No Alcohol use: none Drug use: none - Family History Mother Living Status: Hx Family Cardiac Disorders: Yes Hx Family Respiratory Disorders: No Hx Family Cancer: No Hx Family GI Disorders: No Hx Family Endocrine Disorder: No Hx Family Neuromuscular Disorders: No Hx Family Neurologic Disorders: Yes Hx Family HEENT Disorders: No Hx Family Autoimmune Disorders: No Father Living Status: Hx Family Cardiac Disorders: Yes Brother Hx Family Cardiac Disorders: Yes Hx Family Respiratory Disorders: No Hx Family Cancer: Yes Hx Family GI Disorders: No Hx Family Endocrine Disorder: No Hx Family Neuromuscular Disorders: No Hx Family Neurologic Disorders: No Hx Family HEENT Disorders: No Hx Family Autoimmune Disorders: No Internal Medicine - H&P: Meds Albuterol Sulfate [Albuterol Inhaler] 2 puff IH BID PRN 01/18/16 [History] Allopurinol [Zyloprim 300 MG] 300 mg PO DAILY 01/18/16 [History] Aspirin 162 mg PO DAILY 01/18/16 [History] Calcium Carbonate/Vitamin D3 [Calcium 500-Vit D3 200 Caplet] 1 tab PO BID [History] Cholecalciferol (D-3) [Vitamin D] 4,000 unit PO DAILY 01/18/16 [History] Digoxin [Lanoxin] 0.125 mg PO MOWEFR 01/18/16 [History] Docusate Sodium [Dok] 100 mg PO BID 01/18/16 [History] Ferrous Sulfate 325 mg PO BID 01/18/16 [History] Nitroglycerin [Nitrostat] 0.4 mg SL Q5M PRN 01/18/16 [History] Sennosides [Senna] 8.6 mg PO TID 01/18/16 [History] Betamethasone Dipropionate 1 appl TP TID 11/25/16 [History] Insulin Glargine,Hum.rec.anlog [Lantus Solostar] 30 unit SQ QAM 11/25/16 [ History] Ketoconazole 2% CRM [Nizoral Cream] 1 appl TP BID 11/25/16 [History] Lidocaine Patch [Lidoderm 5% patch] 2 patch TP DAILY 11/25/16 [History] Finasteride [Proscar] 5 mg PO DAILY 11/29/16 [History] Pregabalin [Lyrica] 25 mg PO BID 11/29/16 [History] Tamsulosin HCl [Flomax] 0.4 mg PO HS 11/29/16 [History] metOLazone [Zaroxolyn] 5 mg PO DAILY #30 tab 12/03/16 [Rx] Melatonin/Pyridoxine HCl (B6) [Melatonin 3 mg Tablet] 9 mg PO HS PRN 01/31/17 [ History] Metoprolol Succinate 25 mg PO DAILY 01/31/17 [History] Nut.tx.gluc.intoler,Lac-Fr,Soy [Glucerna] 237 ml PO DAILY 01/31/17 [History] Oxycodone HCl [Oxaydo] 2.5 mg PO TID PRN 01/31/17 [History] Pantoprazole Sodium [Protonix] 40 mg PO DAILY 02/08/17 [History] Clopidogrel [Plavix] 75 mg PO DAILY #30 tablet 02/10/17 [Rx] Furosemide [Lasix] 40 mg PO TID #30 tablet 02/10/17 [Rx] Lisinopril [Zestril] 5 mg PO DAILY #30 tablet 02/10/17 [Rx] 3 Allergy/AdvReac Type Severity Reaction Status Date / Time atorvastatin Allergy See Verified 02/07/17 15:30 Comments rosuvastatin Allergy See Verified 02/07/17 15:30 Comments All Systems PM: A 10-system review of systems was performed and is negative for pertinent findings except as documented above in the HPI. - Constitutional Constitutional: no chills, no weight gain - EENT Eyes: no blurry vision, no dry eye Ears: no ear discharge, no ear pain Nose, mouth and throat: no dry mouth, no mouth pain, no sinus pain - Cardiovascular Cardiovascular ROS IM: chest pain, dyspnea, orthopnea, no syncope - Respiratory Respiratory: dyspnea, dyspnea on exertion, no wheezing, no chest congestion - Gastrointestinal Gastrointestinal: bloating, constipation, no diarrhea, no heartburn, no melena - Genitourinary Genitourinary ROS male: urinary hesitancy, no difficulty urinating, no nocturia - Musculoskeletal Musculoskeletal ROS IM: arthralgias, no myalgias, no numbness - Integumentary Integumentary IM: no erythema, no rash - Neurological Neurological ROS: no abnormal gait, no dizziness, no numbness, no tingling - Endocrine Endocrine IM: no excessive sweating, no flushing - Hematologic/Lymphatic Hematologic/Lymphatic: no easy bleeding - Allergic/Immunologic Allergic/Immunologic: no tongue swelling - Constitutional Vitals: Temp Pulse Resp BP Pulse Ox 97.4 F L 69 15 89/44 96 02/24/17 11:06 02/24/17 11:06 02/24/17 11:06 02/24/17 11:06 02/24/17 11:06 General appearance: Present: A&O X 3, pleasant, answers questions appropriately - Head Head exam: Present: atraumatic, normocephalic - Eye Eye exam: Present: EOMI, PERRL, conjuntiva pink - ENT ENT exam: Present: mucous membranes moist, normal exam - Neck Neck exam general surgery: Present: normal inspection. Absent: lymphadenopathy , nuchal rigidity, thyromegaly - Respiratory Respiratory exam: Present: decreased breath sounds. Absent: wheezes Additional comments: Significantly decreased breath sounds on R. - Cardiovascular Cardiovascular exam: Present: distant heart sounds, RRR. Absent: tachycardia - GI/Abdominal GI/Abdominal exam: Present: soft. Absent: mass, tenderness - Extremities Exam Extremities exam: Present: warm. Absent: joint swelling, tenderness - Neurological Exam Neurological exam: Present: alert, oriented X3, no focal deficits - Skin Skin exam: Present: dry, warm. Absent: rash Internal Med - H&P Results - Labs CBC & Chem 7: 02/24/17 04:30 02/24/17 04:30 Labs: Cardiac Enzymes 02/24/17 Range/Units 09:11 Troponin I 0.02 (0-0.03) ng/mL
[2017-02-24] MEDS: Insulin LISPRO 300 UNITS/3 ML VIAL SQ SCH ×3 (11:58→21:39)
[2017-02-24] MEDS: *HR* Heparin 5,000 UNIT/ML VIAL SQ SCH (17:56)
[2017-02-24] MEDS ORDERED: Furosemide 40 MG TABLET PO SCH (21:00)
[2017-02-24] MEDS: Melatonin 3 MG TABLET PO SCH (22:03)
[2017-02-24] MEDS: *HR* OxyCODONE Immed Rel 5 MG TABLET PO PRN (22:04)
[2017-02-25 05:11] LABS: Basophils # 0.1 K/mcL (0.0-0.2); Basophils % 0.6 %; Eosinophils # 0.2 K/mcL (0.0-0.6); Eosinophils % 2.1 %; Hematocrit 29.5 % (37.5-50.1); Hemoglobin 9.3 g/dL (12.9-16.9); Immature Granulocytes % 0.4 % (0-4); Lymphocytes % 18.9 %; Mean Corpuscular HGB Conc 31.5 g/dL (31.6-35.5); Mean Corpuscular Hemoglobin 28.8 pg (28.0-33.3); Mean Corpuscular Volume 91.3 fL (83.0-100.0); Mean Platelet Volume 10.7 fL (9.4-12.4); Monocytes # 0.8 K/mcL (0.0-1.3); Neutrophils # 7.6 K/mcL (1.6-8.9); Platelet Count 157 K/mcL (140-400); Red Blood Count 3.23 M/mcL (4.19-5.50); Red Cell Distribution Width 16.2 % (11.5-14.5)
[2017-02-25 05:25] LABS: Calcium 8.8 mg/dL (8.6-10.8); Magnesium 2.7 mg/dL (1.6-2.6); Potassium 4.5 mEq/L (3.5-4.5)
--- NOTE | 2017-02-25 05:51 | Electrocardiograph Report ---
[place] [id number] Test Date: 2017-02-24 Pat Name: Haider Krishna Department: 103 Room: 2A Gender: M Clinical Supervisor: [employer]' : [id number] Requested By: Rakesh Ramirez Order Number: [id number] Reading MD: Juan Manuel Rebollar MD Measurements Intervals [place] Rate: 70 P: CO: 0 QRS: -60 QRSD: 146 T: 124 QT: 440 QTc: 461 Interpretive Statements ELECTRONIC VENTRICULAR PACEMAKER Electronically Signed On 02-25-2017 5:50:12 EST by Juan Manuel Rebollar MD
[2017-02-25] MEDS: *HR* Heparin 5,000 UNIT/ML VIAL SQ SCH ×2 (06:28→17:12)
[2017-02-25] MEDS ORDERED: Metoprolol XL (24 HR) Succ 25 MG TAB.ER.24H PO SCH (07:35)
[2017-02-25] MEDS: Insulin LISPRO 300 UNITS/3 ML VIAL SQ SCH ×4 (09:37→20:52)
[2017-02-25] MEDS: Cholecalciferol (D-3) 1,000 UNIT TABLET PO SCH (09:41)
[2017-02-25] MEDS: Pregabalin 25 MG CAPSULE PO SCH ×2 (09:41→20:42)
[2017-02-25] MEDS: Aspirin 81 MG TAB.CHEW PO SCH (09:42)
[2017-02-25] MEDS: Sennosides/Docusate Sodium TABLET PO SCH ×2 (09:42→20:42)
[2017-02-25] MEDS: Finasteride 5 MG TABLET PO SCH (09:42)
[2017-02-25] MEDS: Furosemide 40 MG TABLET PO SCH ×2 (09:43→17:12)
[2017-02-25] MEDS: *HR* OxyCODONE Immed Rel 5 MG TABLET PO PRN ×2 (09:44→20:43)
[2017-02-25] MEDS: Insulin DETEMIR 100 UNIT/ML X5UNITS SQ SCH (09:50)
[2017-02-25] MEDS: *HR* Digoxin 0.125 MG TABLET PO SCH (09:50)
--- NOTE | 2017-02-25 16:25 | Internal Med Progress Note ---
Date of Encounter: 02/25/17 Time of Encounter: 15:30 - Assessment and plan (1) Itneb-ef-wzvsont kidney injury Current Visit: Yes Status: Acute Assessment and plan: Renal function worsened from previous day will decrease lasix dose avoid nephrotoxic agents will continue to closely monitor Qualifiers: Acute renal failure type: unspecified Chronic kidney disease stage: stage 3 (moderate) Qualified Code(s): N17.9 - Acute kidney failure, unspecified; N18.3 - Chronic kidney disease, stage 3 (moderate); N18.3 - Chronic kidney disease, stage 3 (moderate) (2) Chest pain Current Visit: Yes Status: Resolved Assessment and plan: serial TNI negative chest pain resolved will continue home meds, noted history CAD Qualifiers: Chest pain type: chest pain due to myocardial ischemia Qualified Code(s): 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 (3) Constipation by delayed colonic transit Current Visit: Yes Status: Acute Assessment and plan: will continue bowel regimen reports of having a BM this morning (4) DVT prophylaxis Current Visit: No Status: Acute Assessment and plan: Heparin SQ (5) CHF (congestive heart failure) Current Visit: No Status: Chronic Assessment and plan: not in acute exacerbation noted to have mild worsening of renal function Decreased Lasix to 40mg POBID will closely monitor renal function Qualifiers: Congestive heart failure type: systolic Congestive heart failure chronicity : chronic Qualified Code(s): I50.22 - Chronic systolic (congestive) heart failure (6) Coronary artery disease Current Visit: No Status: Chronic Qualifiers: Coronary Disease-Associated Artery/Lesion type: [place] artery [place] vs. transplanted heart: [place] heart Associated angina: with stable angina Qualified Code(s): I25.118 - Atherosclerotic heart disease of [place] coronary artery with other forms of angina pectoris (7) Diabetes Current Visit: No Status: Chronic Assessment and plan: continue sliding scale insulin algorithm monitor FS and BG ADA diet home dose of insulin Qualifiers: Diabetes mellitus type: type 2 Diabetes mellitus complication status: with neurologic complications Diabetes mellitus complication detail: with polyneuropathy Diabetes mellitus parts counterman insulin use: with assisted use Qualified Code(s): E11.42 - Type 2 diabetes mellitus with diabetic polyneuropathy; Z79.4 - intermediate frame tender (current) use of insulin; Z79.4 - intermediate frame tender ( current) use of insulin; Z79.4 - detention (current) use of insulin; Z79.4 - intermediate frame tender (current) use of insulin - Subjective Interval history: Patient seen and examined at bedside. Resting in bed and reports of feeling better compared to previous day. Reports of having a bowel movement earlier this morning. Denies any chest pain or shortness of breath at this time. - Constitutional Vitals: Temp Pulse Resp BP Pulse Ox 98.0 F 70 17 103/62 94 02/25/17 11:04 02/25/17 11:04 02/25/17 11:04 02/25/17 11:04 02/25/17 11:04 General appearance: Present: A&O X 3, pleasant, no acute distress, answers questions appropriately - Head Head exam: Present: atraumatic, normocephalic - Eye Eye exam: Present: conjuntiva pink, sclera anicteric - Respiratory Respiratory exam: Absent: respiratory distress, wheezes - Cardiovascular Cardiovascular exam: Present: RRR, +S1, +S2. Absent: diastolic murmur, gallop, rubs, systolic murmur - GI/Abdominal GI/Abdominal exam: Present: normal bowel sounds, soft, no peritoneal signs. Absent: tenderness - Extremities Exam Extremities exam: Present: warm, radial pulses palpable and symmetrical. Absent : calf tenderness - Neurological Exam Neurological exam: Present: alert, oriented X3 Internal Medicine: Result - Labs CBC & Chem 7: 02/25/17 04:48 02/25/17 04:48 Labs: Short CBC 02/25/17 Range/Units 04:48 WBC 10.7 (4.3-11.1) K/mcL Hgb 9.3 L (12.9-16.9) g/dL Hct 29.5 L (37.5-50.1) % Plt Count 157 (140-400) K/mcL Neutrophils # 7.6 (1.6-8.9) K/mcL BMP 02/25/17 04:48 Sodium 138 Potassium 4.5 Chloride 105 Carbon Dioxide 22 BUN 58 H Creatinine 2.18 H Glucose 67 L Calcium 8.8 Cardiac Enzymes 02/24/17 Range/Units 20:05 Troponin I 0.02 (0-0.03) ng/mL - ABG Interpretation ABG results: PT/INR, D-dimer PT 12.3 Seconds (9.4-12.1) H 02/24/17 04:30 Consult Discharge Plan - Plan [facility]errals: [facility] [Primary Care Provider[facility] -
[2017-02-25] MEDS: Melatonin 3 MG TABLET PO SCH (20:43)
[2017-02-26] MEDS: *HR* Heparin 5,000 UNIT/ML VIAL SQ SCH ×2 (06:19→18:59)
[2017-02-26 07:04] LABS: Basophils % 0.5 %; Eosinophils # 0.3 K/mcL (0.0-0.6); Eosinophils % 3.6 %; Hemoglobin 8.7 g/dL (12.9-16.9); Immature Granulocytes % 0.4 % (0-4); Lymphocytes # 1.4 K/mcL (0.6-4.6); Lymphocytes % 16.9 %; Mean Corpuscular HGB Conc 31.1 g/dL (31.6-35.5); Mean Corpuscular Hemoglobin 28.6 pg (28.0-33.3); Mean Corpuscular Volume 92.1 fL (83.0-100.0); Mean Platelet Volume 11.1 fL (9.4-12.4); Monocytes # 0.6 K/mcL (0.0-1.3); Monocytes % 7.1 %; Neutrophils # 5.8 K/mcL (1.6-8.9); Platelet Count 143 K/mcL (140-400); Red Blood Count 3.04 M/mcL (4.19-5.50); Red Cell Distribution Width 16.2 % (11.5-14.5); Segmented Neutrophils % 71.5 %
[2017-02-26 07:13] LABS: Calcium 8.7 mg/dL (8.6-10.8); Magnesium 2.6 mg/dL (1.6-2.6); Potassium 5.3 mEq/L (3.5-4.5)
[2017-02-26] MEDS: Pregabalin 25 MG CAPSULE PO SCH ×2 (08:37→21:52)
[2017-02-26] MEDS: Cholecalciferol (D-3) 1,000 UNIT TABLET PO SCH (08:37)
[2017-02-26] MEDS: Metoprolol XL (24 HR) Succ 25 MG TAB.ER.24H PO SCH (08:38)
[2017-02-26] MEDS: Finasteride 5 MG TABLET PO SCH (08:38)
[2017-02-26] MEDS: Insulin DETEMIR 100 UNIT/ML X5UNITS SQ SCH (08:38)
[2017-02-26] MEDS: Sennosides/Docusate Sodium TABLET PO SCH ×2 (08:38→21:52)
[2017-02-26] MEDS: Aspirin 81 MG TAB.CHEW PO SCH (08:38)
[2017-02-26] MEDS: Insulin LISPRO 300 UNITS/3 ML VIAL SQ SCH ×4 (08:38→21:53)
[2017-02-26] MEDS: *HR* OxyCODONE Immed Rel 5 MG TABLET PO PRN ×2 (08:43→21:56)
[2017-02-26] MEDS: Furosemide 40 MG TABLET PO SCH (11:04)
--- NOTE | 2017-02-26 15:34 | Internal Med Progress Note ---
Date of Encounter: 02/26/17 Time of Encounter: 13:06 - Assessment and plan (1) Glnor-ic-edtxvom kidney injury Current Visit: Yes Status: Acute Assessment and plan: Renal function worsened from previous day pt noted to be hypotensive which could be contributing to his worsening renal function will hold antihypertensives for SBP<110 hold lasix at this time avoid nephrotoxic agents will continue to closely monitor Qualifiers: Acute renal failure type: unspecified Chronic kidney disease stage: stage 3 (moderate) Qualified Code(s): N17.9 - Acute kidney failure, unspecified; N18.3 - Chronic kidney disease, stage 3 (moderate); N18.3 - Chronic kidney disease, stage 3 (moderate) (2) Chest pain Current Visit: Yes Status: Resolved Assessment and plan: serial TNI negative chest pain resolved will continue home meds, noted history CAD Qualifiers: Chest pain type: chest pain due to myocardial ischemia Qualified Code(s): 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 (3) Constipation by delayed colonic transit Current Visit: Yes Status: Acute Assessment and plan: will continue bowel regimen reports of having a BM this morning (4) DVT prophylaxis Current Visit: No Status: Acute Assessment and plan: Heparin SQ (5) CHF (congestive heart failure) Current Visit: No Status: Chronic Assessment and plan: not in acute exacerbation holding lasix at this time given worsening renal function will closely monitor renal function Qualifiers: Congestive heart failure type: systolic Congestive heart failure chronicity : chronic Qualified Code(s): I50.22 - Chronic systolic (congestive) heart failure (6) Coronary artery disease Current Visit: No Status: Chronic Qualifiers: Coronary Disease-Associated Artery/Lesion type: [place] artery [place] vs. transplanted heart: [place] heart Associated angina: with stable angina Qualified Code(s): I25.118 - Atherosclerotic heart disease of [place] coronary artery with other forms of angina pectoris (7) Diabetes Current Visit: No Status: Chronic Assessment and plan: continue sliding scale insulin algorithm monitor FS and BG ADA diet home dose of insulin Qualifiers: Diabetes mellitus type: type 2 Diabetes mellitus complication status: with neurologic complications Diabetes mellitus complication detail: with polyneuropathy Diabetes mellitus [facility] insulin use: with [facility] use Qualified Code(s): E11.42 - Type 2 diabetes mellitus with diabetic polyneuropathy; Z79.4 - [facility] (current) use of insulin; Z79.4 - buttermaker continuous churn ( current) use of insulin; Z79.4 - [facility] (current) use of insulin; Z79.4 - [facility] (current) use of insulin - Subjective Interval history: Patient seen and examined at bedside. Denies any discomfort at this time. No overnight issues reported Noted to have worsening renal function despite lowering lasix dose. Currently euvolemic and has no signs of CHF decompensation. Will hold today's dose of lasix, if renal function improves, likely d/c in am. - Constitutional Vitals: Temp Pulse Resp BP Pulse Ox 97.3 F L 70 16 94/55 98 02/26/17 11:12 02/26/17 11:12 02/26/17 11:12 02/26/17 11:12 02/26/17 11:12 General appearance: Present: A&O X 3, pleasant, no acute distress, answers questions appropriately - Head Head exam: Present: atraumatic, normocephalic - Eye Eye exam: Present: conjuntiva pink, sclera anicteric - Respiratory Respiratory exam: Present: CTAB. Absent: respiratory distress, wheezes, tachypnea - Cardiovascular Cardiovascular exam: Present: RRR, +S1, +S2. Absent: diastolic murmur, gallop, rubs, systolic murmur - GI/Abdominal GI/Abdominal exam: Present: normal bowel sounds, soft, no peritoneal signs. Absent: distended, tenderness - Extremities Exam Extremities exam: Present: warm, radial pulses palpable and symmetrical. Absent : calf tenderness - Neurological Exam Neurological exam: Present: alert, oriented X3 Internal Medicine: Result - Labs CBC & Chem 7: 02/26/17 06:33 02/26/17 06:33 Labs: Short CBC 02/26/17 Range/Units 06:33 WBC 8.1 (4.3-11.1) K/mcL Hgb 8.7 L (12.9-16.9) g/dL Hct 28.0 L (37.5-50.1) % Plt Count 143 (140-400) K/mcL Neutrophils # 5.8 (1.6-8.9) K/mcL BMP 02/26/17 06:33 Sodium 135 L Potassium 5.3 H Chloride 104 Carbon Dioxide 24 BUN 65 H Creatinine 2.31 H Glucose 149 H Calcium 8.7 - ABG Interpretation ABG results: PT/INR, D-dimer PT 12.3 Seconds (9.4-12.1) H 02/24/17 04:30 Consult Discharge Plan - Plan [facility]: [facility] [Primary Care Provider[facility] -
[2017-02-26] MEDS: Melatonin 3 MG TABLET PO SCH (21:52)
[2017-02-27 05:22] LABS: Basophils # 0.1 K/mcL (0.0-0.2); Basophils % 0.6 %; Eosinophils # 0.4 K/mcL (0.0-0.6); Eosinophils % 4.9 %; Hematocrit 28.9 % (37.5-50.1); Hemoglobin 8.8 g/dL (12.9-16.9); Immature Granulocytes % 0.3 % (0-4); Lymphocytes # 1.7 K/mcL (0.6-4.6); Lymphocytes % 21.6 %; Mean Corpuscular HGB Conc 30.4 g/dL (31.6-35.5); Mean Corpuscular Hemoglobin 28.3 pg (28.0-33.3); Mean Corpuscular Volume 92.9 fL (83.0-100.0); Monocytes # 0.6 K/mcL (0.0-1.3); Monocytes % 7.8 %; Neutrophils # 5.1 K/mcL (1.6-8.9); Platelet Count 148 K/mcL (140-400); Red Blood Count 3.11 M/mcL (4.19-5.50); Red Cell Distribution Width 16.1 % (11.5-14.5); Segmented Neutrophils % 64.8 %
[2017-02-27] MEDS: *HR* Heparin 5,000 UNIT/ML VIAL SQ SCH (05:30)
[2017-02-27 05:36] LABS: Calcium 8.9 mg/dL (8.6-10.8); Magnesium 2.9 mg/dL (1.6-2.6); Phosphorous 4.1 mg/dL (2.3-4.7); Potassium 4.8 mEq/L (3.5-4.5)
[2017-02-27 07:11] VITALS: BP 102/55
[2017-02-27] MEDS: Insulin LISPRO 300 UNITS/3 ML VIAL SQ SCH ×2 (07:41→13:18)
[2017-02-27] MEDS: Metoprolol XL (24 HR) Succ 25 MG TAB.ER.24H PO SCH (08:16)
[2017-02-27] MEDS: Cholecalciferol (D-3) 1,000 UNIT TABLET PO SCH (08:20)
[2017-02-27] MEDS: Sennosides/Docusate Sodium TABLET PO SCH (08:20)
[2017-02-27] MEDS: Aspirin 81 MG TAB.CHEW PO SCH (08:21)
[2017-02-27] MEDS: *HR* Digoxin 0.125 MG TABLET PO SCH (08:21)
[2017-02-27] MEDS: Pregabalin 25 MG CAPSULE PO SCH (08:21)
[2017-02-27] MEDS: Finasteride 5 MG TABLET PO SCH (08:25)
[2017-02-27 10:24] LABS: INR 1.2; Prothrombin Time 12.5 Seconds (9.4-12.1)
[2017-02-27 10:27] LABS: Activated Partial Thrombo Time 33.6 Seconds (26.0-36.0)
[2017-02-27] MEDS: Insulin DETEMIR 100 UNIT/ML X5UNITS SQ SCH (10:32)
[2017-02-27] MEDS: *HR* OxyCODONE Immed Rel 5 MG TABLET PO PRN (10:32)
[2017-02-27 10:42] LABS: Bilirubin,Urine Negative (Negative); Blood,Urine Negative (Negative); Clarity,Urine Clear (Clear); Color,Urine Yellow (Yellow); Glucose,Urine (UA) Normal (Normal); Ketones,Urine Negative (Negative); Leukocyte Esterase,Urine Negative (Negative); Nitrite,Urine Negative (Negative); PH,Urine 5.5 pH Units (5.0-8.0); Protein,Urine Negative (Neg-Trace); Specific Gravity,Urine 1.018 (1.010-1.025); Urobilinogen,Urine Normal (Normal)
--- NOTE | 2017-02-27 12:20 | Discharge Summary ---
Date of Encounter: 02/27/17 Time of Encounter: 11:45 - Discharge Diagnosis (1) Gopji-wz-jtiuyek kidney injury Priority: Secondary Status: Resolved Qualifiers: Acute renal failure type: unspecified Chronic kidney disease stage: stage 3 (moderate) Qualified Code(s): N17.9 - Acute kidney failure, unspecified; N18.3 - Chronic kidney disease, stage 3 (moderate); N18.3 - Chronic kidney disease, stage 3 (moderate) (2) Chest pain Priority: Primary Status: Resolved Qualifiers: Chest pain type: unspecified Qualified Code(s): R07.9 - Chest pain, unspecified (3) Constipation by delayed colonic transit Priority: Primary Status: Acute (4) DVT prophylaxis Priority: Secondary Status: Acute (5) CHF (congestive heart failure) Priority: Secondary Status: Chronic Qualifiers: Congestive heart failure type: systolic Congestive heart failure chronicity : chronic Qualified Code(s): I50.22 - Chronic systolic (congestive) heart failure (6) Coronary artery disease Priority: Secondary Status: Chronic Qualifiers: Coronary Disease-Associated Artery/Lesion type: [place] artery [place] vs. 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 insulin use: with shelter use Qualified Code(s): E11.42 - Type 2 diabetes mellitus with diabetic polyneuropathy; Z79.4 - [facility] (current) use of insulin; Z79.4 - [employer] ( current) use of insulin; Z79.4 - [employer] (current) use of insulin; Z79.4 - [employer] (current) use of insulin - Discharge Medications Prescriptions: Furosemide [Lasix] 40 mg PO BID #30 tab Sennosides/Docusate Sodium [Senna Plus] 1 each PO DAILY PRN #30 tablet PRN Reason: Constipation Home Medications: Albuterol Sulfate [Albuterol Inhaler] 2 puff IH BID PRN 01/18/16 [History] Allopurinol [Zyloprim 300 MG] 300 mg PO DAILY 01/18/16 [History] Aspirin 162 mg PO DAILY 01/18/16 [History] Calcium Carbonate/Vitamin D3 [Calcium 500-Vit D3 200 Caplet] 1 tab PO BID [History] Cholecalciferol (D-3) [Vitamin D] 4,000 unit PO DAILY 01/18/16 [History] Digoxin [Lanoxin] 0.125 mg PO MOWEFR 01/18/16 [History] Docusate Sodium [Dok] 100 mg PO BID 01/18/16 [History] Ferrous Sulfate 325 mg PO BID 01/18/16 [History] Nitroglycerin [Nitrostat] 0.4 mg SL Q5M PRN 01/18/16 [History] Sennosides [Senna] 8.6 mg PO TID 01/18/16 [History] Betamethasone Dipropionate 1 appl TP TID 11/25/16 [History] Insulin Glargine,Hum.rec.anlog [Lantus Solostar] 30 unit SQ QAM 11/25/16 [ History] Ketoconazole 2% CRM [Nizoral Cream] 1 appl TP BID 11/25/16 [History] Lidocaine Patch [Lidoderm 5% patch] 2 patch TP DAILY 11/25/16 [History] Finasteride [Proscar] 5 mg PO DAILY 11/29/16 [History] Pregabalin [Lyrica] 25 mg PO BID 11/29/16 [History] Tamsulosin HCl [Flomax] 0.4 mg PO HS 11/29/16 [History] metOLazone [Zaroxolyn] 5 mg PO DAILY #30 tab 12/03/16 [Rx] Melatonin/Pyridoxine HCl (B6) [Melatonin 3 mg Tablet] 9 mg PO HS PRN 01/31/17 [ History] Metoprolol Succinate 25 mg PO DAILY 01/31/17 [History] Nut.tx.gluc.intoler,Lac-Fr,Soy [Glucerna] 237 ml PO DAILY 01/31/17 [History] Oxycodone HCl [Oxaydo] 2.5 mg PO TID PRN 01/31/17 [History] Pantoprazole Sodium [Protonix] 40 mg PO DAILY 02/08/17 [History] Clopidogrel [Plavix] 75 mg PO DAILY #30 tablet 02/10/17 [Rx] Lisinopril [Zestril] 5 mg PO DAILY #30 tablet 02/10/17 [Rx] Furosemide [Lasix] 40 mg PO BID #30 tab 02/27/17 [Rx] Sennosides/Docusate Sodium [Senna Plus] 1 each PO DAILY PRN #30 tablet 02/27/17 [Rx] Allergies/Adverse Reactions: 3 Allergy/AdvReac Type Severity Reaction Status Date / Time atorvastatin Allergy See Verified 02/07/17 15:30 Comments rosuvastatin Allergy See Verified 02/07/17 15:30 Comments Date of admission: 02/26/17 15:26 [facility] Discharging clinician: Crystal Dyer Anticipated date of discharge: 02/27/17 - Patient Status Disposition: Home Health Service Condition: Good Functional capacity at discharge: uses cane/walker Overall status at discharge: patient is back to baseline - Discharge Instructions Follow Up With: [facility] [Primary Care Provider] - Additional Instructions: Please follow up with your primary care physician within five days after your discharge from the hospital. your home dose of lasix has been decreased to 40mg twice a day because of your renal function. Senna plus as needed for constipation has been added to your home medications. Please continue all your other home medications as prescribed by your primary care physician. - Diet and Activity Activity: resume usual activities as tolerated Diet: diabetic diet, low fat, low cholesterol, low salt diet Hospital course: Mr. Krishna is a 81 year old male with PMH of CHF, CAD, CKD who presented to the ER for severe constipation and chest pain. Pt was started on aggressive bowel regimen and reported of having a bowel movement, which resolved his presenting symptoms. He was noted to have acute on chronic kidney due to which his home dose of lasix was readjusted. He responded well to therapy. He has been having regular bowel movements, renal function back to baseline. He is hemodynamically stable and will be discharged to home with continuation of his home health. - Time Spent with Patient Total time spent providing and/or coordinating discharge services: Less than 30 minutes - Constitutional Vitals: Temp Pulse Resp BP Pulse Ox 97.8 F 70 15 102/55 94 02/27/17 07:05 02/27/17 07:05 02/27/17 07:05 02/27/17 07:05 02/27/17 07:05 General appearance: Present: cooperative, A&O X 3, pleasant, no acute distress, answers questions appropriately - Head Head exam: Present: atraumatic, normocephalic - Eye Eye exam: Present: conjuntiva pink, sclera anicteric - Respiratory Respiratory exam: Present: CTAB. Absent: respiratory distress, wheezes - Cardiovascular Cardiovascular exam: Present: RRR, +S1, +S2. Absent: diastolic murmur, gallop, rubs, systolic murmur - GI/Abdominal GI/Abdominal exam: Present: normal bowel sounds, soft, no peritoneal signs. Absent: distended, tenderness - Extremities Exam Extremities exam: Present: warm, radial pulses palpable and symmetrical ( diffuse bruising on b/l UE ). Absent: calf tenderness - Neurological Exam Neurological exam: Present: alert, oriented X3 - Psychiatric Psychiatric exam: Present: normal affect, normal mood
--- NOTE | 2017-02-27 13:30 | Physician Discharge Referral ---
Home Health/Hosp Referral Info Transfer to: Home Health Provider in Charge Post Discharge: PCP - Diagnosis (1) Dxqsn-vk-vrplrmn kidney injury Priority: Secondary Status: Resolved (2) Chest pain Priority: Secondary Status: Resolved (3) Constipation by delayed colonic transit Priority: Primary Status: Acute (4) DVT prophylaxis Priority: Secondary Status: Acute (5) CHF (congestive heart failure) Priority: Secondary Status: Chronic (6) Coronary artery disease Priority: Secondary Status: Chronic (7) Diabetes Priority: Secondary Status: Chronic - Respiratory Orders Smoking Cessation: Smoking cessation has been advised. For more information, call the [place] Tobacco Quit Line at 5-086-WJWY-NOW. - Services Needed Following services are medically necessary services: Nursing, Home Health Aide, Physical Therapy, Occupational Therapy - Transfer Medications Prescriptions: Furosemide [Lasix] 40 mg PO BID #30 tab Sennosides/Docusate Sodium [Senna Plus] 1 each PO DAILY PRN #30 tablet PRN Reason: Constipation Home Medications: Albuterol Sulfate [Albuterol Inhaler] 2 puff IH BID PRN 01/18/16 [History] Allopurinol [Zyloprim 300 MG] 300 mg PO DAILY 01/18/16 [History] Aspirin 162 mg PO DAILY 01/18/16 [History] Calcium Carbonate/Vitamin D3 [Calcium 500-Vit D3 200 Caplet] 1 tab PO BID [History] Cholecalciferol (D-3) [Vitamin D] 4,000 unit PO DAILY 01/18/16 [History] Digoxin [Lanoxin] 0.125 mg PO MOWEFR 01/18/16 [History] Docusate Sodium [Dok] 100 mg PO BID 01/18/16 [History] Ferrous Sulfate 325 mg PO BID 01/18/16 [History] Nitroglycerin [Nitrostat] 0.4 mg SL Q5M PRN 01/18/16 [History] Sennosides [Senna] 8.6 mg PO TID 01/18/16 [History] Betamethasone Dipropionate 1 appl TP TID 11/25/16 [History] Insulin Glargine,Hum.rec.anlog [Lantus Solostar] 30 unit SQ QAM 11/25/16 [ History] Ketoconazole 2% CRM [Nizoral Cream] 1 appl TP BID 11/25/16 [History] Lidocaine Patch [Lidoderm 5% patch] 2 patch TP DAILY 11/25/16 [History] Finasteride [Proscar] 5 mg PO DAILY 11/29/16 [History] Pregabalin [Lyrica] 25 mg PO BID 11/29/16 [History] Tamsulosin HCl [Flomax] 0.4 mg PO HS 11/29/16 [History] metOLazone [Zaroxolyn] 5 mg PO DAILY #30 tab 12/03/16 [Rx] Melatonin/Pyridoxine HCl (B6) [Melatonin 3 mg Tablet] 9 mg PO HS PRN 01/31/17 [ History] Metoprolol Succinate 25 mg PO DAILY 01/31/17 [History] Nut.tx.gluc.intoler,Lac-Fr,Soy [Glucerna] 237 ml PO DAILY 01/31/17 [History] Oxycodone HCl [Oxaydo] 2.5 mg PO TID PRN 01/31/17 [History] Pantoprazole Sodium [Protonix] 40 mg PO DAILY 02/08/17 [History] Clopidogrel [Plavix] 75 mg PO DAILY #30 tablet 02/10/17 [Rx] Lisinopril [Zestril] 5 mg PO DAILY #30 tablet 02/10/17 [Rx] Furosemide [Lasix] 40 mg PO BID #30 tab 02/27/17 [Rx] Sennosides/Docusate Sodium [Senna Plus] 1 each PO DAILY PRN #30 tablet 02/27/17 [Rx] Allergies/Adverse Reactions: 3 Allergy/AdvReac Type Severity Reaction Status Date / Time atorvastatin Allergy See Verified 02/07/17 15:30 Comments rosuvastatin Allergy See Verified 02/07/17 15:30 Comments Certification: Further, I certify that my clinical findings support that this patient is homebound (i.e. absences from home require considerable and taxing effort and are for medical reasons or evangelical services or infrequently or short duration when for other reasons) because: Homebound Reason: Patient requires assistance of a person or device to safely leave home Attestation: My signature below is to certify that this patient is under my care and that I, or nurse practitioner, or a physician's medical billing assistant working with me, has a face-to -face encounter with this patient.
== END 2017-02-27 15:25 | disposition home health service (06) | DRG 683 ==
LOC: 2ANU 04:15 → EMEROO 04:15 → SUATTDRO 06:27 → 2ANU 06:54
PROVIDERS: ADMIT Hospitalist; ATTEND Internal Medicine